=== PATIENT | male | born 1950 | race Caucasian/White ===

== ENCOUNTER 2016-03-09 14:30 | Inpatient (IN) | payer MEDICARE, OTHER ==
[~2016-03-09] VITALS: Ht 177.8 cm; Wt 154.7 kg
[~2016-03-09 14:30] MED LIST: AMIT50TA3 PO; ARIP10TA14 PO; DIVA500T35 PO; DONE10TA43 PO; MEMA10TA11 PO; OLAN5TAB2 PO; ROSU10 PO; VALS80TA2 PO
[2016-03-09] MEDS ORDERED: LOSA50TA37 PO (14:45)
[2016-03-09] MEDS ORDERED: BISA5TAB12 PO (14:45)
[2016-03-09] MEDS ORDERED: VITAD1000 PO (14:45)
[2016-03-09] MEDS ORDERED: METO25 PO (14:45)
[2016-03-09] MEDS ORDERED: FAMO20 PO (14:45)
[2016-03-09] MEDS ORDERED: ASPI-556 PO (14:45)
[2016-03-09] MEDS ORDERED: ONDA4 PO (14:45)
[2016-03-09] MEDS ORDERED: DOCU250C91 PO (14:45)
[2016-03-09] MEDS ORDERED: HYDR25TA PO (14:45)
[2016-03-09] MEDS ORDERED: RIVA1PAT TD (14:45)
[2016-03-09] MEDS ORDERED: [UNRECOGNIZED DRUG - CODE] ID (14:45)
[2016-03-09] MEDS ORDERED: CLOZ100 PO (14:45)
[2016-03-09] MEDS ORDERED: IPRA3AMP4 NEB (14:45)
[2016-03-09] MEDS ORDERED: SIMV-259 PO (14:45)
[2016-03-09] MEDS ORDERED: ADV250 IH (14:45)
[2016-03-09] MEDS ORDERED: BISA10S PR (14:45)
[2016-03-09] MEDS ORDERED: ACET-2247 PO (14:45)
[2016-03-09 15:35] LABS: BASOPHILS # (AUTO) 0.03 K/uL (0.00-0.20); BASOPHILS % (AUTO) 0.3 % (0.0-2.0); EOSINOPHILS % (AUTO) 0.01 % (1.0-6.0); HEMATOCRIT 43.2 % (41-53); HEMOGLOBIN 13.9 g/dL (13.5-17.5); LYMPHOCYTES % (AUTO) 18.4 % (22.0-44.0); MEAN CORPUSCULAR HEMOGLOBIN 30.4 pg (26.0-34.0); MEAN CORPUSCULAR HGB CONC 32.3 G/dL (31.0-37.0); MEAN CORPUSCULAR VOLUME 94 fL (80-100); MONOCYTES # (AUTO) 1.2 K/uL (0.1-1.0); MONOCYTES % (AUTO) 11.5 % (2.0-9.0); NEUTROPHILS # (AUTO) 7.5 K/uL (1.8-7.7); NEUTROPHILS % (AUTO) 69.8 % (40.0-70.0); PLATELET COUNT (AUTO) 297 K/uL (150-450); RED BLOOD CELL COUNT(AUTO) 4.58 MIL/uL (4.50-5.90); RED CELL DISTRIBUTION WIDTH 15.5 % (11.5-14.5); WHITE BLOOD COUNT (AUTO) 10.7 K/uL (4.5-11.0)
[2016-03-09 15:38] LABS: APPEARANCE,URINE CLEAR (CLEAR); GLUCOSE, URINE (UA) NEGATIVE (NEGATIVE); KETONES,URINE 15 mg/dL (NEGATIVE); LEUKOCYTE ESTERASE ,URINE NEGATIVE (NEGATIVE); OCCULT BLOOD,URINE NEGATIVE (NEGATIVE); PH,URINE 5.5 (5.0-8.0); PROTEIN,URINE POS 1+ (NEGATIVE)
[2016-03-09 15:42] LABS: ADD UA MICROSCOPIC NO
[2016-03-09 15:44] LABS: ANION GAP 16 mmol/L (8-16); CALCIUM, TOTAL 10.3 mg/dL (8.8-10.5); CARBON DIOXIDE 25 mmol/L (22-29); CHLORIDE 110 mmol/L (98-107); CREATININE 1.29 mg/dL (0.60-1.30); GLOMERULAR FILTR. RATE CALC 56 mL/min (>60); POTASSIUM 4.1 mmol/L (3.5-5.1); SODIUM SERUM 151 mmol/L (136-145); UREA NITROGEN, BLOOD 40 mg/dL (7-18)
[2016-03-09 15:45] LABS: INR 1.1 (0.9-1.1)
[2016-03-09] MEDS ORDERED: ACETAMINOPHEN 1000 MG/ISO-OSM 100 ML IV ONE (15:45)
[2016-03-09 15:51] LABS: AMMONIA 14 umol/L (11-32)
[2016-03-09 15:52] LABS: TROPONIN I < 0.02 ng/mL (0.00-0.05)
[2016-03-09 16:00] LABS: B-TYPE NATRIURETIC PEPTIDE 29 pg/mL (0-100)
[2016-03-09] MEDS ORDERED: SODIUM CHLORIDE 0.9% 1,000 ML IV ONE (16:00)
[2016-03-09 16:11] LABS: LACTIC ACID 2.6 mmol/L (0.4-2.0)
[2016-03-09 16:13] LABS: ALANINE AMINOTRANSFERASE 42 U/L (12-78); ALBUMIN 4.3 g/dL (3.4-5.0); ASPARTATE AMINOTRANSFERASE 44 U/L (15-37); BILIRUBIN,TOTAL 0.5 mg/dL (0.1-1.0); CREATINE KINASE MB 3.3 ng/mL (0-5); TOTAL PROTEIN, SERUM 8.2 g/dL (6.4-8.2)
[2016-03-09 16:14] LABS: CREATINE KINASE, TOTAL 1300 U/L (39-308)
[2016-03-09] MEDS ORDERED: IOVERSOL 350 MG/ML 100 ML VIAL ONE (16:22)
[2016-03-09] MEDS ORDERED: SODIUM CHLORIDE 0.9% 100 ML ONE (16:22)
[2016-03-09 17:22] LABS: REFLEX LACTIC ACID? YES YES
[2016-03-09 17:27] LABS: INFLUENZA TYPE B NEGATIVE FOR TYPE B (NEGATIVE)
[2016-03-09 17:40] LABS: PROCALCITONIN (PCT) < 0.05 ng/mL (<0.50)
[2016-03-09] MEDS ORDERED: AZITHROMYCIN 500 MG/NS 250 ML IV ONE (17:45)
[2016-03-09] MEDS ORDERED: CefTRIAXone 1 GM/DEXTROSE 50 ML IV ONE (17:45)
[2016-03-09] MEDS ORDERED: IBUPROFEN 100 MG/5 ML SUSPENSION UDCUP PO ONE (19:00)
[2016-03-09] MEDS ORDERED: LORazepam 2 MG/ML VIAL IVP ONE (20:15)
[2016-03-09 23:03] VITALS: BP 130/73
[2016-03-10] MEDS ORDERED: INFLUENZA VIRUS VACCINE QVS 2016-17 (3YR+)/PF 60 MCG/0.5 ML SYRINGE IM ONE (00:15)
[2016-03-10 04:14] VITALS: BP 121/71
[2016-03-10 08:17] VITALS: BP 139/100
[2016-03-10 11:07] VITALS: BP 127/67
[2016-03-10 11:51] LABS: CALCIUM, TOTAL 9.6 mg/dL (8.8-10.5); CREATININE 1.37 mg/dL (0.60-1.30); POTASSIUM 3.9 mmol/L (3.5-5.1)
[2016-03-10 11:59] LABS: ALBUMIN 3.9 g/dL (3.4-5.0); BILIRUBIN,TOTAL 0.6 mg/dL (0.1-1.0); TOTAL PROTEIN, SERUM 7.6 g/dL (6.4-8.2)
[2016-03-10] MEDS ORDERED: IPRATROPIUM BROMIDE 0.5 MG/2.5 ML NEB SOLUTION NEB PRN (14:45)
[2016-03-10] MEDS: IPRATROPIUM BROMIDE 0.5 MG/2.5 ML NEB SOLUTION NEB SCH ×2 (16:11→20:12)
[2016-03-10] MEDS: ALBUTEROL SULFATE 2.5 MG/0.5 ML NEB SOLUTION NEB SCH ×2 (16:11→20:12)
[2016-03-10] MEDS: HEPARIN SODIUM,PORCINE 5,000 UNITS/ML VIAL SQ SCH ×2 (16:15→23:22)
[2016-03-10] MEDS: DEXTROSE 5%-WATER 1,000 ML IV SCH (16:18)
[2016-03-10 16:55] VITALS: BP 153/69
[2016-03-10 17:20] LABS: ANION GAP 13 mmol/L (8-16); CALCIUM, TOTAL 9.6 mg/dL (8.8-10.5); CARBON DIOXIDE 27 mmol/L (22-29); CHLORIDE 114 mmol/L (98-107); CREATININE 1.47 mg/dL (0.60-1.30); GLOMERULAR FILTR. RATE CALC 48 mL/min (>60); PHOSPHORUS 2.7 mg/dL (2.5-4.9); POTASSIUM 4.1 mmol/L (3.5-5.1); SODIUM SERUM 154 mmol/L (136-145); UREA NITROGEN, BLOOD 44 mg/dL (7-18)
[2016-03-10 17:26] LABS: PROCALCITONIN (PCT) < 0.05 ng/mL (<0.50)
[2016-03-10 19:29] VITALS: BP 144/88
[2016-03-10] MEDS ORDERED: BENZTROPINE MESYLATE 1 MG TABLET PO ONE (20:45)
[2016-03-10] MEDS: METOPROLOL TARTRATE 25 MG TABLET PO SCH (21:04)
[2016-03-10] MEDS: ACETAMINOPHEN 325 MG TABLET PO PRN (21:04)
[2016-03-10] MEDS: SIMVASTATIN 10 MG TABLET PO SCH (21:04)
[2016-03-10] MEDS: DOCUSATE SODIUM 250 MG CAPSULE PO SCH (21:04)
[2016-03-10] MEDS: CHOLECALCIFEROL (VIT D3) 1,000 UNITS TABLET PO SCH (21:04)
[2016-03-10] MEDS: NYSTATIN 15 GM POWDER BOTTLE TP SCH (21:23)
[2016-03-10 23:03] VITALS: BP 147/89
[2016-03-11] MEDS: ACETAMINOPHEN 325 MG TABLET PO PRN (01:23)
[2016-03-11] MEDS: HYDROCODONE/ACETAMINOPHEN 5-325 MG TABLET PO PRN (01:23)
[2016-03-11 01:38] VITALS: BP 145/75
[2016-03-11] MEDS ORDERED: LORazepam 2 MG/ML VIAL IVP ONE (02:00)
[2016-03-11] MEDS: DEXTROSE 5%-WATER 1,000 ML IV SCH ×2 (03:30→17:14)
[2016-03-11 05:39] VITALS: BP 129/83
[2016-03-11 07:12] LABS: BASOPHILS % (AUTO) 0.4 % (0.0-2.0); EOSINOPHILS % (AUTO) 0 % (1.0-6.0); HEMATOCRIT 39.8 % (41-53); HEMOGLOBIN 12.8 g/dL (13.5-17.5); LYMPHOCYTES # (AUTO) 2.1 K/uL (1.0-4.8); LYMPHOCYTES % (AUTO) 21.9 % (22.0-44.0); MEAN CORPUSCULAR HEMOGLOBIN 30.4 pg (26.0-34.0); MEAN CORPUSCULAR VOLUME 95 fL (80-100); MONOCYTES # (AUTO) 1.4 K/uL (0.1-1.0); MONOCYTES % (AUTO) 14.3 % (2.0-9.0); NEUTROPHILS # (AUTO) 6.1 K/uL (1.8-7.7); NEUTROPHILS % (AUTO) 63.4 % (40.0-70.0); PLATELET COUNT (AUTO) 249 K/uL (150-450); RED CELL DISTRIBUTION WIDTH 15.1 % (11.5-14.5); WHITE BLOOD COUNT (AUTO) 9.7 K/uL (4.5-11.0)
[2016-03-11 07:15] LABS: ALANINE AMINOTRANSFERASE 43 U/L (12-78); ALBUMIN 3.3 g/dL (3.4-5.0); ANION GAP 10 mmol/L (8-16); ASPARTATE AMINOTRANSFERASE 81 U/L (15-37); BILIRUBIN,TOTAL 0.6 mg/dL (0.1-1.0); CALCIUM, TOTAL 8.8 mg/dL (8.8-10.5); CARBON DIOXIDE 29 mmol/L (22-29); CHLORIDE 116 mmol/L (98-107); GLOMERULAR FILTR. RATE CALC > 60 mL/min (>60); PHOSPHORUS 3.5 mg/dL (2.5-4.9); POTASSIUM 3.4 mmol/L (3.5-5.1); SODIUM SERUM 155 mmol/L (136-145); TOTAL PROTEIN, SERUM 6.7 g/dL (6.4-8.2); UREA NITROGEN, BLOOD 40 mg/dL (7-18)
[2016-03-11] MEDS ORDERED: POTASSIUM CHLORIDE 20 MEQ ER TABLET PO ONE (08:00)
[2016-03-11] MEDS: METOPROLOL TARTRATE 25 MG TABLET PO SCH ×2 (08:15→21:00)
[2016-03-11] MEDS: ASPIRIN 81 MG EC TABLET PO SCH (08:15)
[2016-03-11] MEDS: CHOLECALCIFEROL (VIT D3) 1,000 UNITS TABLET PO SCH ×2 (08:15→21:00)
[2016-03-11] MEDS: FAMOTIDINE 20 MG TABLET PO SCH (08:15)
[2016-03-11] MEDS: HEPARIN SODIUM,PORCINE 5,000 UNITS/ML VIAL SQ SCH ×3 (08:16→23:18)
[2016-03-11] MEDS: FLUTICASONE/VILANTEROL 200-25 MCG/INH INHALER [14] IH SCH (08:16)
[2016-03-11] MEDS: NYSTATIN 15 GM POWDER BOTTLE TP SCH ×2 (08:16→20:39)
[2016-03-11] MEDS ORDERED: RIVASTIGMINE 4.6 MG/24 HOUR PATCH TD SCH (09:00)
[2016-03-11] MEDS ORDERED: LOSARTAN POTASSIUM 50 MG TABLET PO SCH (09:00)
[2016-03-11] MEDS ORDERED: HYDROCHLOROTHIAZIDE 25 MG TABLET PO SCH (09:00)
[2016-03-11 09:08] VITALS: BP 127/69
[2016-03-11] MEDS: IPRATROPIUM BROMIDE 0.5 MG/2.5 ML NEB SOLUTION NEB SCH ×4 (09:25→20:14)
[2016-03-11] MEDS: ALBUTEROL SULFATE 2.5 MG/0.5 ML NEB SOLUTION NEB SCH ×4 (09:25→20:14)
[2016-03-11] MEDS: AmLODIPine BESYLATE 5 MG TABLET PO SCH (11:21)
[2016-03-11 11:24] VITALS: BP 147/63
[2016-03-11] MEDS: POTASSIUM CHL 10 MEQ/WATER 50 ML IV SCH ×2 (11:41→12:52)
[2016-03-11 15:27] LABS: CALCIUM, TOTAL 9.2 mg/dL (8.8-10.5); CREATININE 1.48 mg/dL (0.60-1.30); POTASSIUM 4.4 mmol/L (3.5-5.1)
[2016-03-11 15:50] VITALS: BP 136/68
[2016-03-11] MEDS ORDERED: LORazepam 2 MG/ML VIAL IVP SCH (17:00)
[2016-03-11 19:30] VITALS: BP 131/64
[2016-03-11] MEDS: ACETAMINOPHEN 650 MG RECTAL SUPPOSITORY PR PRN (20:38)
[2016-03-11] MEDS: SIMVASTATIN 10 MG TABLET PO SCH (21:00)
[2016-03-11] MEDS: DOCUSATE SODIUM 250 MG CAPSULE PO SCH (21:00)
[2016-03-11] MEDS ORDERED: CloZAPine 25 MG TABLET PO SCH (21:00)
[2016-03-11] MEDS ORDERED: CloZAPine 100 MG TABLET PO SCH (21:00)
[2016-03-11] MEDS ORDERED: CloZAPine 100 MG TABLET PO ONE (21:30)
[2016-03-11] MEDS: LORazepam 2 MG/ML VIAL IVP PRN (21:49)
[2016-03-11 22:50] LABS: APPEARANCE,URINE CLOUDY (CLEAR); GLUCOSE, URINE (UA) NEGATIVE (NEGATIVE); KETONES,URINE 40 mg/dL (NEGATIVE); LEUKOCYTE ESTERASE ,URINE SMALL (NEGATIVE); OCCULT BLOOD,URINE MODERATE (NEGATIVE); PH,URINE 5.5 (5.0-8.0); PROTEIN,URINE POS 1+ (NEGATIVE)
[2016-03-11 22:55] LABS: ADD UA MICROSCOPIC YES
[2016-03-11 23:02] LABS: SQUAMOUS EPITHELIAL CELL,UR Few /LPF (None Seen)
[2016-03-12] VITALS (7 sets, daily range): BP systolic 135–189; BP diastolic 63–107
[2016-03-12] MEDS ORDERED: 0.9% SODIUM CHLORIDE 10 ML SYRINGE IVP PRN (03:15)
[2016-03-12] MEDS: DEXTROSE 5%-WATER 1,000 ML IV SCH ×2 (03:41→13:16)
[2016-03-12] MEDS: LORazepam 2 MG/ML VIAL IVP PRN ×3 (04:36→14:58)
[2016-03-12] MEDS: ACETAMINOPHEN 650 MG RECTAL SUPPOSITORY PR PRN (05:05)
[2016-03-12 06:49] LABS: BASOPHILS % (AUTO) 0.6 % (0.0-2.0); EOSINOPHILS % (AUTO) 0.2 % (1.0-6.0); HEMATOCRIT 42.5 % (41-53); HEMOGLOBIN 13.8 g/dL (13.5-17.5); LYMPHOCYTES # (AUTO) 3.1 K/uL (1.0-4.8); LYMPHOCYTES % (AUTO) 24.8 % (22.0-44.0); MEAN CORPUSCULAR HEMOGLOBIN 30.9 pg (26.0-34.0); MEAN CORPUSCULAR HGB CONC 32.5 G/dL (31.0-37.0); MEAN CORPUSCULAR VOLUME 95 fL (80-100); MONOCYTES # (AUTO) 1.7 K/uL (0.1-1.0); MONOCYTES % (AUTO) 13.5 % (2.0-9.0); NEUTROPHILS # (AUTO) 7.7 K/uL (1.8-7.7); NEUTROPHILS % (AUTO) 60.9 % (40.0-70.0); PLATELET COUNT (AUTO) 261 K/uL (150-450); RED BLOOD CELL COUNT(AUTO) 4.48 MIL/uL (4.50-5.90); RED CELL DISTRIBUTION WIDTH 15.2 % (11.5-14.5); WHITE BLOOD COUNT (AUTO) 12.6 K/uL (4.5-11.0)
[2016-03-12 07:31] LABS: ALANINE AMINOTRANSFERASE 56 U/L (12-78); ALBUMIN 3.6 g/dL (3.4-5.0); ANION GAP 7 mmol/L (8-16); ASPARTATE AMINOTRANSFERASE 105 U/L (15-37); BILIRUBIN,TOTAL 0.8 mg/dL (0.1-1.0); CARBON DIOXIDE 30 mmol/L (22-29); CHLORIDE 112 mmol/L (98-107); CREATINE KINASE MB 7.9 ng/mL (0-5); CREATININE 1.21 mg/dL (0.60-1.30); GLOMERULAR FILTR. RATE CALC 60 mL/min (>60); PHOSPHORUS 3.3 mg/dL (2.5-4.9); POTASSIUM 3.7 mmol/L (3.5-5.1); SODIUM SERUM 149 mmol/L (136-145); TOTAL PROTEIN, SERUM 7.1 g/dL (6.4-8.2); UREA NITROGEN, BLOOD 32 mg/dL (7-18)
[2016-03-12 07:33] LABS: CREATINE KINASE, TOTAL 2550 U/L (39-308)
[2016-03-12 07:38] LABS: LACTIC ACID 2.3 mmol/L (0.4-2.0)
[2016-03-12 08:28] LABS: REFLEX LACTIC ACID? YES YES
[2016-03-12] MEDS: HEPARIN SODIUM,PORCINE 5,000 UNITS/ML VIAL SQ SCH ×3 (08:59→23:58)
[2016-03-12] MEDS: FLUTICASONE/VILANTEROL 200-25 MCG/INH INHALER [14] IH SCH (09:00)
[2016-03-12] MEDS: METOPROLOL TARTRATE 25 MG TABLET PO SCH ×2 (09:00→21:20)
[2016-03-12] MEDS: ASPIRIN 81 MG EC TABLET PO SCH (09:00)
[2016-03-12] MEDS ORDERED: CloZAPine 25 MG TABLET PO SCH ×2 (09:00→21:00)
[2016-03-12] MEDS: CHOLECALCIFEROL (VIT D3) 1,000 UNITS TABLET PO SCH ×2 (09:01→21:20)
[2016-03-12] MEDS: FAMOTIDINE 20 MG TABLET PO SCH (09:01)
[2016-03-12] MEDS: NYSTATIN 15 GM POWDER BOTTLE TP SCH ×2 (09:01→21:21)
[2016-03-12] MEDS: AmLODIPine BESYLATE 5 MG TABLET PO SCH (09:01)
[2016-03-12] MEDS: IPRATROPIUM BROMIDE 0.5 MG/2.5 ML NEB SOLUTION NEB SCH ×4 (09:41→20:03)
[2016-03-12] MEDS: ALBUTEROL SULFATE 2.5 MG/0.5 ML NEB SOLUTION NEB SCH ×4 (09:41→20:03)
[2016-03-12 15:18] LABS: ABG A-A DIFF O2 77.3 mmHg (10-20.0); ABG BASE EXCESS -0.4 mmol/L (-2.0-3.0); ABG HCO3 24.6 mmol/L (22.0-26.0); ABG OXYHEMOGLOBIN 95.5 % (94.0-100.0); ABG PCO2 36 mmHg (35-45); ABG PH 7.443 (7.35-7.450); ALLEN TEST, BLOOD GAS Positive; TEMPERATURE, FAHRENHEIT, BG 99.2 FAHREN (96.0-98.6)
[2016-03-12] MEDS: BROMOCRIPTINE MESYLATE 2.5 MG TABLET PO SCH ×2 (16:01→21:22)
[2016-03-12] MEDS: DANTROLENE SODIUM IV SCH (16:02)
[2016-03-12] MEDS: CONTAINER EMPTY IV SCH (16:02)
[2016-03-12] MEDS ORDERED: MEMANTINE HCL 10 MG TABLET PO SCH (21:00)
[2016-03-12] MEDS ORDERED: CloZAPine 100 MG TABLET PO SCH ×2 (21:00)
[2016-03-12] MEDS: DOCUSATE SODIUM 250 MG CAPSULE PO SCH (21:20)
[2016-03-12] MEDS: SIMVASTATIN 10 MG TABLET PO SCH (21:20)
[2016-03-13] VITALS: BP 134/79
[2016-03-13] MEDS: DEXTROSE 5%-WATER 1,000 ML IV SCH ×2 (00:08→08:32)
[2016-03-13] MEDS: CONTAINER EMPTY IV SCH ×3 (00:09→16:18)
[2016-03-13] MEDS: DANTROLENE SODIUM IV SCH ×3 (00:09→16:18)
[2016-03-13 04:00] VITALS: BP 146/99
[2016-03-13 05:20] LABS: ANION GAP 7 mmol/L (8-16); CALCIUM, TOTAL 8.8 mg/dL (8.8-10.5); CARBON DIOXIDE 27 mmol/L (22-29); CHLORIDE 108 mmol/L (98-107); CREATININE 0.96 mg/dL (0.60-1.30); GLOMERULAR FILTR. RATE CALC > 60 mL/min (>60); PHOSPHORUS 3.3 mg/dL (2.5-4.9); POTASSIUM 3.9 mmol/L (3.5-5.1); SODIUM SERUM 142 mmol/L (136-145); UREA NITROGEN, BLOOD 27 mg/dL (7-18)
[2016-03-13] MEDS: ALBUTEROL SULFATE 2.5 MG/0.5 ML NEB SOLUTION NEB SCH ×4 (07:29→21:00)
[2016-03-13] MEDS: IPRATROPIUM BROMIDE 0.5 MG/2.5 ML NEB SOLUTION NEB SCH ×4 (07:29→21:00)
[2016-03-13 08:00] VITALS: BP 140/74
[2016-03-13] MEDS: BROMOCRIPTINE MESYLATE 2.5 MG TABLET PO SCH ×3 (08:28→21:02)
[2016-03-13] MEDS: METOPROLOL TARTRATE 25 MG TABLET PO SCH ×2 (08:28→21:03)
[2016-03-13] MEDS: AmLODIPine BESYLATE 5 MG TABLET PO SCH (08:29)
[2016-03-13] MEDS: FAMOTIDINE 20 MG TABLET PO SCH (08:29)
[2016-03-13] MEDS: CHOLECALCIFEROL (VIT D3) 1,000 UNITS TABLET PO SCH ×2 (08:29→21:03)
[2016-03-13] MEDS: ASPIRIN 81 MG EC TABLET PO SCH (08:29)
[2016-03-13] MEDS: HEPARIN SODIUM,PORCINE 5,000 UNITS/ML VIAL SQ SCH ×2 (08:30→16:27)
[2016-03-13] MEDS: NYSTATIN 15 GM POWDER BOTTLE TP SCH ×2 (08:30→21:03)
[2016-03-13] MEDS: FLUTICASONE/VILANTEROL 200-25 MCG/INH INHALER [14] IH SCH (08:31)
[2016-03-13] MEDS: LORazepam 2 MG/ML VIAL IVP PRN ×4 (08:31→21:02)
[2016-03-13 12:00] VITALS: BP 126/78
[2016-03-13] MEDS: DEXTROSE 5%-0.45% SODIUM CHL 1,000 ML IV SCH (12:36)
[2016-03-13 16:00] VITALS: BP 116/68
[2016-03-13 20:00] VITALS: BP 126/64
[2016-03-13] MEDS: SIMVASTATIN 10 MG TABLET PO SCH (21:03)
[2016-03-13] MEDS: DOCUSATE SODIUM 250 MG CAPSULE PO SCH (21:03)
[2016-03-14] VITALS (8 sets, daily range): BP systolic 99–147; BP diastolic 55–79
[2016-03-14] MEDS: CONTAINER EMPTY IV SCH ×3 (00:30→16:10)
[2016-03-14] MEDS: DANTROLENE SODIUM IV SCH ×3 (00:30→16:10)
[2016-03-14] MEDS: HEPARIN SODIUM,PORCINE 5,000 UNITS/ML VIAL SQ SCH ×3 (00:30→15:04)
[2016-03-14] MEDS: DEXTROSE 5%-0.45% SODIUM CHL 1,000 ML IV SCH (04:19)
[2016-03-14] MEDS: LORazepam 2 MG/ML VIAL IVP PRN ×3 (04:19→20:48)
[2016-03-14 05:05] LABS: ANION GAP 5 mmol/L (8-16); CALCIUM, TOTAL 8.4 mg/dL (8.8-10.5); CARBON DIOXIDE 29 mmol/L (22-29); CHLORIDE 105 mmol/L (98-107); CREATININE 0.92 mg/dL (0.60-1.30); GLOMERULAR FILTR. RATE CALC > 60 mL/min (>60); PHOSPHORUS 3.5 mg/dL (2.5-4.9); SODIUM SERUM 139 mmol/L (136-145); UREA NITROGEN, BLOOD 26 mg/dL (7-18)
[2016-03-14] MEDS: IPRATROPIUM BROMIDE 0.5 MG/2.5 ML NEB SOLUTION NEB SCH ×4 (07:51→20:24)
[2016-03-14] MEDS: ALBUTEROL SULFATE 2.5 MG/0.5 ML NEB SOLUTION NEB SCH ×4 (07:51→20:24)
[2016-03-14] MEDS: FLUTICASONE/VILANTEROL 200-25 MCG/INH INHALER [14] IH SCH (09:00)
[2016-03-14] MEDS: AmLODIPine BESYLATE 5 MG TABLET PO SCH (09:01)
[2016-03-14] MEDS: ASPIRIN 81 MG EC TABLET PO SCH (09:01)
[2016-03-14] MEDS: NYSTATIN 15 GM POWDER BOTTLE TP SCH ×2 (09:02→20:48)
[2016-03-14] MEDS: FAMOTIDINE 20 MG TABLET PO SCH (09:02)
[2016-03-14] MEDS: CHOLECALCIFEROL (VIT D3) 1,000 UNITS TABLET PO SCH ×2 (09:02→20:47)
[2016-03-14] MEDS: BROMOCRIPTINE MESYLATE 2.5 MG TABLET PO SCH ×3 (09:02→20:47)
[2016-03-14] MEDS: METOPROLOL TARTRATE 25 MG TABLET PO SCH ×2 (09:02→20:47)
[2016-03-14] MEDS: ACETAMINOPHEN 325 MG TABLET NG PRN (09:02)
[2016-03-14] MEDS: BISACODYL 10 MG RECTAL RECTAL SUPPOSITORY PR PRN (09:02)
[2016-03-14 09:20] LABS: BASOPHILS % (AUTO) 0.5 % (0.0-2.0); EOSINOPHILS % (AUTO) 4.2 % (1.0-6.0); HEMATOCRIT 39.1 % (41-53); HEMOGLOBIN 12.8 g/dL (13.5-17.5); LYMPHOCYTES % (AUTO) 30.7 % (22.0-44.0); MEAN CORPUSCULAR HEMOGLOBIN 31.4 pg (26.0-34.0); MEAN CORPUSCULAR HGB CONC 32.7 G/dL (31.0-37.0); MEAN CORPUSCULAR VOLUME 96 fL (80-100); MONOCYTES # (AUTO) 0.7 K/uL (0.1-1.0); MONOCYTES % (AUTO) 7.2 % (2.0-9.0); NEUTROPHILS # (AUTO) 5.6 K/uL (1.8-7.7); NEUTROPHILS % (AUTO) 57.4 % (40.0-70.0); PLATELET COUNT (AUTO) 193 K/uL (150-450); RED BLOOD CELL COUNT(AUTO) 4.08 MIL/uL (4.50-5.90); RED CELL DISTRIBUTION WIDTH 15.1 % (11.5-14.5); WHITE BLOOD COUNT (AUTO) 9.7 K/uL (4.5-11.0)
[2016-03-14] MEDS: SIMVASTATIN 10 MG TABLET PO SCH (20:47)
[2016-03-14] MEDS: DOCUSATE SODIUM 250 MG CAPSULE PO SCH (20:47)
[2016-03-15] VITALS: BP 135/58
[2016-03-15] MEDS: CONTAINER EMPTY IV SCH ×3 (01:09→15:46)
[2016-03-15] MEDS: HEPARIN SODIUM,PORCINE 5,000 UNITS/ML VIAL SQ SCH ×3 (01:09→15:46)
[2016-03-15] MEDS: DANTROLENE SODIUM IV SCH ×3 (01:09→15:46)
[2016-03-15 04:00] VITALS: BP 145/85
[2016-03-15 05:04] LABS: BASOPHILS % (AUTO) 0.2 % (0.0-2.0); EOSINOPHILS % (AUTO) 0.6 % (1.0-6.0); HEMATOCRIT 40.1 % (41-53); HEMOGLOBIN 12.9 g/dL (13.5-17.5); LYMPHOCYTES # (AUTO) 2.3 K/uL (1.0-4.8); LYMPHOCYTES % (AUTO) 20.4 % (22.0-44.0); MEAN CORPUSCULAR HEMOGLOBIN 30.8 pg (26.0-34.0); MEAN CORPUSCULAR HGB CONC 32.3 G/dL (31.0-37.0); MEAN CORPUSCULAR VOLUME 95 fL (80-100); MONOCYTES # (AUTO) 0.9 K/uL (0.1-1.0); MONOCYTES % (AUTO) 7.9 % (2.0-9.0); NEUTROPHILS # (AUTO) 7.9 K/uL (1.8-7.7); NEUTROPHILS % (AUTO) 70.9 % (40.0-70.0); PLATELET COUNT (AUTO) 205 K/uL (150-450); RED CELL DISTRIBUTION WIDTH 14.9 % (11.5-14.5); WHITE BLOOD COUNT (AUTO) 11.2 K/uL (4.5-11.0)
[2016-03-15 05:23] LABS: ANION GAP 6 mmol/L (8-16); CALCIUM, TOTAL 8.6 mg/dL (8.8-10.5); CARBON DIOXIDE 27 mmol/L (22-29); CHLORIDE 103 mmol/L (98-107); CREATININE 0.91 mg/dL (0.60-1.30); GLOMERULAR FILTR. RATE CALC > 60 mL/min (>60); SODIUM SERUM 136 mmol/L (136-145); UREA NITROGEN, BLOOD 27 mg/dL (7-18)
[2016-03-15 08:00] VITALS: BP 132/78
[2016-03-15] MEDS: IPRATROPIUM BROMIDE 0.5 MG/2.5 ML NEB SOLUTION NEB SCH ×4 (08:23→20:25)
[2016-03-15] MEDS: ALBUTEROL SULFATE 2.5 MG/0.5 ML NEB SOLUTION NEB SCH ×4 (08:23→20:24)
[2016-03-15] MEDS: BROMOCRIPTINE MESYLATE 2.5 MG TABLET PO SCH ×3 (08:28→21:07)
[2016-03-15] MEDS: CHOLECALCIFEROL (VIT D3) 1,000 UNITS TABLET PO SCH ×2 (08:29→21:07)
[2016-03-15] MEDS: FAMOTIDINE 20 MG TABLET PO SCH (08:29)
[2016-03-15] MEDS: AmLODIPine BESYLATE 5 MG TABLET PO SCH (08:29)
[2016-03-15] MEDS: METOPROLOL TARTRATE 25 MG TABLET PO SCH ×2 (08:29→21:08)
[2016-03-15] MEDS: ASPIRIN 81 MG EC TABLET PO SCH (08:29)
[2016-03-15] MEDS: NYSTATIN 15 GM POWDER BOTTLE TP SCH ×2 (08:30→21:07)
[2016-03-15] MEDS: LORazepam 2 MG/ML VIAL IVP PRN ×3 (08:30→16:52)
[2016-03-15] MEDS: FLUTICASONE/VILANTEROL 200-25 MCG/INH INHALER [14] IH SCH (08:31)
[2016-03-15 12:00] VITALS: BP 128/74
[2016-03-15] MEDS ORDERED: 0.9% SODIUM CHLORIDE 5 ML NEB SOLUTION NEB ONE (14:45)
[2016-03-15 16:00] VITALS: BP 136/74
[2016-03-15 17:27] LABS: GLUCOSE,POINT OF CARE 132 MG/DL (70-110)
[2016-03-15 20:00] VITALS: BP 137/74
[2016-03-15] MEDS: SIMVASTATIN 10 MG TABLET PO SCH (21:08)
[2016-03-15] MEDS: DOCUSATE SODIUM 250 MG CAPSULE PO SCH (21:14)
[2016-03-16] VITALS (7 sets, daily range): BP systolic 110–156; BP diastolic 60–83
[2016-03-16] MEDS: HEPARIN SODIUM,PORCINE 5,000 UNITS/ML VIAL SQ SCH ×4 (00:14→23:58)
[2016-03-16] MEDS: LORazepam 2 MG/ML VIAL IVP PRN ×2 (00:14→21:24)
[2016-03-16] MEDS: CONTAINER EMPTY IV SCH ×3 (00:43→16:34)
[2016-03-16] MEDS: DANTROLENE SODIUM IV SCH ×3 (00:43→16:34)
[2016-03-16] MEDS: ALBUTEROL SULFATE 2.5 MG/0.5 ML NEB SOLUTION NEB SCH ×4 (07:49→20:28)
[2016-03-16] MEDS: IPRATROPIUM BROMIDE 0.5 MG/2.5 ML NEB SOLUTION NEB SCH ×4 (07:49→20:28)
[2016-03-16] MEDS: ASPIRIN 81 MG EC TABLET PO SCH (08:40)
[2016-03-16] MEDS: METOPROLOL TARTRATE 25 MG TABLET PO SCH ×2 (08:40→21:22)
[2016-03-16] MEDS: FAMOTIDINE 20 MG TABLET PO SCH (08:40)
[2016-03-16] MEDS: AmLODIPine BESYLATE 5 MG TABLET PO SCH (08:41)
[2016-03-16] MEDS: CHOLECALCIFEROL (VIT D3) 1,000 UNITS TABLET PO SCH ×2 (08:41→21:23)
[2016-03-16] MEDS: BROMOCRIPTINE MESYLATE 2.5 MG TABLET PO SCH ×3 (08:42→21:23)
[2016-03-16] MEDS: NYSTATIN 15 GM POWDER BOTTLE TP SCH ×2 (08:44→21:23)
[2016-03-16] MEDS: FLUTICASONE/VILANTEROL 200-25 MCG/INH INHALER [14] IH SCH (09:00)
[2016-03-16] MEDS: DOCUSATE SODIUM 250 MG CAPSULE PO SCH (21:00)
[2016-03-16] MEDS: SIMVASTATIN 10 MG TABLET PO SCH (21:22)
[2016-03-16] MEDS: HYDROCODONE/ACETAMINOPHEN 5-325 MG TABLET PO PRN (21:23)
[2016-03-17] MEDS: DANTROLENE SODIUM IV SCH ×4 (00:15→23:49)
[2016-03-17] MEDS: CONTAINER EMPTY IV SCH ×4 (00:15→23:49)
[2016-03-17 04:52] VITALS: BP 120/66
[2016-03-17 07:51] VITALS: BP 147/79
[2016-03-17] MEDS: IPRATROPIUM BROMIDE 0.5 MG/2.5 ML NEB SOLUTION NEB SCH ×4 (08:18→23:25)
[2016-03-17] MEDS: ALBUTEROL SULFATE 2.5 MG/0.5 ML NEB SOLUTION NEB SCH ×4 (08:18→23:25)
[2016-03-17] MEDS: HEPARIN SODIUM,PORCINE 5,000 UNITS/ML VIAL SQ SCH ×3 (08:59→23:49)
[2016-03-17] MEDS: FLUTICASONE/VILANTEROL 200-25 MCG/INH INHALER [14] IH SCH (09:00)
[2016-03-17] MEDS: METOCLOPRAMIDE HCL 5 MG/ML 2 ML VIAL IVP SCH ×2 (09:01→20:47)
[2016-03-17] MEDS: METOPROLOL TARTRATE 25 MG TABLET PO SCH ×2 (09:05→20:47)
[2016-03-17] MEDS: AmLODIPine BESYLATE 5 MG TABLET PO SCH (09:05)
[2016-03-17] MEDS: ASPIRIN 81 MG EC TABLET PO SCH (09:05)
[2016-03-17] MEDS: BROMOCRIPTINE MESYLATE 2.5 MG TABLET PO SCH ×3 (09:05→20:47)
[2016-03-17] MEDS: FAMOTIDINE 20 MG TABLET PO SCH (09:06)
[2016-03-17] MEDS: CHOLECALCIFEROL (VIT D3) 1,000 UNITS TABLET PO SCH ×2 (09:06→20:47)
[2016-03-17] MEDS: NYSTATIN 15 GM POWDER BOTTLE TP SCH ×2 (09:06→20:50)
[2016-03-17 11:43] VITALS: BP 143/66
[2016-03-17 16:02] VITALS: BP 160/76
[2016-03-17 17:19] LABS: EOSINOPHILS % (AUTO) 0.3 % (1.0-6.0); HEMATOCRIT 41.1 % (41-53); HEMOGLOBIN 13.3 g/dL (13.5-17.5); LYMPHOCYTES # (AUTO) 1.6 K/uL (1.0-4.8); LYMPHOCYTES % (AUTO) 12.8 % (22.0-44.0); MEAN CORPUSCULAR HEMOGLOBIN 30.7 pg (26.0-34.0); MEAN CORPUSCULAR HGB CONC 32.5 G/dL (31.0-37.0); MEAN CORPUSCULAR VOLUME 95 fL (80-100); MONOCYTES # (AUTO) 1.2 K/uL (0.1-1.0); NEUTROPHILS % (AUTO) 77.9 % (40.0-70.0); PLATELET COUNT (AUTO) 241 K/uL (150-450); RED BLOOD CELL COUNT(AUTO) 4.34 MIL/uL (4.50-5.90); RED CELL DISTRIBUTION WIDTH 15.2 % (11.5-14.5); WHITE BLOOD COUNT (AUTO) 12.9 K/uL (4.5-11.0)
[2016-03-17 17:38] LABS: ANION GAP 9 mmol/L (8-16); CALCIUM, TOTAL 9.1 mg/dL (8.8-10.5); CARBON DIOXIDE 28 mmol/L (22-29); CHLORIDE 104 mmol/L (98-107); CREATININE 0.94 mg/dL (0.60-1.30); GLOMERULAR FILTR. RATE CALC > 60 mL/min (>60); SODIUM SERUM 141 mmol/L (136-145); UREA NITROGEN, BLOOD 26 mg/dL (7-18)
[2016-03-17] MEDS: ACETAMINOPHEN 325 MG TABLET NG PRN (18:40)
[2016-03-17 20:21] VITALS: BP 154/78
[2016-03-17] MEDS: LORazepam 2 MG/ML VIAL IVP PRN (20:47)
[2016-03-17] MEDS: SIMVASTATIN 10 MG TABLET PO SCH (20:47)
[2016-03-17] MEDS: DOCUSATE SODIUM 250 MG CAPSULE PO SCH (20:47)
[2016-03-18] VITALS (9 sets, daily range): BP systolic 127–165; BP diastolic 62–78
[2016-03-18] MEDS: LORazepam 2 MG/ML VIAL IVP PRN ×3 (01:04→20:09)
[2016-03-18] MEDS: HYDROCODONE/ACETAMINOPHEN 5-325 MG TABLET PO PRN (04:47)
[2016-03-18] MEDS: ACETAMINOPHEN 650 MG RECTAL SUPPOSITORY PR PRN ×2 (05:02→20:03)
[2016-03-18] MEDS: DANTROLENE SODIUM IV SCH (08:14)
[2016-03-18] MEDS: CONTAINER EMPTY IV SCH (08:14)
[2016-03-18] MEDS: IPRATROPIUM BROMIDE 0.5 MG/2.5 ML NEB SOLUTION NEB SCH ×4 (08:26→19:49)
[2016-03-18] MEDS: ALBUTEROL SULFATE 2.5 MG/0.5 ML NEB SOLUTION NEB SCH ×4 (08:26→19:49)
[2016-03-18] MEDS: HEPARIN SODIUM,PORCINE 5,000 UNITS/ML VIAL SQ SCH ×2 (08:55→17:09)
[2016-03-18] MEDS: ASPIRIN 81 MG EC TABLET PO SCH (08:56)
[2016-03-18] MEDS: METOCLOPRAMIDE HCL 5 MG/ML 2 ML VIAL IVP SCH ×2 (08:56→21:55)
[2016-03-18] MEDS: AmLODIPine BESYLATE 5 MG TABLET PO SCH (08:56)
[2016-03-18] MEDS: CHOLECALCIFEROL (VIT D3) 1,000 UNITS TABLET PO SCH ×2 (08:56→21:58)
[2016-03-18] MEDS: METOPROLOL TARTRATE 25 MG TABLET PO SCH ×2 (08:56→22:01)
[2016-03-18] MEDS: BROMOCRIPTINE MESYLATE 2.5 MG TABLET PO SCH ×3 (08:56→21:58)
[2016-03-18] MEDS: FAMOTIDINE 20 MG TABLET PO SCH (08:57)
[2016-03-18] MEDS: FLUTICASONE/VILANTEROL 200-25 MCG/INH INHALER [14] IH SCH (08:57)
[2016-03-18] MEDS: NYSTATIN 15 GM POWDER BOTTLE TP SCH ×2 (08:57→21:59)
[2016-03-18] MEDS ORDERED: MEMA28CA PO (12:35)
[2016-03-18] MEDS: SIMVASTATIN 10 MG TABLET PO SCH (21:58)
[2016-03-18] MEDS: DOCUSATE SODIUM 250 MG CAPSULE PO SCH (21:58)
[2016-03-19] MEDS: LORazepam 2 MG/ML VIAL IVP PRN ×2 (03:19→14:28)
[2016-03-19 04:46] VITALS: BP 140/70
[2016-03-19] MEDS: ACETAMINOPHEN 650 MG RECTAL SUPPOSITORY PR PRN ×3 (05:25→18:11)
[2016-03-19 07:28] VITALS: BP 100/65
[2016-03-19] MEDS: HEPARIN SODIUM,PORCINE 5,000 UNITS/ML VIAL SQ SCH ×4 (08:00→23:53)
[2016-03-19] MEDS: ALBUTEROL SULFATE 2.5 MG/0.5 ML NEB SOLUTION NEB SCH ×4 (08:11→19:31)
[2016-03-19] MEDS: IPRATROPIUM BROMIDE 0.5 MG/2.5 ML NEB SOLUTION NEB SCH ×4 (08:11→19:31)
[2016-03-19] MEDS: METOCLOPRAMIDE HCL 5 MG/ML 2 ML VIAL IVP SCH ×2 (08:35→20:41)
[2016-03-19] MEDS: CHOLECALCIFEROL (VIT D3) 1,000 UNITS TABLET PO SCH (08:35)
[2016-03-19] MEDS: BROMOCRIPTINE MESYLATE 2.5 MG TABLET PO SCH (08:36)
[2016-03-19] MEDS: FAMOTIDINE 20 MG TABLET PO SCH (08:36)
[2016-03-19] MEDS: NYSTATIN 15 GM POWDER BOTTLE TP SCH ×2 (08:36→20:41)
[2016-03-19] MEDS: FLUTICASONE/VILANTEROL 200-25 MCG/INH INHALER [14] IH SCH (08:46)
[2016-03-19] MEDS: ASPIRIN 81 MG EC TABLET PO SCH (08:47)
[2016-03-19] MEDS: AmLODIPine BESYLATE 5 MG TABLET PO SCH (08:47)
[2016-03-19] MEDS: METOPROLOL TARTRATE 25 MG TABLET PO SCH (08:47)
[2016-03-19 11:28] VITALS: BP 136/80
[2016-03-19] MEDS: BROMOCRIPTINE MESYLATE 2.5 MG TABLET NG SCH ×2 (15:30→20:41)
[2016-03-19 15:52] VITALS: BP 148/80
[2016-03-19 18:52] LABS: APPEARANCE,URINE CLOUDY (CLEAR); GLUCOSE, URINE (UA) NEGATIVE (NEGATIVE); KETONES,URINE NEGATIVE (NEGATIVE); LEUKOCYTE ESTERASE ,URINE SMALL (NEGATIVE); OCCULT BLOOD,URINE LARGE (NEGATIVE); PROTEIN,URINE SEE CONFIRM (NEGATIVE)
[2016-03-19 18:56] LABS: ADD UA MICROSCOPIC YES
[2016-03-19 18:58] LABS: SULFOSALICYLIC ACID,URINE 2+ (Negative)
[2016-03-19 18:59] LABS: RBC,URINE 51-100 /HPF (0-2)
[2016-03-19 19:00] LABS: SQUAMOUS EPITHELIAL CELL,UR Rare /LPF (None Seen)
[2016-03-19 19:17] VITALS: BP 160/71
[2016-03-19] MEDS: CHOLECALCIFEROL (VIT D3) 1,000 UNITS TABLET NG SCH (20:40)
[2016-03-19] MEDS: DOCUSATE SODIUM 250 MG CAPSULE NG SCH (20:41)
[2016-03-19] MEDS: METOPROLOL TARTRATE 25 MG TABLET NG SCH (20:41)
[2016-03-20] VITALS (7 sets, daily range): BP systolic 128–185; BP diastolic 53–80
[2016-03-20] MEDS: ACETAMINOPHEN 325 MG TABLET NG PRN ×3 (05:10→21:31)
[2016-03-20] MEDS: LORazepam 2 MG/ML VIAL IVP PRN ×3 (05:29→21:17)
[2016-03-20] MEDS: HEPARIN SODIUM,PORCINE 5,000 UNITS/ML VIAL SQ SCH ×2 (07:39→15:48)
[2016-03-20] MEDS: METOCLOPRAMIDE HCL 5 MG/ML 2 ML VIAL IVP SCH ×2 (08:26→21:00)
[2016-03-20] MEDS: ASPIRIN 81 MG CHEWABLE TABLET NG SCH (08:27)
[2016-03-20] MEDS: FAMOTIDINE 20 MG TABLET NG SCH (08:27)
[2016-03-20] MEDS: METOPROLOL TARTRATE 25 MG TABLET NG SCH ×2 (08:27→21:16)
[2016-03-20] MEDS: AmLODIPine BESYLATE 5 MG TABLET NG SCH (08:27)
[2016-03-20] MEDS: CHOLECALCIFEROL (VIT D3) 1,000 UNITS TABLET NG SCH ×2 (08:27→21:16)
[2016-03-20] MEDS: BROMOCRIPTINE MESYLATE 2.5 MG TABLET NG SCH ×3 (08:28→21:17)
[2016-03-20] MEDS: NYSTATIN 15 GM POWDER BOTTLE TP SCH ×2 (08:29→21:17)
[2016-03-20] MEDS: IPRATROPIUM BROMIDE 0.5 MG/2.5 ML NEB SOLUTION NEB SCH ×4 (08:48→20:49)
[2016-03-20] MEDS: ALBUTEROL SULFATE 2.5 MG/0.5 ML NEB SOLUTION NEB SCH ×4 (08:48→20:49)
[2016-03-20 12:45] LABS: APPEARANCE,URINE CLOUDY (CLEAR); GLUCOSE, URINE (UA) NEGATIVE (NEGATIVE); KETONES,URINE NEGATIVE (NEGATIVE); LEUKOCYTE ESTERASE ,URINE MODERATE (NEGATIVE); OCCULT BLOOD,URINE LARGE (NEGATIVE); PH,URINE 5.5 (5.0-8.0); PROTEIN,URINE SEE CONFIRM (NEGATIVE)
[2016-03-20 12:59] LABS: ADD UA MICROSCOPIC YES; RBC,URINE 51-100 /HPF (0-2)
[2016-03-20] MEDS: DOCUSATE SODIUM 250 MG CAPSULE NG SCH (21:16)
[2016-03-20] MEDS ORDERED: SODIUM CHLORIDE 0.9% 250 ML IV ONE (22:13)
[2016-03-20] MEDS: CefTRIAXone 1 GM/DEXTROSE 50 ML IV SCH (23:27)
[2016-03-21] MEDS: HEPARIN SODIUM,PORCINE 5,000 UNITS/ML VIAL SQ SCH ×4 (00:02→22:46)
[2016-03-21 04:45] VITALS: BP 150/70
[2016-03-21] MEDS: LORazepam 2 MG/ML VIAL IVP PRN ×2 (04:55→13:31)
[2016-03-21 06:06] LABS: LACTIC ACID 0.7 mmol/L (0.4-2.0)
[2016-03-21 06:40] LABS: BASOPHILS % (AUTO) 0.4 % (0.0-2.0); EOSINOPHILS % (AUTO) 0.9 % (1.0-6.0); HEMATOCRIT 38.1 % (41-53); HEMOGLOBIN 12.5 g/dL (13.5-17.5); LYMPHOCYTES # (AUTO) 2.2 K/uL (1.0-4.8); LYMPHOCYTES % (AUTO) 21.1 % (22.0-44.0); MEAN CORPUSCULAR HEMOGLOBIN 30.8 pg (26.0-34.0); MEAN CORPUSCULAR HGB CONC 32.8 G/dL (31.0-37.0); MEAN CORPUSCULAR VOLUME 94 fL (80-100); MONOCYTES # (AUTO) 1.2 K/uL (0.1-1.0); MONOCYTES % (AUTO) 11.7 % (2.0-9.0); NEUTROPHILS % (AUTO) 65.9 % (40.0-70.0); PLATELET COUNT (AUTO) 290 K/uL (150-450); RED BLOOD CELL COUNT(AUTO) 4.07 MIL/uL (4.50-5.90); RED CELL DISTRIBUTION WIDTH 15.8 % (11.5-14.5); WHITE BLOOD COUNT (AUTO) 10.6 K/uL (4.5-11.0)
[2016-03-21 06:41] LABS: ALANINE AMINOTRANSFERASE 108 U/L (12-78); ALBUMIN 2.6 g/dL (3.4-5.0); ANION GAP 9 mmol/L (8-16); ASPARTATE AMINOTRANSFERASE 75 U/L (15-37); BILIRUBIN,TOTAL 0.4 mg/dL (0.1-1.0); CALCIUM, TOTAL 8.9 mg/dL (8.8-10.5); CARBON DIOXIDE 26 mmol/L (22-29); CHLORIDE 114 mmol/L (98-107); CREATINE KINASE MB 2.2 ng/mL (0-5); CREATINE KINASE, TOTAL 402 U/L (39-308); CREATININE 0.91 mg/dL (0.60-1.30); GLOMERULAR FILTR. RATE CALC > 60 mL/min (>60); SODIUM SERUM 149 mmol/L (136-145); TOTAL PROTEIN, SERUM 6.8 g/dL (6.4-8.2); UREA NITROGEN, BLOOD 36 mg/dL (7-18)
[2016-03-21 06:55] LABS: LACTATE DEHYDROGENASE 307 U/L (85-227)
[2016-03-21 07:18] VITALS: BP 151/70
[2016-03-21] MEDS: ALBUTEROL SULFATE 2.5 MG/0.5 ML NEB SOLUTION NEB SCH ×4 (07:58→19:52)
[2016-03-21] MEDS: IPRATROPIUM BROMIDE 0.5 MG/2.5 ML NEB SOLUTION NEB SCH ×4 (07:58→19:52)
[2016-03-21] MEDS: METOPROLOL TARTRATE 25 MG TABLET NG SCH ×2 (09:01→20:33)
[2016-03-21] MEDS: METOCLOPRAMIDE HCL 5 MG/ML 2 ML VIAL IVP SCH (09:01)
[2016-03-21] MEDS: ASPIRIN 81 MG CHEWABLE TABLET NG SCH (09:01)
[2016-03-21] MEDS: AmLODIPine BESYLATE 5 MG TABLET NG SCH (09:02)
[2016-03-21] MEDS: CHOLECALCIFEROL (VIT D3) 1,000 UNITS TABLET NG SCH ×2 (09:02→20:33)
[2016-03-21] MEDS: NYSTATIN 15 GM POWDER BOTTLE TP SCH ×2 (09:02→20:33)
[2016-03-21] MEDS: BROMOCRIPTINE MESYLATE 2.5 MG TABLET NG SCH ×3 (09:02→20:33)
[2016-03-21] MEDS: FAMOTIDINE 20 MG TABLET NG SCH (09:02)
[2016-03-21 11:23] VITALS: BP 128/58
[2016-03-21 15:05] VITALS: BP 138/68
[2016-03-21 19:30] VITALS: BP 142/70
[2016-03-21] MEDS: DOCUSATE SODIUM 250 MG CAPSULE NG SCH (20:33)
[2016-03-21 21:58] LABS: PARTIAL THROMBOPLASTIN TIME < 20 SEC (25-35)
[2016-03-21] MEDS ORDERED: SODIUM CHLORIDE 0.9% 250 ML IV ONE (22:38)
[2016-03-21] MEDS: CefTRIAXone 1 GM/DEXTROSE 50 ML IV SCH (22:45)
[2016-03-22] MEDS ORDERED: CefTRIAXone 1 GM/DEXTROSE 50 ML IV ONE
[2016-03-22 00:47] VITALS: BP 143/88
[2016-03-22] MEDS: ACYCLOVIR IV SCH ×3 (01:14→17:08)
[2016-03-22] MEDS: WATER IV SCH ×3 (01:14→17:08)
[2016-03-22] MEDS: DEXTROSE 5% IV SCH ×3 (01:14→17:08)
[2016-03-22 05:17] VITALS: BP 141/71
[2016-03-22 07:20] VITALS: BP 163/86
[2016-03-22] MEDS: HEPARIN SODIUM,PORCINE 5,000 UNITS/ML VIAL SQ SCH ×2 (08:00→17:06)
[2016-03-22] MEDS: LORazepam 2 MG/ML VIAL IVP PRN ×2 (08:31→20:42)
[2016-03-22] MEDS ORDERED: GADOBUTROL 1 MMOL/ML 10 ML VIAL IVP ONE (08:58)
[2016-03-22] MEDS: BROMOCRIPTINE MESYLATE 2.5 MG TABLET NG SCH ×3 (09:00→20:41)
[2016-03-22] MEDS: ALBUTEROL SULFATE 2.5 MG/0.5 ML NEB SOLUTION NEB SCH ×4 (09:27→19:50)
[2016-03-22] MEDS: IPRATROPIUM BROMIDE 0.5 MG/2.5 ML NEB SOLUTION NEB SCH ×4 (09:27→19:50)
[2016-03-22] MEDS ORDERED: MEPERIDINE-PF 25 MG/ML SYRINGE IVP PRN (11:30)
[2016-03-22] MEDS ORDERED: FentaNYL CITRATE-PF 100 MCG/2 ML VIAL IVP PRN (11:30)
[2016-03-22] MEDS ORDERED: HYDROmorphone 2 MG/ML SYRINGE IVP PRN (11:30)
[2016-03-22] MEDS ORDERED: PROPOFOL 1% 20 ML VIAL IVP ONE (12:00)
[2016-03-22 12:01] LABS: ALANINE AMINOTRANSFERASE 132 U/L (12-78); ALBUMIN 2.8 g/dL (3.4-5.0); ANION GAP 12 mmol/L (8-16); ASPARTATE AMINOTRANSFERASE 87 U/L (15-37); BILIRUBIN,TOTAL 0.5 mg/dL (0.1-1.0); CARBON DIOXIDE 25 mmol/L (22-29); CHLORIDE 115 mmol/L (98-107); CREATININE 1.14 mg/dL (0.60-1.30); GLOMERULAR FILTR. RATE CALC > 60 mL/min (>60); POTASSIUM 4.4 mmol/L (3.5-5.1); SODIUM SERUM 152 mmol/L (136-145); TOTAL PROTEIN, SERUM 6.3 g/dL (6.4-8.2); UREA NITROGEN, BLOOD 42 mg/dL (7-18)
[2016-03-22] MEDS: CHOLECALCIFEROL (VIT D3) 1,000 UNITS TABLET NG SCH ×2 (14:45→20:41)
[2016-03-22] MEDS: METOPROLOL TARTRATE 25 MG TABLET NG SCH ×2 (14:45→20:42)
[2016-03-22] MEDS: AmLODIPine BESYLATE 5 MG TABLET NG SCH (14:46)
[2016-03-22] MEDS: ASPIRIN 81 MG CHEWABLE TABLET NG SCH (14:46)
[2016-03-22] MEDS: FAMOTIDINE 20 MG TABLET NG SCH (14:46)
[2016-03-22] MEDS: NYSTATIN 15 GM POWDER BOTTLE TP SCH ×2 (14:46→20:42)
[2016-03-22] MEDS: CefTRIAXone SODIUM 2 GM in DEXTROSE 5%-WATER 50 ML IV SCH ×2 (14:47→23:04)
[2016-03-22] MEDS ORDERED: SODIUM CHLORIDE 0.9% 250 ML IV ONE (14:51)
[2016-03-22 15:06] VITALS: BP 125/79
[2016-03-22 15:53] LABS: GLUCOSE, CSF 70 mg/dL (50-80); TOTAL PROTEIN, CSF 210 mg/dL (15-45)
[2016-03-22 19:40] VITALS: BP 144/75
[2016-03-22] MEDS: OXYGEN THERAPY IH SCH (20:41)
[2016-03-22] MEDS: DOCUSATE SODIUM 250 MG CAPSULE NG SCH (20:41)
[2016-03-22 21:10] LABS: APPEARANCE,CSF BLOODY (CLEAR)
[2016-03-22 21:11] LABS: COLOR,CSF PINK (COLORLESS)
[2016-03-22] MEDS: ACETAMINOPHEN 325 MG TABLET NG PRN (22:34)
[2016-03-22 23:39] VITALS: BP 129/55
[2016-03-23] MEDS: HEPARIN SODIUM,PORCINE 5,000 UNITS/ML VIAL SQ SCH ×4 (00:07→23:44)
[2016-03-23] MEDS: WATER IV SCH ×4 (00:08→23:42)
[2016-03-23] MEDS: DEXTROSE 5% IV SCH ×4 (00:08→23:42)
[2016-03-23] MEDS: ACYCLOVIR IV SCH ×4 (00:08→23:42)
[2016-03-23] MEDS: LORazepam 2 MG/ML VIAL IVP PRN ×5 (02:16→20:54)
[2016-03-23 04:25] VITALS: BP 122/64
[2016-03-23 07:06] LABS: ALANINE AMINOTRANSFERASE 162 U/L (12-78); ALBUMIN 2.6 g/dL (3.4-5.0); ANION GAP 9 mmol/L (8-16); ASPARTATE AMINOTRANSFERASE 131 U/L (15-37); BILIRUBIN,TOTAL 0.5 mg/dL (0.1-1.0); CALCIUM, TOTAL 9.1 mg/dL (8.8-10.5); CARBON DIOXIDE 27 mmol/L (22-29); CHLORIDE 117 mmol/L (98-107); GLOMERULAR FILTR. RATE CALC > 60 mL/min (>60); POTASSIUM 4.3 mmol/L (3.5-5.1); SODIUM SERUM 153 mmol/L (136-145); TOTAL PROTEIN, SERUM 6.8 g/dL (6.4-8.2); UREA NITROGEN, BLOOD 42 mg/dL (7-18)
[2016-03-23 07:35] VITALS: BP 142/64
[2016-03-23] MEDS: ASPIRIN 81 MG CHEWABLE TABLET NG SCH (09:01)
[2016-03-23] MEDS: BROMOCRIPTINE MESYLATE 2.5 MG TABLET NG SCH ×3 (09:01→20:54)
[2016-03-23] MEDS: METOPROLOL TARTRATE 25 MG TABLET NG SCH ×2 (09:01→20:54)
[2016-03-23] MEDS: CHOLECALCIFEROL (VIT D3) 1,000 UNITS TABLET NG SCH ×2 (09:01→20:54)
[2016-03-23] MEDS: OXYGEN THERAPY IH SCH ×2 (09:01→20:54)
[2016-03-23] MEDS: FAMOTIDINE 20 MG TABLET NG SCH (09:01)
[2016-03-23] MEDS: AmLODIPine BESYLATE 5 MG TABLET NG SCH (09:01)
[2016-03-23] MEDS: NYSTATIN 15 GM POWDER BOTTLE TP SCH ×2 (09:08→21:08)
[2016-03-23] MEDS: ALBUTEROL SULFATE 2.5 MG/0.5 ML NEB SOLUTION NEB SCH ×4 (09:35→19:56)
[2016-03-23] MEDS: IPRATROPIUM BROMIDE 0.5 MG/2.5 ML NEB SOLUTION NEB SCH ×4 (09:35→19:56)
[2016-03-23] MEDS: CefTRIAXone SODIUM 2 GM in DEXTROSE 5%-WATER 50 ML IV SCH (11:03)
[2016-03-23] MEDS: ACETAMINOPHEN 325 MG TABLET NG PRN (11:03)
[2016-03-23 11:23] VITALS: BP 118/68
[2016-03-23] MEDS: AMPICILLIN SODIUM 1 GM/NS 50 ML IV SCH ×2 (13:27→18:19)
[2016-03-23] MEDS ORDERED: SODIUM CHLORIDE 0.9% 250 ML IV PRN (13:45)
[2016-03-23 15:50] VITALS: BP 116/74
[2016-03-23] MEDS: SODIUM CHLORIDE 0.9% 250 ML IV SCH ×2 (16:36→23:43)
[2016-03-23 19:47] VITALS: BP 140/80
[2016-03-23] MEDS: DOCUSATE SODIUM 250 MG CAPSULE NG SCH (20:54)
[2016-03-23 23:38] VITALS: BP 148/77
[2016-03-24] MEDS: AMPICILLIN SODIUM 1 GM/NS 50 ML IV SCH ×4 (01:13→18:34)
[2016-03-24 03:29] VITALS: BP 139/95
[2016-03-24] MEDS: LORazepam 2 MG/ML VIAL IVP PRN ×3 (06:20→20:39)
[2016-03-24 06:39] LABS: BASOPHILS % (AUTO) 0.5 % (0.0-2.0); EOSINOPHILS % (AUTO) 1.6 % (1.0-6.0); HEMATOCRIT 37.9 % (41-53); LYMPHOCYTES # (AUTO) 3.3 K/uL (1.0-4.8); LYMPHOCYTES % (AUTO) 24.7 % (22.0-44.0); MEAN CORPUSCULAR HEMOGLOBIN 30.2 pg (26.0-34.0); MEAN CORPUSCULAR HGB CONC 31.7 G/dL (31.0-37.0); MEAN CORPUSCULAR VOLUME 95 fL (80-100); MONOCYTES # (AUTO) 0.9 K/uL (0.1-1.0); NEUTROPHILS # (AUTO) 8.8 K/uL (1.8-7.7); NEUTROPHILS % (AUTO) 66.2 % (40.0-70.0); PLATELET COUNT (AUTO) 304 K/uL (150-450); RED BLOOD CELL COUNT(AUTO) 3.97 MIL/uL (4.50-5.90); WHITE BLOOD COUNT (AUTO) 13.3 K/uL (4.5-11.0)
[2016-03-24 07:21] LABS: ALANINE AMINOTRANSFERASE 149 U/L (12-78); ALBUMIN 2.7 g/dL (3.4-5.0); ANION GAP 9 mmol/L (8-16); ASPARTATE AMINOTRANSFERASE 112 U/L (15-37); BILIRUBIN,TOTAL 0.4 mg/dL (0.1-1.0); CARBON DIOXIDE 25 mmol/L (22-29); CHLORIDE 115 mmol/L (98-107); CREATININE 0.81 mg/dL (0.60-1.30); GLOMERULAR FILTR. RATE CALC > 60 mL/min (>60); POTASSIUM 4.2 mmol/L (3.5-5.1); SODIUM SERUM 149 mmol/L (136-145); TOTAL PROTEIN, SERUM 6.6 g/dL (6.4-8.2); UREA NITROGEN, BLOOD 36 mg/dL (7-18)
[2016-03-24] MEDS: IPRATROPIUM BROMIDE 0.5 MG/2.5 ML NEB SOLUTION NEB SCH ×4 (07:40→19:45)
[2016-03-24] MEDS: ALBUTEROL SULFATE 2.5 MG/0.5 ML NEB SOLUTION NEB SCH ×4 (07:41→19:45)
[2016-03-24 07:49] VITALS: BP 135/82
[2016-03-24] MEDS: HEPARIN SODIUM,PORCINE 5,000 UNITS/ML VIAL SQ SCH ×2 (08:11→15:32)
[2016-03-24] MEDS: NYSTATIN 15 GM POWDER BOTTLE TP SCH ×2 (08:13→20:39)
[2016-03-24] MEDS: SODIUM CHLORIDE 0.9% 250 ML IV SCH ×2 (08:23→14:15)
[2016-03-24] MEDS: ACYCLOVIR IV SCH ×2 (08:25→17:17)
[2016-03-24] MEDS: WATER IV SCH ×2 (08:25→17:17)
[2016-03-24] MEDS: DEXTROSE 5% IV SCH ×2 (08:25→17:17)
[2016-03-24] MEDS: OXYGEN THERAPY IH SCH ×2 (08:27→19:45)
[2016-03-24] MEDS: ACETAMINOPHEN 650 MG RECTAL SUPPOSITORY PR PRN (11:00)
[2016-03-24] MEDS: ASPIRIN 81 MG CHEWABLE TABLET NG SCH (11:01)
[2016-03-24] MEDS: AmLODIPine BESYLATE 5 MG TABLET NG SCH (11:01)
[2016-03-24] MEDS: FAMOTIDINE 20 MG TABLET NG SCH (11:02)
[2016-03-24] MEDS: BROMOCRIPTINE MESYLATE 2.5 MG TABLET NG SCH ×3 (11:02→20:39)
[2016-03-24] MEDS: METOPROLOL TARTRATE 25 MG TABLET NG SCH ×2 (11:02→20:39)
[2016-03-24] MEDS: CHOLECALCIFEROL (VIT D3) 1,000 UNITS TABLET NG SCH ×2 (11:02→20:39)
[2016-03-24 11:39] VITALS: BP 152/84
[2016-03-24] MEDS ORDERED: SODIUM CHLORIDE 0.9% 100 ML ONE ×2 (12:09→18:34)
[2016-03-24 15:49] VITALS: BP 142/98
[2016-03-24 19:47] VITALS: BP 120/75
[2016-03-24] MEDS: DOCUSATE SODIUM 250 MG CAPSULE NG SCH (20:39)
[2016-03-24 21:06] LABS: ENTEROVIRUS QUAL. RT-PCR Negative (Negative)
[2016-03-24 22:05] LABS: HERPES SIMPLEX VIRUS-1 BY PCR Negative (Negative); HERPES SIMPLEX VIRUS-2 BY PCR Negative (Negative)
[2016-03-24 23:46] VITALS: BP 131/98
[2016-03-25] MEDS: HEPARIN SODIUM,PORCINE 5,000 UNITS/ML VIAL SQ SCH ×4 (00:16→23:02)
[2016-03-25] MEDS: WATER IV SCH ×4 (00:17→23:03)
[2016-03-25] MEDS: DEXTROSE 5% IV SCH ×4 (00:17→23:03)
[2016-03-25] MEDS: ACYCLOVIR IV SCH ×4 (00:17→23:03)
[2016-03-25] MEDS: SODIUM CHLORIDE 0.9% 250 ML IV SCH ×2 (00:18→09:03)
[2016-03-25] MEDS: AMPICILLIN SODIUM 1 GM/NS 50 ML IV SCH ×4 (01:23→19:57)
[2016-03-25 04:11] VITALS: BP 119/78
[2016-03-25 06:18] LABS: ALANINE AMINOTRANSFERASE 132 U/L (12-78); ALBUMIN 2.5 g/dL (3.4-5.0); ANION GAP 7 mmol/L (8-16); ASPARTATE AMINOTRANSFERASE 98 U/L (15-37); BILIRUBIN,TOTAL 0.4 mg/dL (0.1-1.0); CALCIUM, TOTAL 8.8 mg/dL (8.8-10.5); CARBON DIOXIDE 26 mmol/L (22-29); CHLORIDE 115 mmol/L (98-107); GLOMERULAR FILTR. RATE CALC > 60 mL/min (>60); SODIUM SERUM 148 mmol/L (136-145); TOTAL PROTEIN, SERUM 6.1 g/dL (6.4-8.2); UREA NITROGEN, BLOOD 30 mg/dL (7-18)
[2016-03-25] MEDS: LORazepam 2 MG/ML VIAL IVP PRN ×2 (06:50→16:14)
[2016-03-25 07:31] VITALS: BP 120/66
[2016-03-25] MEDS: BROMOCRIPTINE MESYLATE 2.5 MG TABLET NG SCH ×3 (08:58→19:58)
[2016-03-25] MEDS: FAMOTIDINE 20 MG TABLET NG SCH (08:58)
[2016-03-25] MEDS: CHOLECALCIFEROL (VIT D3) 1,000 UNITS TABLET NG SCH ×2 (08:59→19:58)
[2016-03-25] MEDS: ASPIRIN 81 MG CHEWABLE TABLET NG SCH (08:59)
[2016-03-25] MEDS: AmLODIPine BESYLATE 5 MG TABLET NG SCH (08:59)
[2016-03-25] MEDS: METOPROLOL TARTRATE 25 MG TABLET NG SCH ×2 (08:59→19:58)
[2016-03-25] MEDS: OXYGEN THERAPY IH SCH ×2 (09:03→19:58)
[2016-03-25] MEDS: NYSTATIN 15 GM POWDER BOTTLE TP SCH ×2 (09:03→19:58)
[2016-03-25] MEDS: ACETAMINOPHEN 325 MG TABLET NG PRN ×2 (09:06→23:02)
[2016-03-25] MEDS: IPRATROPIUM BROMIDE 0.5 MG/2.5 ML NEB SOLUTION NEB SCH ×4 (09:09→19:42)
[2016-03-25] MEDS: ALBUTEROL SULFATE 2.5 MG/0.5 ML NEB SOLUTION NEB SCH ×4 (09:09→19:42)
[2016-03-25 10:47] LABS: WEST NILE VIRUS IGG Negative (Negative)
[2016-03-25 11:26] VITALS: BP 123/51
[2016-03-25 12:07] LABS: WEST NILE VIRUS IGM CSF Negative (Negative)
[2016-03-25 12:07] LABS: WEST NILE VIRUS IGM Negative (Negative)
[2016-03-25 14:21] LABS: AFB SPECIMEN PROCESSING Concentration
[2016-03-25 15:47] VITALS: BP 128/81
[2016-03-25] MEDS: SODIUM CHLORIDE 0.45% 1,000 ML IV SCH (16:20)
[2016-03-25] MEDS: DOCUSATE SODIUM 250 MG CAPSULE NG SCH (19:58)
[2016-03-25 20:01] VITALS: BP 106/63
[2016-03-26 00:35] VITALS: BP 135/75
[2016-03-26] MEDS: AMPICILLIN SODIUM 1 GM/NS 50 ML IV SCH ×4 (01:19→18:41)
[2016-03-26] MEDS: SODIUM CHLORIDE 0.45% 1,000 ML IV SCH ×3 (01:19→22:13)
[2016-03-26 04:15] VITALS: BP 143/68
[2016-03-26] MEDS: ACETAMINOPHEN 325 MG TABLET NG PRN ×2 (04:44→18:12)
[2016-03-26] MEDS: LORazepam 2 MG/ML VIAL IVP PRN ×2 (04:44→12:33)
[2016-03-26 07:46] VITALS: BP 123/49
[2016-03-26] MEDS: FAMOTIDINE 20 MG TABLET NG SCH (08:57)
[2016-03-26] MEDS: METOPROLOL TARTRATE 25 MG TABLET NG SCH ×2 (08:57→20:11)
[2016-03-26] MEDS: CHOLECALCIFEROL (VIT D3) 1,000 UNITS TABLET NG SCH ×2 (08:57→20:11)
[2016-03-26] MEDS: AmLODIPine BESYLATE 5 MG TABLET NG SCH (08:57)
[2016-03-26] MEDS: HEPARIN SODIUM,PORCINE 5,000 UNITS/ML VIAL SQ SCH ×3 (08:57→23:43)
[2016-03-26] MEDS: ASPIRIN 81 MG CHEWABLE TABLET NG SCH (08:57)
[2016-03-26] MEDS: OXYGEN THERAPY IH SCH ×2 (08:57→20:11)
[2016-03-26] MEDS: BROMOCRIPTINE MESYLATE 2.5 MG TABLET NG SCH ×3 (08:57→20:11)
[2016-03-26] MEDS: NYSTATIN 15 GM POWDER BOTTLE TP SCH ×2 (08:58→20:12)
[2016-03-26] MEDS: ALBUTEROL SULFATE 2.5 MG/0.5 ML NEB SOLUTION NEB SCH ×4 (09:00→19:20)
[2016-03-26] MEDS: IPRATROPIUM BROMIDE 0.5 MG/2.5 ML NEB SOLUTION NEB SCH ×4 (09:00→19:20)
[2016-03-26 09:24] LABS: ANION GAP 8 mmol/L (8-16); CALCIUM, TOTAL 8.5 mg/dL (8.8-10.5); CARBON DIOXIDE 26 mmol/L (22-29); CHLORIDE 109 mmol/L (98-107); CREATININE 0.75 mg/dL (0.60-1.30); GLOMERULAR FILTR. RATE CALC > 60 mL/min (>60); PHOSPHORUS 3.6 mg/dL (2.5-4.9); POTASSIUM 4.2 mmol/L (3.5-5.1); SODIUM SERUM 143 mmol/L (136-145); UREA NITROGEN, BLOOD 24 mg/dL (7-18)
[2016-03-26] MEDS: ACYCLOVIR IV SCH ×3 (10:46→23:43)
[2016-03-26] MEDS: DEXTROSE 5% IV SCH ×3 (10:46→23:43)
[2016-03-26] MEDS: WATER IV SCH ×3 (10:46→23:43)
[2016-03-26 11:27] VITALS: BP 109/52
[2016-03-26 15:57] VITALS: BP 137/65
[2016-03-26 19:35] VITALS: BP 120/59
[2016-03-26] MEDS: DOCUSATE SODIUM 250 MG CAPSULE NG SCH (20:11)
[2016-03-26 20:31] LABS: BASOPHILS % (AUTO) 0.8 % (0.0-2.0); EOSINOPHILS % (AUTO) 1.3 % (1.0-6.0); HEMATOCRIT 39.1 % (41-53); HEMOGLOBIN 12.7 g/dL (13.5-17.5); LYMPHOCYTES # (AUTO) 2.9 K/uL (1.0-4.8); LYMPHOCYTES % (AUTO) 18.7 % (22.0-44.0); MEAN CORPUSCULAR HEMOGLOBIN 30.8 pg (26.0-34.0); MEAN CORPUSCULAR HGB CONC 32.6 G/dL (31.0-37.0); MEAN CORPUSCULAR VOLUME 95 fL (80-100); MONOCYTES # (AUTO) 0.8 K/uL (0.1-1.0); NEUTROPHILS # (AUTO) 11.4 K/uL (1.8-7.7); NEUTROPHILS % (AUTO) 74.2 % (40.0-70.0); PLATELET COUNT (AUTO) 321 K/uL (150-450); RED BLOOD CELL COUNT(AUTO) 4.13 MIL/uL (4.50-5.90); RED CELL DISTRIBUTION WIDTH 15.8 % (11.5-14.5); WHITE BLOOD COUNT (AUTO) 15.4 K/uL (4.5-11.0)
[2016-03-27 00:07] VITALS: BP 141/71
[2016-03-27] MEDS: AMPICILLIN SODIUM 1 GM/NS 50 ML IV SCH ×4 (01:13→19:16)
[2016-03-27 04:30] VITALS: BP 130/78
[2016-03-27 07:29] LABS: ANION GAP 9 mmol/L (8-16); CALCIUM, TOTAL 8.4 mg/dL (8.8-10.5); CARBON DIOXIDE 25 mmol/L (22-29); CHLORIDE 105 mmol/L (98-107); CREATININE 0.72 mg/dL (0.60-1.30); GLOMERULAR FILTR. RATE CALC > 60 mL/min (>60); PHOSPHORUS 3.1 mg/dL (2.5-4.9); POTASSIUM 3.9 mmol/L (3.5-5.1); SODIUM SERUM 139 mmol/L (136-145); UREA NITROGEN, BLOOD 19 mg/dL (7-18)
[2016-03-27 07:43] VITALS: BP 120/76
[2016-03-27] MEDS: ACETAMINOPHEN 325 MG TABLET NG PRN (07:54)
[2016-03-27] MEDS: AmLODIPine BESYLATE 5 MG TABLET NG SCH (07:54)
[2016-03-27] MEDS: METOPROLOL TARTRATE 25 MG TABLET NG SCH ×2 (07:54→21:16)
[2016-03-27] MEDS: CHOLECALCIFEROL (VIT D3) 1,000 UNITS TABLET NG SCH ×2 (07:54→21:16)
[2016-03-27] MEDS: FAMOTIDINE 20 MG TABLET NG SCH (07:54)
[2016-03-27] MEDS: ASPIRIN 81 MG CHEWABLE TABLET NG SCH (07:54)
[2016-03-27] MEDS: BROMOCRIPTINE MESYLATE 2.5 MG TABLET NG SCH ×3 (07:55→21:16)
[2016-03-27] MEDS: HEPARIN SODIUM,PORCINE 5,000 UNITS/ML VIAL SQ SCH ×3 (07:55→23:21)
[2016-03-27] MEDS: LORazepam 2 MG/ML VIAL IVP PRN ×2 (07:55→13:25)
[2016-03-27] MEDS: WATER IV SCH ×3 (07:56→23:22)
[2016-03-27] MEDS: ACYCLOVIR IV SCH ×3 (07:56→23:22)
[2016-03-27] MEDS: DEXTROSE 5% IV SCH ×3 (07:56→23:22)
[2016-03-27] MEDS: SODIUM CHLORIDE 0.45% 1,000 ML IV SCH ×2 (08:19→10:49)
[2016-03-27] MEDS: OXYGEN THERAPY IH SCH ×2 (08:19→21:17)
[2016-03-27] MEDS: IPRATROPIUM BROMIDE 0.5 MG/2.5 ML NEB SOLUTION NEB SCH ×4 (09:55→19:54)
[2016-03-27] MEDS: ALBUTEROL SULFATE 2.5 MG/0.5 ML NEB SOLUTION NEB SCH ×4 (09:55→19:54)
[2016-03-27] MEDS: NYSTATIN 15 GM POWDER BOTTLE TP SCH ×2 (10:49→21:19)
[2016-03-27 11:04] VITALS: BP 147/55
[2016-03-27 16:15] VITALS: BP 114/60
[2016-03-27 19:28] VITALS: BP 128/76
[2016-03-27] MEDS: DOCUSATE SODIUM 250 MG CAPSULE NG SCH (21:16)
[2016-03-28] VITALS (7 sets, daily range): BP systolic 98–137; BP diastolic 58–74
[2016-03-28] MEDS: AMPICILLIN SODIUM 1 GM/NS 50 ML IV SCH ×4 (01:19→17:47)
[2016-03-28] MEDS: SODIUM CHLORIDE 0.45% 1,000 ML IV SCH (05:05)
[2016-03-28] MEDS: IPRATROPIUM BROMIDE 0.5 MG/2.5 ML NEB SOLUTION NEB SCH ×4 (08:00→20:41)
[2016-03-28] MEDS: ALBUTEROL SULFATE 2.5 MG/0.5 ML NEB SOLUTION NEB SCH ×4 (08:00→20:41)
[2016-03-28] MEDS: HEPARIN SODIUM,PORCINE 5,000 UNITS/ML VIAL SQ SCH ×3 (08:41→23:47)
[2016-03-28] MEDS: DEXTROSE 5% IV SCH ×3 (08:41→23:46)
[2016-03-28] MEDS: WATER IV SCH ×3 (08:41→23:46)
[2016-03-28] MEDS: ACYCLOVIR IV SCH ×3 (08:41→23:46)
[2016-03-28] MEDS: AmLODIPine BESYLATE 5 MG TABLET NG SCH (08:48)
[2016-03-28] MEDS: ASPIRIN 81 MG CHEWABLE TABLET NG SCH (08:48)
[2016-03-28] MEDS: METOPROLOL TARTRATE 25 MG TABLET NG SCH ×2 (08:48→21:20)
[2016-03-28] MEDS: FAMOTIDINE 20 MG TABLET NG SCH (08:48)
[2016-03-28] MEDS: CHOLECALCIFEROL (VIT D3) 1,000 UNITS TABLET NG SCH ×2 (08:48→21:20)
[2016-03-28] MEDS: BROMOCRIPTINE MESYLATE 2.5 MG TABLET NG SCH ×3 (08:48→21:20)
[2016-03-28] MEDS: NYSTATIN 15 GM POWDER BOTTLE TP SCH ×2 (08:52→21:21)
[2016-03-28] MEDS: ACETAMINOPHEN 325 MG TABLET NG PRN ×2 (08:52→16:22)
[2016-03-28] MEDS: OXYGEN THERAPY IH SCH ×2 (08:53→20:41)
[2016-03-28] MEDS: DOCUSATE SODIUM 250 MG CAPSULE NG SCH (21:20)
[2016-03-29] MEDS: AMPICILLIN SODIUM 1 GM/NS 50 ML IV SCH ×4 (01:38→20:15)
[2016-03-29] MEDS: SODIUM CHLORIDE 0.45% 1,000 ML IV SCH ×2 (05:01→20:48)
[2016-03-29 05:20] VITALS: BP 135/80
[2016-03-29 06:43] LABS: BASOPHILS % (AUTO) 0.4 % (0.0-2.0); EOSINOPHILS % (AUTO) 2.1 % (1.0-6.0); HEMATOCRIT 36.8 % (41-53); HEMOGLOBIN 11.9 g/dL (13.5-17.5); LYMPHOCYTES # (AUTO) 2.3 K/uL (1.0-4.8); LYMPHOCYTES % (AUTO) 22.2 % (22.0-44.0); MEAN CORPUSCULAR HEMOGLOBIN 30.8 pg (26.0-34.0); MEAN CORPUSCULAR HGB CONC 32.4 G/dL (31.0-37.0); MEAN CORPUSCULAR VOLUME 95 fL (80-100); MONOCYTES # (AUTO) 0.8 K/uL (0.1-1.0); MONOCYTES % (AUTO) 7.5 % (2.0-9.0); NEUTROPHILS # (AUTO) 7.2 K/uL (1.8-7.7); NEUTROPHILS % (AUTO) 67.8 % (40.0-70.0); PLATELET COUNT (AUTO) 303 K/uL (150-450); RED BLOOD CELL COUNT(AUTO) 3.87 MIL/uL (4.50-5.90); RED CELL DISTRIBUTION WIDTH 15.7 % (11.5-14.5)
[2016-03-29 07:13] LABS: ALANINE AMINOTRANSFERASE 124 U/L (12-78); ALBUMIN 2.5 g/dL (3.4-5.0); ANION GAP 7 mmol/L (8-16); ASPARTATE AMINOTRANSFERASE 127 U/L (15-37); BILIRUBIN,TOTAL 0.4 mg/dL (0.1-1.0); CALCIUM, TOTAL 9.3 mg/dL (8.8-10.5); CARBON DIOXIDE 27 mmol/L (22-29); CHLORIDE 105 mmol/L (98-107); POTASSIUM 4.5 mmol/L (3.5-5.1); SODIUM SERUM 139 mmol/L (136-145); TOTAL PROTEIN, SERUM 6.8 g/dL (6.4-8.2); UREA NITROGEN, BLOOD 15 mg/dL (7-18)
[2016-03-29 07:25] LABS: CREATININE 0.64 mg/dL (0.60-1.30); GLOMERULAR FILTR. RATE CALC > 60 mL/min (>60)
[2016-03-29 07:27] LABS: WHITE BLOOD COUNT (AUTO) 12.9 K/uL (4.5-11.0)
[2016-03-29 07:31] VITALS: BP 127/74
[2016-03-29] MEDS: OXYGEN THERAPY IH SCH ×2 (07:31→20:15)
[2016-03-29] MEDS: HEPARIN SODIUM,PORCINE 5,000 UNITS/ML VIAL SQ SCH ×2 (08:00→16:10)
[2016-03-29] MEDS: ASPIRIN 81 MG CHEWABLE TABLET NG SCH (08:01)
[2016-03-29] MEDS: FAMOTIDINE 20 MG TABLET NG SCH (08:01)
[2016-03-29] MEDS: METOPROLOL TARTRATE 25 MG TABLET NG SCH ×2 (08:01→20:15)
[2016-03-29] MEDS: BROMOCRIPTINE MESYLATE 2.5 MG TABLET NG SCH ×3 (08:01→20:16)
[2016-03-29] MEDS: AmLODIPine BESYLATE 5 MG TABLET NG SCH (08:01)
[2016-03-29] MEDS: CHOLECALCIFEROL (VIT D3) 1,000 UNITS TABLET NG SCH ×2 (08:01→20:16)
[2016-03-29] MEDS: NYSTATIN 15 GM POWDER BOTTLE TP SCH ×2 (08:02→20:16)
[2016-03-29] MEDS: WATER IV SCH ×2 (08:17→16:10)
[2016-03-29] MEDS: DEXTROSE 5% IV SCH ×2 (08:17→16:10)
[2016-03-29] MEDS: ACYCLOVIR IV SCH ×2 (08:17→16:10)
[2016-03-29] MEDS: ALBUTEROL SULFATE 2.5 MG/0.5 ML NEB SOLUTION NEB SCH ×4 (09:44→21:19)
[2016-03-29] MEDS: IPRATROPIUM BROMIDE 0.5 MG/2.5 ML NEB SOLUTION NEB SCH ×4 (09:45→21:19)
[2016-03-29 11:16] VITALS: BP 121/71
[2016-03-29 15:32] VITALS: BP 121/60
[2016-03-29 19:44] VITALS: BP 126/68
[2016-03-29] MEDS: DOCUSATE SODIUM 250 MG CAPSULE NG SCH (20:15)
[2016-03-29 23:31] VITALS: BP 148/77
[2016-03-30] MEDS: HEPARIN SODIUM,PORCINE 5,000 UNITS/ML VIAL SQ SCH ×3 (00:01→15:59)
[2016-03-30] MEDS: DEXTROSE 5% IV SCH ×3 (00:01→15:59)
[2016-03-30] MEDS: WATER IV SCH ×3 (00:01→15:59)
[2016-03-30] MEDS: ACYCLOVIR IV SCH ×3 (00:01→15:59)
[2016-03-30] MEDS: AMPICILLIN SODIUM 1 GM/NS 50 ML IV SCH ×4 (00:02→20:14)
[2016-03-30 04:14] VITALS: BP 120/61
[2016-03-30] MEDS: OXYGEN THERAPY IH SCH ×2 (07:33→20:14)
[2016-03-30 08:30] VITALS: BP 135/58
[2016-03-30] MEDS: IPRATROPIUM BROMIDE 0.5 MG/2.5 ML NEB SOLUTION NEB SCH ×4 (08:33→19:57)
[2016-03-30] MEDS: ALBUTEROL SULFATE 2.5 MG/0.5 ML NEB SOLUTION NEB SCH ×4 (08:33→19:57)
[2016-03-30] MEDS: ASPIRIN 81 MG CHEWABLE TABLET NG SCH (08:45)
[2016-03-30] MEDS: AmLODIPine BESYLATE 5 MG TABLET NG SCH (08:50)
[2016-03-30] MEDS: NYSTATIN 15 GM POWDER BOTTLE TP SCH ×2 (08:50→20:15)
[2016-03-30] MEDS: CHOLECALCIFEROL (VIT D3) 1,000 UNITS TABLET NG SCH ×2 (08:50→20:14)
[2016-03-30] MEDS: METOPROLOL TARTRATE 25 MG TABLET NG SCH ×2 (08:50→20:14)
[2016-03-30] MEDS: FAMOTIDINE 20 MG TABLET NG SCH (08:50)
[2016-03-30] MEDS: BROMOCRIPTINE MESYLATE 2.5 MG TABLET NG SCH ×3 (08:50→20:14)
[2016-03-30 11:39] VITALS: BP 127/59
[2016-03-30 15:23] VITALS: BP 152/67
[2016-03-30] MEDS: SODIUM CHLORIDE 0.45% 1,000 ML IV SCH (17:38)
[2016-03-30 20:06] VITALS: BP 142/66
[2016-03-30] MEDS: DOCUSATE SODIUM 250 MG CAPSULE NG SCH (20:14)
[2016-03-30 23:10] VITALS: BP 132/91
[2016-03-31] MEDS: WATER IV SCH ×3 (00:04→16:34)
[2016-03-31] MEDS: HEPARIN SODIUM,PORCINE 5,000 UNITS/ML VIAL SQ SCH ×3 (00:04→16:40)
[2016-03-31] MEDS: DEXTROSE 5% IV SCH ×3 (00:04→16:34)
[2016-03-31] MEDS: ACYCLOVIR IV SCH ×3 (00:04→16:34)
[2016-03-31] MEDS: AMPICILLIN SODIUM 1 GM/NS 50 ML IV SCH ×4 (01:00→20:48)
[2016-03-31 04:20] VITALS: BP 154/78
[2016-03-31 08:14] VITALS: BP 172/73
[2016-03-31] MEDS: BROMOCRIPTINE MESYLATE 2.5 MG TABLET NG SCH ×3 (08:14→22:28)
[2016-03-31] MEDS: FAMOTIDINE 20 MG TABLET NG SCH (08:14)
[2016-03-31] MEDS: CHOLECALCIFEROL (VIT D3) 1,000 UNITS TABLET NG SCH ×2 (08:15→22:03)
[2016-03-31] MEDS: AmLODIPine BESYLATE 5 MG TABLET NG SCH (08:15)
[2016-03-31] MEDS: METOPROLOL TARTRATE 25 MG TABLET NG SCH ×2 (08:15→22:03)
[2016-03-31] MEDS: ASPIRIN 81 MG CHEWABLE TABLET NG SCH (08:15)
[2016-03-31] MEDS: OXYGEN THERAPY IH SCH ×2 (08:16→20:49)
[2016-03-31] MEDS: ALBUTEROL SULFATE 2.5 MG/0.5 ML NEB SOLUTION NEB SCH ×4 (08:26→20:02)
[2016-03-31] MEDS: IPRATROPIUM BROMIDE 0.5 MG/2.5 ML NEB SOLUTION NEB SCH ×4 (08:26→20:02)
[2016-03-31 12:11] VITALS: BP 115/62
[2016-03-31 16:09] VITALS: BP 156/70
[2016-03-31] MEDS: NYSTATIN 15 GM POWDER BOTTLE TP SCH ×2 (16:33→22:04)
[2016-03-31] MEDS: SODIUM CHLORIDE 0.45% 1,000 ML IV SCH (16:45)
[2016-03-31 19:29] VITALS: BP 132/58
[2016-03-31] MEDS: DOCUSATE SODIUM 250 MG CAPSULE NG SCH (22:03)
[2016-04-01] VITALS (7 sets, daily range): BP systolic 123–143; BP diastolic 52–81
[2016-04-01] MEDS: ACYCLOVIR IV SCH ×3 (00:20→16:30)
[2016-04-01] MEDS: DEXTROSE 5% IV SCH ×3 (00:20→16:30)
[2016-04-01] MEDS: HEPARIN SODIUM,PORCINE 5,000 UNITS/ML VIAL SQ SCH ×3 (00:20→16:32)
[2016-04-01] MEDS: WATER IV SCH ×3 (00:20→16:30)
[2016-04-01 07:28] LABS: BASOPHILS # (AUTO) 0.03 K/uL (0.00-0.20); BASOPHILS % (AUTO) 0.4 % (0.0-2.0); EOSINOPHILS # (AUTO) 0.23 K/uL (0.00-0.70); HEMATOCRIT 37.6 % (41-53); HEMOGLOBIN 12.2 g/dL (13.5-17.5); LYMPHOCYTES # (AUTO) 1.8 K/uL (1.0-4.8); LYMPHOCYTES % (AUTO) 23.3 % (22.0-44.0); MEAN CORPUSCULAR HEMOGLOBIN 30.7 pg (26.0-34.0); MEAN CORPUSCULAR HGB CONC 32.4 G/dL (31.0-37.0); MEAN CORPUSCULAR VOLUME 95 fL (80-100); MONOCYTES # (AUTO) 0.6 K/uL (0.1-1.0); MONOCYTES % (AUTO) 7.1 % (2.0-9.0); NEUTROPHILS # (AUTO) 5.1 K/uL (1.8-7.7); NEUTROPHILS % (AUTO) 66.2 % (40.0-70.0); PLATELET COUNT (AUTO) 326 K/uL (150-450); RED BLOOD CELL COUNT(AUTO) 3.97 MIL/uL (4.50-5.90); RED CELL DISTRIBUTION WIDTH 17.3 % (11.5-14.5); WHITE BLOOD COUNT (AUTO) 7.7 K/uL (4.5-11.0)
[2016-04-01 07:41] LABS: ALANINE AMINOTRANSFERASE 142 U/L (12-78); ALBUMIN 2.5 g/dL (3.4-5.0); ANION GAP 9 mmol/L (8-16); ASPARTATE AMINOTRANSFERASE 119 U/L (15-37); BILIRUBIN,TOTAL 0.4 mg/dL (0.1-1.0); CALCIUM, TOTAL 8.9 mg/dL (8.8-10.5); CARBON DIOXIDE 27 mmol/L (22-29); CHLORIDE 103 mmol/L (98-107); CREATININE 0.77 mg/dL (0.60-1.30); GLOMERULAR FILTR. RATE CALC > 60 mL/min (>60); POTASSIUM 3.7 mmol/L (3.5-5.1); SODIUM SERUM 139 mmol/L (136-145); TOTAL PROTEIN, SERUM 6.4 g/dL (6.4-8.2); UREA NITROGEN, BLOOD 13 mg/dL (7-18)
[2016-04-01] MEDS: OXYGEN THERAPY IH SCH ×2 (07:43→20:00)
[2016-04-01] MEDS: IPRATROPIUM BROMIDE 0.5 MG/2.5 ML NEB SOLUTION NEB SCH ×4 (08:01→20:28)
[2016-04-01] MEDS: ALBUTEROL SULFATE 2.5 MG/0.5 ML NEB SOLUTION NEB SCH ×4 (08:01→20:29)
[2016-04-01] MEDS: FAMOTIDINE 20 MG TABLET NG SCH (08:27)
[2016-04-01] MEDS: CHOLECALCIFEROL (VIT D3) 1,000 UNITS TABLET NG SCH ×2 (08:27→21:07)
[2016-04-01] MEDS: METOPROLOL TARTRATE 25 MG TABLET NG SCH ×2 (08:27→21:07)
[2016-04-01] MEDS: ASPIRIN 81 MG CHEWABLE TABLET NG SCH (08:27)
[2016-04-01] MEDS: AmLODIPine BESYLATE 5 MG TABLET NG SCH (08:27)
[2016-04-01] MEDS: BROMOCRIPTINE MESYLATE 2.5 MG TABLET NG SCH ×3 (08:28→21:07)
[2016-04-01] MEDS: NYSTATIN 15 GM POWDER BOTTLE TP SCH ×2 (08:29→21:08)
[2016-04-01 12:39] LABS: RBC MORPHOLOGY COMMENT ABNORMAL RBC MORPH
[2016-04-01] MEDS: SODIUM CHLORIDE 0.45% 1,000 ML IV SCH (16:30)
[2016-04-01] MEDS: DOCUSATE SODIUM 250 MG CAPSULE NG SCH (21:07)
[2016-04-02] MEDS: WATER IV SCH ×4 (00:52→23:34)
[2016-04-02] MEDS: HEPARIN SODIUM,PORCINE 5,000 UNITS/ML VIAL SQ SCH ×4 (00:52→23:34)
[2016-04-02] MEDS: ACYCLOVIR IV SCH ×4 (00:52→23:34)
[2016-04-02] MEDS: DEXTROSE 5% IV SCH ×4 (00:52→23:34)
[2016-04-02 04:42] VITALS: BP 138/85
[2016-04-02] MEDS: SODIUM CHLORIDE 0.45% 1,000 ML IV SCH ×2 (05:53→23:34)
[2016-04-02 07:55] VITALS: BP 133/86
[2016-04-02] MEDS: AmLODIPine BESYLATE 5 MG TABLET NG SCH (08:04)
[2016-04-02] MEDS: FAMOTIDINE 20 MG TABLET NG SCH (08:04)
[2016-04-02] MEDS: ASPIRIN 81 MG CHEWABLE TABLET NG SCH (08:04)
[2016-04-02] MEDS: METOPROLOL TARTRATE 25 MG TABLET NG SCH ×2 (08:04→20:00)
[2016-04-02] MEDS: CHOLECALCIFEROL (VIT D3) 1,000 UNITS TABLET NG SCH ×2 (08:04→20:00)
[2016-04-02] MEDS: NYSTATIN 15 GM POWDER BOTTLE TP SCH ×2 (08:05→20:01)
[2016-04-02] MEDS: BROMOCRIPTINE MESYLATE 2.5 MG TABLET NG SCH ×3 (08:05→20:00)
[2016-04-02] MEDS: ALBUTEROL SULFATE 2.5 MG/0.5 ML NEB SOLUTION NEB SCH ×4 (08:41→20:27)
[2016-04-02] MEDS: IPRATROPIUM BROMIDE 0.5 MG/2.5 ML NEB SOLUTION NEB SCH ×4 (08:41→20:27)
[2016-04-02 11:45] VITALS: BP 103/58
[2016-04-02 15:57] VITALS: BP 134/74
[2016-04-02] MEDS: DOCUSATE SODIUM 250 MG CAPSULE NG SCH (20:00)
[2016-04-02 20:10] VITALS: BP 119/65
[2016-04-03] VITALS (7 sets, daily range): BP systolic 119–151; BP diastolic 55–83
[2016-04-03] MEDS: IPRATROPIUM BROMIDE 0.5 MG/2.5 ML NEB SOLUTION NEB SCH ×4 (07:43→20:26)
[2016-04-03] MEDS: ALBUTEROL SULFATE 2.5 MG/0.5 ML NEB SOLUTION NEB SCH ×4 (07:43→20:26)
[2016-04-03] MEDS: HEPARIN SODIUM,PORCINE 5,000 UNITS/ML VIAL SQ SCH ×2 (07:50→16:58)
[2016-04-03] MEDS: DEXTROSE 5% IV SCH ×2 (07:50→16:58)
[2016-04-03] MEDS: WATER IV SCH ×2 (07:50→16:58)
[2016-04-03] MEDS: ACYCLOVIR IV SCH ×2 (07:50→16:58)
[2016-04-03] MEDS: CHOLECALCIFEROL (VIT D3) 1,000 UNITS TABLET NG SCH ×2 (08:04→20:27)
[2016-04-03] MEDS: FAMOTIDINE 20 MG TABLET NG SCH (08:04)
[2016-04-03] MEDS: AmLODIPine BESYLATE 5 MG TABLET NG SCH (08:04)
[2016-04-03] MEDS: METOPROLOL TARTRATE 25 MG TABLET NG SCH ×2 (08:04→20:27)
[2016-04-03] MEDS: ASPIRIN 81 MG CHEWABLE TABLET NG SCH (08:05)
[2016-04-03] MEDS: BROMOCRIPTINE MESYLATE 2.5 MG TABLET NG SCH (08:05)
[2016-04-03] MEDS: NYSTATIN 15 GM POWDER BOTTLE TP SCH (09:06)
[2016-04-03] MEDS: DOCUSATE SODIUM 250 MG CAPSULE NG SCH (20:27)
[2016-04-03] MEDS: SODIUM CHLORIDE 0.45% 1,000 ML IV SCH (22:44)
[2016-04-04] MEDS: ACYCLOVIR IV SCH ×4 (00:34→23:46)
[2016-04-04] MEDS: WATER IV SCH ×4 (00:34→23:46)
[2016-04-04] MEDS: DEXTROSE 5% IV SCH ×4 (00:34→23:46)
[2016-04-04] MEDS: NYSTATIN 15 GM POWDER BOTTLE TP SCH ×3 (00:35→21:05)
[2016-04-04] MEDS: HEPARIN SODIUM,PORCINE 5,000 UNITS/ML VIAL SQ SCH ×4 (02:04→23:46)
[2016-04-04 04:11] VITALS: BP 167/81
[2016-04-04 06:40] LABS: BASOPHILS % (AUTO) 0.4 % (0.0-2.0); EOSINOPHILS % (AUTO) 2.3 % (1.0-6.0); HEMATOCRIT 41.4 % (41-53); HEMOGLOBIN 13.1 g/dL (13.5-17.5); LYMPHOCYTES # (AUTO) 2.9 K/uL (1.0-4.8); LYMPHOCYTES % (AUTO) 31.6 % (22.0-44.0); MEAN CORPUSCULAR HEMOGLOBIN 30.5 pg (26.0-34.0); MEAN CORPUSCULAR HGB CONC 31.8 G/dL (31.0-37.0); MEAN CORPUSCULAR VOLUME 96 fL (80-100); MONOCYTES # (AUTO) 0.8 K/uL (0.1-1.0); NEUTROPHILS # (AUTO) 5.2 K/uL (1.8-7.7); NEUTROPHILS % (AUTO) 56.7 % (40.0-70.0); PLATELET COUNT (AUTO) 382 K/uL (150-450); RED BLOOD CELL COUNT(AUTO) 4.32 MIL/uL (4.50-5.90); RED CELL DISTRIBUTION WIDTH 17.3 % (11.5-14.5); WHITE BLOOD COUNT (AUTO) 9.2 K/uL (4.5-11.0)
[2016-04-04] MEDS: ALBUTEROL SULFATE 2.5 MG/0.5 ML NEB SOLUTION NEB SCH ×4 (07:25→19:59)
[2016-04-04] MEDS: IPRATROPIUM BROMIDE 0.5 MG/2.5 ML NEB SOLUTION NEB SCH ×4 (07:25→19:59)
[2016-04-04 07:51] VITALS: BP 138/76
[2016-04-04 08:39] LABS: ALANINE AMINOTRANSFERASE 163 U/L (12-78); ALBUMIN 2.9 g/dL (3.4-5.0); ANION GAP 12 mmol/L (8-16); ASPARTATE AMINOTRANSFERASE 144 U/L (15-37); BILIRUBIN,TOTAL 0.6 mg/dL (0.1-1.0); CALCIUM, TOTAL 9.5 mg/dL (8.8-10.5); CARBON DIOXIDE 25 mmol/L (22-29); CHLORIDE 100 mmol/L (98-107); CREATININE 0.77 mg/dL (0.60-1.30); GLOMERULAR FILTR. RATE CALC > 60 mL/min (>60); SODIUM SERUM 137 mmol/L (136-145); TOTAL PROTEIN, SERUM 7.2 g/dL (6.4-8.2); UREA NITROGEN, BLOOD 14 mg/dL (7-18)
[2016-04-04 09:40] LABS: RBC MORPHOLOGY COMMENT ABNORMAL RBC MORPH
[2016-04-04] MEDS: METOPROLOL TARTRATE 25 MG TABLET PO SCH ×2 (09:59→20:54)
[2016-04-04] MEDS: AmLODIPine BESYLATE 5 MG TABLET PO SCH (09:59)
[2016-04-04] MEDS: ASPIRIN 81 MG CHEWABLE TABLET PO SCH (09:59)
[2016-04-04] MEDS: CHOLECALCIFEROL (VIT D3) 1,000 UNITS TABLET NG SCH ×2 (10:00→20:54)
[2016-04-04] MEDS: FAMOTIDINE 20 MG TABLET PO SCH (10:00)
[2016-04-04 11:11] VITALS: BP 134/77
[2016-04-04 16:18] VITALS: BP 141/77
[2016-04-04] MEDS: SODIUM CHLORIDE 0.45% 1,000 ML IV SCH (18:01)
[2016-04-04 20:08] VITALS: BP 150/65
[2016-04-04] MEDS: DOCUSATE SODIUM 250 MG CAPSULE PO SCH (20:54)
[2016-04-04 23:41] VITALS: BP 143/72
[2016-04-05 04:40] VITALS: BP 142/70
[2016-04-05 08:04] VITALS: BP 127/70
[2016-04-05] MEDS: ALBUTEROL SULFATE 2.5 MG/0.5 ML NEB SOLUTION NEB SCH ×4 (08:39→19:59)
[2016-04-05] MEDS: IPRATROPIUM BROMIDE 0.5 MG/2.5 ML NEB SOLUTION NEB SCH ×4 (08:39→19:59)
[2016-04-05] MEDS: WATER IV SCH ×2 (08:40→17:24)
[2016-04-05] MEDS: ACYCLOVIR IV SCH ×2 (08:40→17:24)
[2016-04-05] MEDS: DEXTROSE 5% IV SCH ×2 (08:40→17:24)
[2016-04-05] MEDS: HEPARIN SODIUM,PORCINE 5,000 UNITS/ML VIAL SQ SCH (08:43)
[2016-04-05] MEDS: AmLODIPine BESYLATE 5 MG TABLET PO SCH (10:07)
[2016-04-05] MEDS: CHOLECALCIFEROL (VIT D3) 1,000 UNITS TABLET NG SCH ×2 (10:07→20:34)
[2016-04-05] MEDS: FAMOTIDINE 20 MG TABLET PO SCH (10:07)
[2016-04-05] MEDS: METOPROLOL TARTRATE 25 MG TABLET PO SCH ×2 (10:07→20:34)
[2016-04-05] MEDS: ASPIRIN 81 MG CHEWABLE TABLET PO SCH (10:07)
[2016-04-05] MEDS: NYSTATIN 15 GM POWDER BOTTLE TP SCH ×2 (10:08→20:33)
[2016-04-05 11:05] VITALS: BP 132/79
[2016-04-05 11:37] LABS: INR 1.1 (0.9-1.1); PROTHROMBIN TIME 11.3 SEC (9.4-11.6)
[2016-04-05] MEDS ORDERED: PROPOFOL 1% 20 ML VIAL IVP ONE (12:00)
[2016-04-05] MEDS: SODIUM CHLORIDE 0.45% 1,000 ML IV SCH (12:02)
[2016-04-05 15:12] VITALS: BP 135/72
[2016-04-05 20:03] VITALS: BP 139/96
[2016-04-05] MEDS: DOCUSATE SODIUM 250 MG CAPSULE PO SCH (20:34)
[2016-04-05 23:22] VITALS: BP 154/89
[2016-04-06] MEDS: HEPARIN SODIUM,PORCINE 5,000 UNITS/ML VIAL SQ SCH ×4 (00:15→23:55)
[2016-04-06] MEDS: ACYCLOVIR IV SCH ×4 (00:17→23:50)
[2016-04-06] MEDS: WATER IV SCH ×4 (00:17→23:50)
[2016-04-06] MEDS: DEXTROSE 5% IV SCH ×4 (00:17→23:50)
[2016-04-06 04:04] VITALS: BP 147/66
[2016-04-06 07:01] LABS: ALANINE AMINOTRANSFERASE 213 U/L (12-78); ALBUMIN 3.1 g/dL (3.4-5.0); ANION GAP 11 mmol/L (8-16); ASPARTATE AMINOTRANSFERASE 190 U/L (15-37); BILIRUBIN,TOTAL 0.9 mg/dL (0.1-1.0); CALCIUM, TOTAL 9.7 mg/dL (8.8-10.5); CARBON DIOXIDE 26 mmol/L (22-29); CHLORIDE 102 mmol/L (98-107); CREATININE 0.84 mg/dL (0.60-1.30); GLOMERULAR FILTR. RATE CALC > 60 mL/min (>60); POTASSIUM 4.1 mmol/L (3.5-5.1); SODIUM SERUM 139 mmol/L (136-145); TOTAL PROTEIN, SERUM 7.5 g/dL (6.4-8.2); UREA NITROGEN, BLOOD 16 mg/dL (7-18)
[2016-04-06 07:15] VITALS: BP 139/73
[2016-04-06] MEDS: ALBUTEROL SULFATE 2.5 MG/0.5 ML NEB SOLUTION NEB SCH ×4 (09:12→20:40)
[2016-04-06] MEDS: IPRATROPIUM BROMIDE 0.5 MG/2.5 ML NEB SOLUTION NEB SCH ×4 (09:12→20:40)
[2016-04-06 12:13] VITALS: BP 160/76
[2016-04-06] MEDS ORDERED: SODIUM CHLORIDE 0.9% 1,000 ML IV ONE (12:14)
[2016-04-06] MEDS: SODIUM CHLORIDE 0.45% 1,000 ML IV SCH (12:24)
[2016-04-06] MEDS: CHOLECALCIFEROL (VIT D3) 1,000 UNITS TABLET NG SCH ×2 (12:24→21:50)
[2016-04-06] MEDS: NYSTATIN 15 GM POWDER BOTTLE TP SCH ×2 (12:25→21:51)
[2016-04-06] MEDS: FAMOTIDINE 20 MG TABLET PO SCH (12:25)
[2016-04-06] MEDS: AmLODIPine BESYLATE 5 MG TABLET PO SCH (12:25)
[2016-04-06] MEDS: METOPROLOL TARTRATE 25 MG TABLET PO SCH ×2 (12:25→21:52)
[2016-04-06 15:19] VITALS: BP 164/93
[2016-04-06 19:59] VITALS: BP 159/88
[2016-04-06] MEDS: DOCUSATE SODIUM 250 MG CAPSULE PO SCH (21:50)
[2016-04-06 23:36] VITALS: BP 158/90
[2016-04-07] MEDS: SODIUM CHLORIDE 0.45% 1,000 ML IV SCH (04:54)
[2016-04-07 05:19] VITALS: BP 162/74
[2016-04-07 07:27] VITALS: BP 145/79
[2016-04-07] MEDS: IPRATROPIUM BROMIDE 0.5 MG/2.5 ML NEB SOLUTION NEB SCH ×4 (08:09→19:54)
[2016-04-07] MEDS: ALBUTEROL SULFATE 2.5 MG/0.5 ML NEB SOLUTION NEB SCH ×4 (08:09→19:54)
[2016-04-07] MEDS: DEXTROSE 5% IV SCH ×3 (09:50→23:31)
[2016-04-07] MEDS: WATER IV SCH ×3 (09:50→23:31)
[2016-04-07] MEDS: ACYCLOVIR IV SCH ×3 (09:50→23:31)
[2016-04-07] MEDS: AmLODIPine BESYLATE 5 MG TABLET PO SCH (09:53)
[2016-04-07] MEDS: HEPARIN SODIUM,PORCINE 5,000 UNITS/ML VIAL SQ SCH ×3 (09:53→23:32)
[2016-04-07] MEDS: METOPROLOL TARTRATE 25 MG TABLET PO SCH ×2 (09:53→20:19)
[2016-04-07] MEDS: CHOLECALCIFEROL (VIT D3) 1,000 UNITS TABLET NG SCH ×2 (09:53→20:19)
[2016-04-07] MEDS: FAMOTIDINE 20 MG TABLET PO SCH (09:53)
[2016-04-07] MEDS: NYSTATIN 15 GM POWDER BOTTLE TP SCH ×2 (09:55→20:19)
[2016-04-07] MEDS: BISACODYL 10 MG RECTAL RECTAL SUPPOSITORY PR PRN (09:58)
[2016-04-07 10:52] VITALS: BP 141/63
[2016-04-07 12:07] LABS: GLUCOSE,POINT OF CARE 121 MG/DL (70-110)
[2016-04-07 15:54] VITALS: BP 164/84
[2016-04-07 19:31] VITALS: BP 157/87
[2016-04-07] MEDS: DOCUSATE SODIUM 250 MG CAPSULE PO SCH (20:19)
[2016-04-08] VITALS (7 sets, daily range): BP systolic 126–159; BP diastolic 61–86
[2016-04-08] MEDS: SODIUM CHLORIDE 0.45% 1,000 ML IV SCH ×2 (01:15→20:04)
[2016-04-08] MEDS: ACETAMINOPHEN 325 MG TABLET PO PRN ×3 (02:59→23:23)
[2016-04-08 07:08] LABS: BASOPHILS # (AUTO) 0.04 K/uL (0.00-0.20); BASOPHILS % (AUTO) 0.4 % (0.0-2.0); EOSINOPHILS # (AUTO) 0.06 K/uL (0.00-0.70); EOSINOPHILS % (AUTO) 0.67 % (1.0-6.0); HEMOGLOBIN 13.7 g/dL (13.5-17.5); LYMPHOCYTES # (AUTO) 1.6 K/uL (1.0-4.8); LYMPHOCYTES % (AUTO) 18.5 % (22.0-44.0); MEAN CORPUSCULAR HEMOGLOBIN 30.9 pg (26.0-34.0); MEAN CORPUSCULAR HGB CONC 31.8 G/dL (31.0-37.0); MEAN CORPUSCULAR VOLUME 97 fL (80-100); MONOCYTES # (AUTO) 0.9 K/uL (0.1-1.0); MONOCYTES % (AUTO) 10.6 % (2.0-9.0); NEUTROPHILS # (AUTO) 5.8 K/uL (1.8-7.7); NEUTROPHILS % (AUTO) 69.7 % (40.0-70.0); PLATELET COUNT (AUTO) 369 K/uL (150-450); RED BLOOD CELL COUNT(AUTO) 4.43 MIL/uL (4.50-5.90); RED CELL DISTRIBUTION WIDTH 19.8 % (11.5-14.5); WHITE BLOOD COUNT (AUTO) 8.4 K/uL (4.5-11.0)
[2016-04-08 07:34] LABS: ALANINE AMINOTRANSFERASE 332 U/L (12-78); ALBUMIN 2.9 g/dL (3.4-5.0); ANION GAP 9 mmol/L (8-16); ASPARTATE AMINOTRANSFERASE 236 U/L (15-37); CALCIUM, TOTAL 9.7 mg/dL (8.8-10.5); CARBON DIOXIDE 29 mmol/L (22-29); CHLORIDE 105 mmol/L (98-107); CREATININE 0.88 mg/dL (0.60-1.30); GLOMERULAR FILTR. RATE CALC > 60 mL/min (>60); POTASSIUM 4.1 mmol/L (3.5-5.1); SODIUM SERUM 143 mmol/L (136-145); TOTAL PROTEIN, SERUM 7.2 g/dL (6.4-8.2); UREA NITROGEN, BLOOD 23 mg/dL (7-18)
[2016-04-08] MEDS: HEPARIN SODIUM,PORCINE 5,000 UNITS/ML VIAL SQ SCH ×3 (08:00→23:24)
[2016-04-08 08:45] LABS: RBC MORPHOLOGY COMMENT DIMORPHIC RBC
[2016-04-08] MEDS: ALBUTEROL SULFATE 2.5 MG/0.5 ML NEB SOLUTION NEB SCH ×4 (09:50→20:05)
[2016-04-08] MEDS: IPRATROPIUM BROMIDE 0.5 MG/2.5 ML NEB SOLUTION NEB SCH ×4 (09:50→20:05)
[2016-04-08] MEDS: ACYCLOVIR IV SCH ×3 (10:11→23:22)
[2016-04-08] MEDS: WATER IV SCH ×3 (10:11→23:22)
[2016-04-08] MEDS: DEXTROSE 5% IV SCH ×3 (10:11→23:22)
[2016-04-08] MEDS: METOPROLOL TARTRATE 25 MG TABLET PO SCH ×2 (12:48→20:04)
[2016-04-08] MEDS: AmLODIPine BESYLATE 5 MG TABLET PO SCH (12:48)
[2016-04-08] MEDS: FAMOTIDINE 20 MG TABLET PO SCH (12:48)
[2016-04-08] MEDS: NYSTATIN 15 GM POWDER BOTTLE TP SCH ×2 (12:48→20:04)
[2016-04-08] MEDS: CHOLECALCIFEROL (VIT D3) 1,000 UNITS TABLET NG SCH ×2 (12:48→20:15)
[2016-04-08] MEDS: DOCUSATE SODIUM 250 MG CAPSULE PO SCH (20:04)
[2016-04-09 03:22] LABS: HEPATITIS Bs ANTIGEN SCREEN P Negative (Negative); HEPATITIS C AB SCREEN <0.1 s/co ratio (0.0-0.9)
[2016-04-09 04:25] VITALS: BP 141/71
[2016-04-09 06:50] LABS: INR 1.1 (0.9-1.1); PROTHROMBIN TIME 11.3 SEC (9.4-11.6)
[2016-04-09 07:26] VITALS: BP 164/84
[2016-04-09] MEDS: HEPARIN SODIUM,PORCINE 5,000 UNITS/ML VIAL SQ SCH ×3 (08:20→23:45)
[2016-04-09] MEDS: FAMOTIDINE 20 MG TABLET PO SCH (08:20)
[2016-04-09] MEDS: AmLODIPine BESYLATE 5 MG TABLET PO SCH (08:20)
[2016-04-09] MEDS: METOPROLOL TARTRATE 25 MG TABLET PO SCH ×2 (08:20→19:56)
[2016-04-09] MEDS: CHOLECALCIFEROL (VIT D3) 1,000 UNITS TABLET NG SCH ×2 (08:20→19:56)
[2016-04-09] MEDS: DEXTROSE 5% IV SCH ×3 (08:21→23:44)
[2016-04-09] MEDS: ACYCLOVIR IV SCH ×3 (08:21→23:44)
[2016-04-09] MEDS: WATER IV SCH ×3 (08:21→23:44)
[2016-04-09] MEDS: NYSTATIN 15 GM POWDER BOTTLE TP SCH ×2 (08:21→19:57)
[2016-04-09] MEDS: IPRATROPIUM BROMIDE 0.5 MG/2.5 ML NEB SOLUTION NEB SCH ×4 (09:45→20:41)
[2016-04-09] MEDS: ALBUTEROL SULFATE 2.5 MG/0.5 ML NEB SOLUTION NEB SCH ×4 (09:45→20:41)
[2016-04-09 11:39] VITALS: BP 153/86
[2016-04-09 15:35] VITALS: BP 157/90
[2016-04-09] MEDS: SODIUM CHLORIDE 0.45% 1,000 ML IV SCH (17:02)
[2016-04-09 19:52] VITALS: BP 153/83
[2016-04-09] MEDS: OXYGEN THERAPY IH SCH (19:57)
[2016-04-09] MEDS: ACETAMINOPHEN 325 MG TABLET PO PRN (19:57)
[2016-04-09] MEDS: DOCUSATE SODIUM 250 MG CAPSULE PO SCH (19:57)
[2016-04-10] VITALS (7 sets, daily range): BP systolic 152–168; BP diastolic 71–95
[2016-04-10 06:31] LABS: BASOPHILS % (AUTO) 0.6 % (0.0-2.0); EOSINOPHILS % (AUTO) 0.3 % (1.0-6.0); HEMATOCRIT 40.2 % (41-53); HEMOGLOBIN 12.8 g/dL (13.5-17.5); LYMPHOCYTES # (AUTO) 1.9 K/uL (1.0-4.8); LYMPHOCYTES % (AUTO) 21.9 % (22.0-44.0); MEAN CORPUSCULAR HGB CONC 31.9 G/dL (31.0-37.0); MEAN CORPUSCULAR VOLUME 97 fL (80-100); MONOCYTES # (AUTO) 1.1 K/uL (0.1-1.0); MONOCYTES % (AUTO) 12.2 % (2.0-9.0); NEUTROPHILS # (AUTO) 5.8 K/uL (1.8-7.7); PLATELET COUNT (AUTO) 315 K/uL (150-450); RED BLOOD CELL COUNT(AUTO) 4.14 MIL/uL (4.50-5.90); RED CELL DISTRIBUTION WIDTH 19.9 % (11.5-14.5); WHITE BLOOD COUNT (AUTO) 8.9 K/uL (4.5-11.0)
[2016-04-10 06:53] LABS: ALANINE AMINOTRANSFERASE 351 U/L (12-78); ALBUMIN 2.8 g/dL (3.4-5.0); ANION GAP 8 mmol/L (8-16); ASPARTATE AMINOTRANSFERASE 189 U/L (15-37); BILIRUBIN,TOTAL 0.6 mg/dL (0.1-1.0); CALCIUM, TOTAL 9.4 mg/dL (8.8-10.5); CARBON DIOXIDE 30 mmol/L (22-29); CHLORIDE 107 mmol/L (98-107); CREATININE 0.81 mg/dL (0.60-1.30); GLOMERULAR FILTR. RATE CALC > 60 mL/min (>60); POTASSIUM 3.8 mmol/L (3.5-5.1); SODIUM SERUM 145 mmol/L (136-145); TOTAL PROTEIN, SERUM 6.7 g/dL (6.4-8.2); UREA NITROGEN, BLOOD 27 mg/dL (7-18)
[2016-04-10 07:51] LABS: APPEARANCE,URINE CLEAR (CLEAR); GLUCOSE, URINE (UA) NEGATIVE (NEGATIVE); KETONES,URINE NEGATIVE (NEGATIVE); LEUKOCYTE ESTERASE ,URINE NEGATIVE (NEGATIVE); OCCULT BLOOD,URINE LARGE (NEGATIVE); PROTEIN,URINE POS 1+ (NEGATIVE)
[2016-04-10 07:54] LABS: SQUAMOUS EPITHELIAL CELL,UR Few /LPF (None Seen); WBC,URINE 0-2 /HPF (0-5)
[2016-04-10] MEDS: DEXTROSE 5% IV SCH (08:00)
[2016-04-10] MEDS: WATER IV SCH (08:00)
[2016-04-10] MEDS: ACYCLOVIR IV SCH (08:00)
[2016-04-10] MEDS: HEPARIN SODIUM,PORCINE 5,000 UNITS/ML VIAL SQ SCH ×2 (08:01→16:46)
[2016-04-10] MEDS: OXYGEN THERAPY IH SCH ×2 (08:01→21:20)
[2016-04-10] MEDS: IPRATROPIUM BROMIDE 0.5 MG/2.5 ML NEB SOLUTION NEB SCH ×4 (08:27→19:29)
[2016-04-10] MEDS: ALBUTEROL SULFATE 2.5 MG/0.5 ML NEB SOLUTION NEB SCH ×4 (08:27→19:29)
[2016-04-10 09:52] LABS: RBC MORPHOLOGY COMMENT ABNORMAL RBC MORPH
[2016-04-10] MEDS: METOPROLOL TARTRATE 25 MG TABLET PO SCH ×2 (10:16→21:07)
[2016-04-10] MEDS: NYSTATIN 15 GM POWDER BOTTLE TP SCH ×2 (10:16→21:07)
[2016-04-10] MEDS: FAMOTIDINE 20 MG TABLET PO SCH (10:16)
[2016-04-10] MEDS: CHOLECALCIFEROL (VIT D3) 1,000 UNITS TABLET NG SCH ×2 (10:16→21:07)
[2016-04-10] MEDS: AmLODIPine BESYLATE 5 MG TABLET PO SCH (10:16)
[2016-04-10] MEDS: SODIUM CHLORIDE 0.45% 1,000 ML IV SCH (13:07)
[2016-04-10] MEDS: DOCUSATE SODIUM 250 MG CAPSULE PO SCH (21:07)
[2016-04-11] MEDS: HEPARIN SODIUM,PORCINE 5,000 UNITS/ML VIAL SQ SCH ×3 (01:15→15:47)
[2016-04-11 04:11] VITALS: BP 147/79
[2016-04-11] MEDS: IPRATROPIUM BROMIDE 0.5 MG/2.5 ML NEB SOLUTION NEB SCH ×4 (07:27→20:41)
[2016-04-11] MEDS: ALBUTEROL SULFATE 2.5 MG/0.5 ML NEB SOLUTION NEB SCH ×4 (07:27→20:41)
[2016-04-11] MEDS: OXYGEN THERAPY IH SCH ×2 (07:28→20:41)
[2016-04-11 07:48] VITALS: BP 148/100
[2016-04-11] MEDS: METOPROLOL TARTRATE 25 MG TABLET PO SCH ×2 (08:36→20:52)
[2016-04-11] MEDS: FAMOTIDINE 20 MG TABLET PO SCH (08:36)
[2016-04-11] MEDS: AmLODIPine BESYLATE 5 MG TABLET PO SCH (08:36)
[2016-04-11] MEDS: NYSTATIN 15 GM POWDER BOTTLE TP SCH ×2 (08:36→20:53)
[2016-04-11] MEDS: CHOLECALCIFEROL (VIT D3) 1,000 UNITS TABLET NG SCH ×2 (08:36→20:52)
[2016-04-11] MEDS: SODIUM CHLORIDE 0.45% 1,000 ML IV SCH (08:36)
[2016-04-11] MEDS: BISACODYL 10 MG RECTAL RECTAL SUPPOSITORY PR PRN (08:55)
[2016-04-11 11:41] VITALS: BP 143/84
[2016-04-11 15:18] VITALS: BP 165/92
[2016-04-11 19:31] VITALS: BP 178/84
[2016-04-11] MEDS: DOCUSATE SODIUM 250 MG CAPSULE PO SCH (20:52)
[2016-04-11 23:17] VITALS: BP 158/88
[2016-04-12] MEDS: HEPARIN SODIUM,PORCINE 5,000 UNITS/ML VIAL SQ SCH ×3 (00:07→16:31)
[2016-04-12 04:21] VITALS: BP 163/84
[2016-04-12] MEDS: SODIUM CHLORIDE 0.45% 1,000 ML IV SCH (04:52)
[2016-04-12 07:26] VITALS: BP 140/79
[2016-04-12] MEDS: OXYGEN THERAPY IH SCH ×2 (07:56→20:54)
[2016-04-12] MEDS: CHOLECALCIFEROL (VIT D3) 1,000 UNITS TABLET NG SCH ×2 (07:56→20:54)
[2016-04-12] MEDS: AmLODIPine BESYLATE 5 MG TABLET PO SCH (07:56)
[2016-04-12] MEDS: METOPROLOL TARTRATE 25 MG TABLET PO SCH (07:56)
[2016-04-12] MEDS: FAMOTIDINE 20 MG TABLET PO SCH (07:56)
[2016-04-12] MEDS: NYSTATIN 15 GM POWDER BOTTLE TP SCH ×2 (07:57→20:54)
[2016-04-12] MEDS: ALBUTEROL SULFATE 2.5 MG/0.5 ML NEB SOLUTION NEB SCH ×4 (09:46→21:59)
[2016-04-12] MEDS: IPRATROPIUM BROMIDE 0.5 MG/2.5 ML NEB SOLUTION NEB SCH ×4 (09:46→21:59)
[2016-04-12 11:57] VITALS: BP 139/80
[2016-04-12 16:27] VITALS: BP 179/92
[2016-04-12] MEDS: ACETAMINOPHEN 325 MG TABLET GT PRN (16:37)
[2016-04-12 19:47] VITALS: BP 158/88
[2016-04-12] MEDS: METOPROLOL TARTRATE 25 MG TABLET NG SCH (20:54)
[2016-04-12] MEDS: DOCUSATE SODIUM 250 MG CAPSULE NG SCH (20:54)
[2016-04-13 00:04] VITALS: BP 158/95
[2016-04-13] MEDS: HEPARIN SODIUM,PORCINE 5,000 UNITS/ML VIAL SQ SCH ×3 (00:21→15:44)
[2016-04-13] MEDS: ACETAMINOPHEN 325 MG TABLET GT PRN ×3 (00:22→20:21)
[2016-04-13] MEDS: SODIUM CHLORIDE 0.45% 1,000 ML IV SCH ×2 (00:54→20:22)
[2016-04-13 05:05] VITALS: BP 151/88
[2016-04-13 07:57] VITALS: BP 158/101
[2016-04-13] MEDS: IPRATROPIUM BROMIDE 0.5 MG/2.5 ML NEB SOLUTION NEB SCH ×4 (08:16→19:52)
[2016-04-13] MEDS: ALBUTEROL SULFATE 2.5 MG/0.5 ML NEB SOLUTION NEB SCH ×4 (08:16→19:52)
[2016-04-13] MEDS: ACETAMINOPHEN 650 MG RECTAL SUPPOSITORY PR PRN (09:06)
[2016-04-13] MEDS: BISACODYL 10 MG RECTAL RECTAL SUPPOSITORY PR PRN (09:06)
[2016-04-13] MEDS: CHOLECALCIFEROL (VIT D3) 1,000 UNITS TABLET NG SCH ×2 (09:07→20:21)
[2016-04-13] MEDS: METOPROLOL TARTRATE 25 MG TABLET NG SCH ×2 (09:07→20:21)
[2016-04-13] MEDS: FAMOTIDINE 20 MG TABLET NG SCH (09:07)
[2016-04-13] MEDS: AmLODIPine BESYLATE 5 MG TABLET NG SCH (09:07)
[2016-04-13] MEDS: OXYGEN THERAPY IH SCH ×2 (09:08→20:20)
[2016-04-13] MEDS: NYSTATIN 15 GM POWDER BOTTLE TP SCH ×2 (09:08→20:22)
[2016-04-13 11:16] VITALS: BP 150/80
[2016-04-13 15:17] VITALS: BP 136/84
[2016-04-13] MEDS: DOCUSATE SODIUM 250 MG CAPSULE NG SCH (20:21)
[2016-04-14 00:22] VITALS: BP 133/95
[2016-04-14] MEDS: ACETAMINOPHEN 325 MG TABLET GT PRN ×3 (00:32→14:29)
[2016-04-14] MEDS: HEPARIN SODIUM,PORCINE 5,000 UNITS/ML VIAL SQ SCH ×3 (00:33→16:50)
[2016-04-14 05:43] VITALS: BP 153/90
[2016-04-14 07:19] VITALS: BP 166/98
[2016-04-14] MEDS: ALBUTEROL SULFATE 2.5 MG/0.5 ML NEB SOLUTION NEB SCH ×4 (08:05→20:13)
[2016-04-14] MEDS: IPRATROPIUM BROMIDE 0.5 MG/2.5 ML NEB SOLUTION NEB SCH ×4 (08:05→20:13)
[2016-04-14] MEDS: AmLODIPine BESYLATE 5 MG TABLET NG SCH (08:42)
[2016-04-14] MEDS: NYSTATIN 15 GM POWDER BOTTLE TP SCH ×2 (08:43→21:06)
[2016-04-14] MEDS: FAMOTIDINE 20 MG TABLET NG SCH (08:43)
[2016-04-14] MEDS: OXYGEN THERAPY IH SCH ×2 (08:43→21:06)
[2016-04-14] MEDS: CHOLECALCIFEROL (VIT D3) 1,000 UNITS TABLET NG SCH ×2 (08:43→21:06)
[2016-04-14] MEDS: METOPROLOL TARTRATE 25 MG TABLET NG SCH ×2 (08:43→21:06)
[2016-04-14 11:12] VITALS: BP 143/92
[2016-04-14 15:15] VITALS: BP 154/85
[2016-04-14] MEDS: SODIUM CHLORIDE 0.45% 1,000 ML IV SCH (16:50)
[2016-04-14 20:27] VITALS: BP 165/79
[2016-04-14] MEDS: DOCUSATE SODIUM 250 MG CAPSULE NG SCH (21:06)
[2016-04-15] MEDS: HEPARIN SODIUM,PORCINE 5,000 UNITS/ML VIAL SQ SCH ×4 (00:07→23:23)
[2016-04-15 04:10] VITALS: BP 132/78
[2016-04-15 07:17] LABS: ALANINE AMINOTRANSFERASE 394 U/L (12-78); ALBUMIN 2.6 g/dL (3.4-5.0); ANION GAP 8 mmol/L (8-16); ASPARTATE AMINOTRANSFERASE 138 U/L (15-37); BILIRUBIN,TOTAL 0.6 mg/dL (0.1-1.0); CARBON DIOXIDE 28 mmol/L (22-29); CHLORIDE 108 mmol/L (98-107); CREATININE 0.64 mg/dL (0.60-1.30); GLOMERULAR FILTR. RATE CALC > 60 mL/min (>60); POTASSIUM 3.8 mmol/L (3.5-5.1); SODIUM SERUM 144 mmol/L (136-145); TOTAL PROTEIN, SERUM 6.2 g/dL (6.4-8.2); UREA NITROGEN, BLOOD 23 mg/dL (7-18)
[2016-04-15 07:44] VITALS: BP 156/75
[2016-04-15] MEDS: IPRATROPIUM BROMIDE 0.5 MG/2.5 ML NEB SOLUTION NEB SCH ×4 (08:56→20:19)
[2016-04-15] MEDS: ALBUTEROL SULFATE 2.5 MG/0.5 ML NEB SOLUTION NEB SCH ×4 (08:56→20:19)
[2016-04-15] MEDS: METOPROLOL TARTRATE 25 MG TABLET NG SCH ×2 (09:55→20:27)
[2016-04-15] MEDS: OXYGEN THERAPY IH SCH ×2 (09:55→20:27)
[2016-04-15] MEDS: FAMOTIDINE 20 MG TABLET NG SCH (09:55)
[2016-04-15] MEDS: NYSTATIN 15 GM POWDER BOTTLE TP SCH ×2 (09:56→20:28)
[2016-04-15] MEDS: AmLODIPine BESYLATE 5 MG TABLET NG SCH (09:56)
[2016-04-15] MEDS: CHOLECALCIFEROL (VIT D3) 1,000 UNITS TABLET NG SCH ×2 (09:56→20:27)
[2016-04-15 11:31] VITALS: BP 147/72
[2016-04-15] MEDS: SODIUM CHLORIDE 0.45% 1,000 ML IV SCH (12:31)
[2016-04-15 15:29] VITALS: BP 154/81
[2016-04-15 19:36] VITALS: BP 159/86
[2016-04-15] MEDS: DOCUSATE SODIUM 250 MG CAPSULE NG SCH (20:27)
[2016-04-16 00:08] VITALS: BP 149/84
[2016-04-16 04:18] VITALS: BP 147/75
[2016-04-16] MEDS: SODIUM CHLORIDE 0.45% 1,000 ML IV SCH ×2 (06:40→23:35)
[2016-04-16 07:54] VITALS: BP 150/68
[2016-04-16] MEDS: OXYGEN THERAPY IH SCH ×2 (08:53→20:00)
[2016-04-16] MEDS: HEPARIN SODIUM,PORCINE 5,000 UNITS/ML VIAL SQ SCH ×3 (08:53→23:35)
[2016-04-16] MEDS: AmLODIPine BESYLATE 5 MG TABLET NG SCH (08:54)
[2016-04-16] MEDS: NYSTATIN 15 GM POWDER BOTTLE TP SCH ×2 (08:54→20:53)
[2016-04-16] MEDS: FAMOTIDINE 20 MG TABLET NG SCH (08:54)
[2016-04-16] MEDS: METOPROLOL TARTRATE 25 MG TABLET NG SCH ×2 (08:54→20:53)
[2016-04-16] MEDS: CHOLECALCIFEROL (VIT D3) 1,000 UNITS TABLET NG SCH ×2 (08:54→20:53)
[2016-04-16] MEDS: IPRATROPIUM BROMIDE 0.5 MG/2.5 ML NEB SOLUTION NEB SCH ×4 (09:22→20:48)
[2016-04-16] MEDS: ALBUTEROL SULFATE 2.5 MG/0.5 ML NEB SOLUTION NEB SCH ×4 (09:22→20:48)
[2016-04-16 11:22] VITALS: BP 136/100
[2016-04-16 15:48] VITALS: BP 149/84
[2016-04-16 19:46] VITALS: BP 155/77
[2016-04-16] MEDS: DOCUSATE SODIUM 250 MG CAPSULE NG SCH (20:53)
[2016-04-17 00:17] VITALS: BP 141/82
[2016-04-17 07:45] VITALS: BP 156/93
[2016-04-17] MEDS: ALBUTEROL SULFATE 2.5 MG/0.5 ML NEB SOLUTION NEB SCH ×4 (07:57→20:37)
[2016-04-17] MEDS: IPRATROPIUM BROMIDE 0.5 MG/2.5 ML NEB SOLUTION NEB SCH ×4 (07:57→20:37)
[2016-04-17] MEDS: FAMOTIDINE 20 MG TABLET NG SCH (09:40)
[2016-04-17] MEDS: CHOLECALCIFEROL (VIT D3) 1,000 UNITS TABLET NG SCH ×2 (09:40→20:21)
[2016-04-17] MEDS: NYSTATIN 15 GM POWDER BOTTLE TP SCH (09:40)
[2016-04-17] MEDS: METOPROLOL TARTRATE 25 MG TABLET NG SCH ×2 (09:40→20:19)
[2016-04-17] MEDS: AmLODIPine BESYLATE 5 MG TABLET NG SCH (09:40)
[2016-04-17] MEDS: OXYGEN THERAPY IH SCH ×2 (09:40→20:37)
[2016-04-17] MEDS: HEPARIN SODIUM,PORCINE 5,000 UNITS/ML VIAL SQ SCH ×2 (09:48→18:40)
[2016-04-17 11:42] VITALS: BP 153/79
[2016-04-17 15:30] VITALS: BP 158/79
[2016-04-17 19:39] VITALS: BP 161/89
[2016-04-17] MEDS: DOCUSATE SODIUM 250 MG CAPSULE NG SCH (20:19)
[2016-04-18] VITALS (7 sets, daily range): BP systolic 150–157; BP diastolic 74–92
[2016-04-18] MEDS: SODIUM CHLORIDE 0.45% 1,000 ML IV SCH ×2 (00:28→17:40)
[2016-04-18] MEDS: NYSTATIN 15 GM POWDER BOTTLE TP SCH ×3 (00:28→20:19)
[2016-04-18] MEDS: HEPARIN SODIUM,PORCINE 5,000 UNITS/ML VIAL SQ SCH ×3 (00:31→17:06)
[2016-04-18] MEDS: ALBUTEROL SULFATE 2.5 MG/0.5 ML NEB SOLUTION NEB SCH ×4 (07:54→20:57)
[2016-04-18] MEDS: IPRATROPIUM BROMIDE 0.5 MG/2.5 ML NEB SOLUTION NEB SCH ×4 (07:54→20:57)
[2016-04-18] MEDS: ACETAMINOPHEN 325 MG TABLET GT PRN (10:32)
[2016-04-18] MEDS: FAMOTIDINE 20 MG TABLET NG SCH (10:32)
[2016-04-18] MEDS: METOPROLOL TARTRATE 25 MG TABLET NG SCH ×2 (10:34→20:18)
[2016-04-18] MEDS: CHOLECALCIFEROL (VIT D3) 1,000 UNITS TABLET NG SCH ×2 (10:37→20:18)
[2016-04-18] MEDS: OXYGEN THERAPY IH SCH ×2 (10:38→20:18)
[2016-04-18] MEDS: AmLODIPine BESYLATE 5 MG TABLET NG SCH (10:38)
[2016-04-18 12:17] LABS: GLUCOSE,POINT OF CARE 141 MG/DL (70-110)
[2016-04-18] MEDS: DOCUSATE SODIUM 250 MG CAPSULE NG SCH (20:18)
[2016-04-19] MEDS: HEPARIN SODIUM,PORCINE 5,000 UNITS/ML VIAL SQ SCH ×3 (00:33→17:08)
[2016-04-19 04:45] VITALS: BP 139/94
[2016-04-19 07:12] VITALS: BP 165/95
[2016-04-19] MEDS: ALBUTEROL SULFATE 2.5 MG/0.5 ML NEB SOLUTION NEB SCH ×4 (07:20→20:52)
[2016-04-19] MEDS: IPRATROPIUM BROMIDE 0.5 MG/2.5 ML NEB SOLUTION NEB SCH ×4 (07:20→20:52)
[2016-04-19] MEDS: FAMOTIDINE 20 MG TABLET NG SCH (08:48)
[2016-04-19] MEDS: OXYGEN THERAPY IH SCH ×2 (08:48→20:36)
[2016-04-19] MEDS: CHOLECALCIFEROL (VIT D3) 1,000 UNITS TABLET NG SCH ×2 (08:49→20:35)
[2016-04-19] MEDS: AmLODIPine BESYLATE 5 MG TABLET NG SCH (08:49)
[2016-04-19] MEDS: METOPROLOL TARTRATE 25 MG TABLET NG SCH ×2 (08:50→20:35)
[2016-04-19] MEDS: NYSTATIN 15 GM POWDER BOTTLE TP SCH (08:50)
[2016-04-19 11:30] VITALS: BP 153/84
[2016-04-19] MEDS: SODIUM CHLORIDE 0.45% 1,000 ML IV SCH (12:24)
[2016-04-19 15:33] VITALS: BP 151/86
[2016-04-19 20:13] VITALS: BP 141/83
[2016-04-19] MEDS: DOCUSATE SODIUM 250 MG CAPSULE NG SCH (20:35)
[2016-04-19 23:18] VITALS: BP 147/89
[2016-04-20] MEDS: NYSTATIN 15 GM POWDER BOTTLE TP SCH ×3 (00:06→20:35)
[2016-04-20] MEDS: HEPARIN SODIUM,PORCINE 5,000 UNITS/ML VIAL SQ SCH ×3 (00:07→16:17)
[2016-04-20 05:00] VITALS: BP 158/91
[2016-04-20 06:41] LABS: HEMATOCRIT 41.5 % (41-53); HEMOGLOBIN 13.2 g/dL (13.5-17.5); MEAN CORPUSCULAR HEMOGLOBIN 31.4 pg (26.0-34.0); MEAN CORPUSCULAR HGB CONC 31.8 G/dL (31.0-37.0); MEAN CORPUSCULAR VOLUME 99 fL (80-100); PLATELET COUNT (AUTO) 281 K/uL (150-450); RED BLOOD CELL COUNT(AUTO) 4.21 MIL/uL (4.50-5.90); RED CELL DISTRIBUTION WIDTH 22.1 % (11.5-14.5); WHITE BLOOD COUNT (AUTO) 9.5 K/uL (4.5-11.0)
[2016-04-20 06:44] LABS: PROTHROMBIN TIME 10.7 SEC (9.4-11.6)
[2016-04-20 07:10] VITALS: BP 140/94
[2016-04-20] MEDS: IPRATROPIUM BROMIDE 0.5 MG/2.5 ML NEB SOLUTION NEB SCH ×4 (08:18→20:18)
[2016-04-20] MEDS: ALBUTEROL SULFATE 2.5 MG/0.5 ML NEB SOLUTION NEB SCH ×4 (08:18→20:18)
[2016-04-20] MEDS: AmLODIPine BESYLATE 5 MG TABLET NG SCH (08:49)
[2016-04-20] MEDS: METOPROLOL TARTRATE 25 MG TABLET NG SCH ×2 (08:49→20:35)
[2016-04-20] MEDS: CHOLECALCIFEROL (VIT D3) 1,000 UNITS TABLET NG SCH ×2 (08:49→20:34)
[2016-04-20] MEDS: FAMOTIDINE 20 MG TABLET NG SCH (08:50)
[2016-04-20 11:15] VITALS: BP 134/73
[2016-04-20 12:53] LABS: BAND NEUTROPHILS % (MANUAL) 3 % (1-5); EOSINOPHILS % (MANUAL) 3 % (1-6); LYMPHOCYTES % (MANUAL) 21 % (22-44); TOTAL CELLS COUNTED 100
[2016-04-20 15:00] VITALS: BP 155/92
[2016-04-20] MEDS: OXYGEN THERAPY IH SCH ×2 (16:00→20:18)
[2016-04-20] MEDS: SODIUM CHLORIDE 0.45% 1,000 ML IV SCH (16:21)
[2016-04-20 19:14] VITALS: BP 142/88
[2016-04-20] MEDS: DOCUSATE SODIUM 250 MG CAPSULE NG SCH (20:34)
[2016-04-20 23:54] VITALS: BP 155/86
[2016-04-21 05:08] VITALS: BP 146/77
[2016-04-21 07:02] VITALS: BP 157/94
[2016-04-21 08:08] LABS: ALANINE AMINOTRANSFERASE 211 U/L (12-78); ALBUMIN 2.7 g/dL (3.4-5.0); ASPARTATE AMINOTRANSFERASE 63 U/L (15-37); BILIRUBIN,TOTAL 0.6 mg/dL (0.1-1.0); CALCIUM, TOTAL 9.3 mg/dL (8.8-10.5); CARBON DIOXIDE 26 mmol/L (22-29); CREATININE 0.63 mg/dL (0.60-1.30); GLOMERULAR FILTR. RATE CALC > 60 mL/min (>60); SODIUM SERUM 135 mmol/L (136-145); TOTAL PROTEIN, SERUM 6.6 g/dL (6.4-8.2); UREA NITROGEN, BLOOD 15 mg/dL (7-18)
[2016-04-21] MEDS: METOPROLOL TARTRATE 25 MG TABLET NG SCH ×2 (08:10→20:02)
[2016-04-21] MEDS: ALBUTEROL SULFATE 2.5 MG/0.5 ML NEB SOLUTION NEB SCH ×4 (08:11→21:00)
[2016-04-21] MEDS: FAMOTIDINE 20 MG TABLET NG SCH ×2 (08:11→12:40)
[2016-04-21] MEDS: AmLODIPine BESYLATE 5 MG TABLET NG SCH ×2 (08:11→12:40)
[2016-04-21] MEDS: IPRATROPIUM BROMIDE 0.5 MG/2.5 ML NEB SOLUTION NEB SCH ×4 (08:11→21:00)
[2016-04-21] MEDS: CHOLECALCIFEROL (VIT D3) 1,000 UNITS TABLET NG SCH ×2 (08:11→12:40)
[2016-04-21] MEDS: HEPARIN SODIUM,PORCINE 5,000 UNITS/ML VIAL SQ SCH ×3 (08:13→15:44)
[2016-04-21] MEDS: NYSTATIN 15 GM POWDER BOTTLE TP SCH ×2 (08:14→20:03)
[2016-04-21 08:31] LABS: ANION GAP 9 mmol/L (8-16); CHLORIDE 100 mmol/L (98-107); POTASSIUM 4.2 mmol/L (3.5-5.1)
[2016-04-21] MEDS ORDERED: SODIUM CHLORIDE 0.9% 1,000 ML IV ONE (08:39)
[2016-04-21] MEDS ORDERED: MEPERIDINE-PF 25 MG/ML SYRINGE IVP PRN (09:30)
[2016-04-21] MEDS ORDERED: OXYGEN THERAPY IH SCH (09:30)
[2016-04-21] MEDS ORDERED: FentaNYL CITRATE-PF 100 MCG/2 ML VIAL IVP PRN (09:30)
[2016-04-21] MEDS ORDERED: HYDROmorphone 2 MG/ML SYRINGE IVP PRN (09:30)
[2016-04-21 10:58] VITALS: BP 144/97
[2016-04-21] MEDS ORDERED: PROPOFOL 1% 20 ML VIAL IVP ONE (12:00)
[2016-04-21] MEDS: SODIUM CHLORIDE 0.45% 1,000 ML IV SCH (12:40)
[2016-04-21 15:35] VITALS: BP 162/89
[2016-04-21 19:30] VITALS: BP 161/92
[2016-04-21] MEDS: DOCUSATE SODIUM 250 MG CAPSULE NG SCH (20:02)
[2016-04-21 23:55] VITALS: BP 157/72
[2016-04-22] MEDS: HEPARIN SODIUM,PORCINE 5,000 UNITS/ML VIAL SQ SCH ×2 (01:30→09:12)
[2016-04-22 04:26] VITALS: BP 159/87
[2016-04-22 07:51] VITALS: BP 169/93
[2016-04-22] MEDS: METOPROLOL TARTRATE 25 MG TABLET NG SCH (09:12)
[2016-04-22] MEDS: CHOLECALCIFEROL (VIT D3) 1,000 UNITS TABLET NG SCH (09:12)
[2016-04-22] MEDS: SODIUM CHLORIDE 0.45% 1,000 ML IV SCH (09:13)
[2016-04-22] MEDS: NYSTATIN 15 GM POWDER BOTTLE TP SCH (09:24)
[2016-04-22] MEDS: OXYGEN THERAPY IH SCH (09:26)
[2016-04-22] MEDS: ALBUTEROL SULFATE 2.5 MG/0.5 ML NEB SOLUTION NEB SCH ×2 (09:31→14:21)
[2016-04-22] MEDS: IPRATROPIUM BROMIDE 0.5 MG/2.5 ML NEB SOLUTION NEB SCH ×2 (09:31→14:21)
[2016-04-22 11:31] VITALS: BP 147/90
[2016-04-22] MEDS ORDERED: AMLO-511 PO (14:19)
[2016-04-22] MEDS ORDERED: HEPA500017 SQ (14:21)
== END 2016-04-22 15:35 | DRG 682 ==
LOC: EMS 14:33 → 5N 20:21 → ICU 03-12 13:51 → 5S 03-16 22:58 → 6N 04-17 11:24
PROVIDERS: ADMIT Internal Medicine; ATTEND Internal Medicine
PROC: 4A10X4Z Monitoring of Central Nervous Electrical Activity, External Approach (ICD-10-PCS; 2016-03-13)
PROC: 4A10X4Z Monitoring of Central Nervous Electrical Activity, External Approach (ICD-10-PCS; 2016-03-21)
PROC: 009U3ZX Drainage of Spinal Canal, Percutaneous Approach, Diagnostic (ICD-10-PCS; 2016-03-22)
PROC: 0DJ08ZZ Inspection of Upper Intestinal Tract, Via Natural or Artificial Opening Endoscopic (ICD-10-PCS; 2016-04-06)
PROC: 0DH63UZ Insertion of Feeding Device into Stomach, Percutaneous Approach (ICD-10-PCS; principal; 2016-04-21 09:00)
DX: N17.9 Acute kidney failure, unspecified (principal); G93.40 Encephalopathy, unspecified; N39.0 Urinary tract infection, site not specified; F20.0 Paranoid schizophrenia; C34.12 Malignant neoplasm of upper lobe, left bronchus or lung; F02.81 Dementia in other diseases classified elsewhere, unspecified severity, with behavioral disturbance; E87.0 Hyperosmolality and hypernatremia; Z68.42 Body mass index [BMI] 45.0-49.9, adult; R65.10 Systemic inflammatory response syndrome (SIRS) of non-infectious origin without acute organ dysfunction; E86.0 Dehydration; E66.3 Overweight; I12.9 Hypertensive chronic kidney disease with stage 1 through stage 4 chronic kidney disease, or unspecified chronic kidney disease; N18.9 Chronic kidney disease, unspecified; K21.9 Gastro-esophageal reflux disease without esophagitis; I70.0 Atherosclerosis of aorta; I25.10 Atherosclerotic heart disease of native coronary artery without angina pectoris; R91.8 Other nonspecific abnormal finding of lung field; B95.2 Enterococcus as the cause of diseases classified elsewhere; E11.22 Type 2 diabetes mellitus with diabetic chronic kidney disease; E78.2 Mixed hyperlipidemia; E87.6 Hypokalemia; I45.10 Unspecified right bundle-branch block; I48.91 Unspecified atrial fibrillation; R13.10 Dysphagia, unspecified; G20 Parkinson's disease; Z87.891 Personal history of nicotine dependence; Z85.820 Personal history of malignant melanoma of skin
CPT/HCPCS: 62270; 70553; 71260; 74150; 76700; 80074; 82805; 82945; 82962; 83605; 83615; 83735; 84100; 84145; 84157; 84295; 85007; 86403; 86480; 86592; 86788; 86789; 87040; 87070; 87081; 87086; 87205; 87498; 87529; 87804; 89051; 90471; 92610; 93005; 94640; 94799; 95816; 96361; 96365; 96366; 96367; 96368; 96375; 97163; 99285; A9585; J0131; J0133; J0290; J0456; J0696; J1644; J2060; J2704; J2765; J3480; J3490; J7030; J7050; J7060

== ENCOUNTER 2016-05-03 09:58 | Inpatient (IN) | payer MEDICARE, OTHER ==
[~2016-05-03] VITALS: Ht 188 cm; Wt 99.8 kg
[~2016-05-03 09:58] MED LIST changes: +ACET-2247 PO; +ADV250 IH; -AMIT50TA3 PO; +AMLO-511 PO; -ARIP10TA14 PO; +ASPI-556 PO; +BISA10S PR; +CLOZ100 PO; -DIVA500T35 PO; +DOCU250C91 PO; -DONE10TA43 PO; +FAMO20 PO; +HEPA500017 SQ; +HYDR25TA PO; +IPRA3AMP4 NEB; +LOSA50TA37 PO; -MEMA10TA11 PO; +MEMA28CA PO; +METO25 PO; -OLAN5TAB2 PO; +RIVA1PAT TD; -ROSU10 PO; -VALS80TA2 PO; +VITAD1000 PO
[2016-05-03] MEDS ORDERED: 0.9% SODIUM CHLORIDE 10 ML SYRINGE IVP PRN ×2 (11:30→14:15)
[2016-05-03] MEDS ORDERED: ACETAMINOPHEN 650 MG RECTAL SUPPOSITORY PR ONE (11:30)
[2016-05-03] MEDS ORDERED: SODIUM CHLORIDE 0.9% 1,000 ML IV ONE ×2 (11:30→14:15)
[2016-05-03 11:32] LABS: GLUCOSE COMMENT 1 Doctor Notified; GLUCOSE,POINT OF CARE 116 MG/DL (70-110)
[2016-05-03 12:09] LABS: BASOPHILS % (AUTO) 0.6 % (0.0-2.0); EOSINOPHILS % (AUTO) 0.3 % (1.0-6.0); HEMATOCRIT 45.2 % (41-53); HEMOGLOBIN 14.4 g/dL (13.5-17.5); LYMPHOCYTES # (AUTO) 2.1 K/uL (1.0-4.8); LYMPHOCYTES % (AUTO) 23.1 % (22.0-44.0); MEAN CORPUSCULAR HEMOGLOBIN 31.8 pg (26.0-34.0); MEAN CORPUSCULAR HGB CONC 31.9 G/dL (31.0-37.0); MEAN CORPUSCULAR VOLUME 100 fL (80-100); MONOCYTES # (AUTO) 0.9 K/uL (0.1-1.0); MONOCYTES % (AUTO) 9.5 % (2.0-9.0); NEUTROPHILS # (AUTO) 6.2 K/uL (1.8-7.7); NEUTROPHILS % (AUTO) 66.5 % (40.0-70.0); PLATELET COUNT (AUTO) 197 K/uL (150-450); RED BLOOD CELL COUNT(AUTO) 4.54 MIL/uL (4.50-5.90); RED CELL DISTRIBUTION WIDTH 22.7 % (11.5-14.5); WHITE BLOOD COUNT (AUTO) 9.3 K/uL (4.5-11.0)
[2016-05-03 12:18] LABS: ALANINE AMINOTRANSFERASE 222 U/L (12-78); ANION GAP 10 mmol/L (8-16); ASPARTATE AMINOTRANSFERASE 82 U/L (15-37); BILIRUBIN,TOTAL 0.5 mg/dL (0.1-1.0); CALCIUM, TOTAL 8.9 mg/dL (8.8-10.5); CARBON DIOXIDE 32 mmol/L (22-29); CHLORIDE 122 mmol/L (98-107); CREATININE 0.94 mg/dL (0.60-1.30); GLOMERULAR FILTR. RATE CALC > 60 mL/min (>60); POTASSIUM 4.3 mmol/L (3.5-5.1); TOTAL PROTEIN, SERUM 6.6 g/dL (6.4-8.2); UREA NITROGEN, BLOOD 42 mg/dL (7-18)
[2016-05-03 12:20] LABS: SODIUM SERUM 164 mmol/L (136-145)
[2016-05-03 12:30] LABS: APPEARANCE,URINE CLEAR (CLEAR); GLUCOSE, URINE (UA) NEGATIVE (NEGATIVE); KETONES,URINE NEGATIVE (NEGATIVE); LEUKOCYTE ESTERASE ,URINE NEGATIVE (NEGATIVE); OCCULT BLOOD,URINE NEGATIVE (NEGATIVE); PROTEIN,URINE TRACE (NEGATIVE)
[2016-05-03 12:31] LABS: RBC MORPHOLOGY COMMENT ABNORMAL RBC MORPH
[2016-05-03 12:31] LABS: ADD UA MICROSCOPIC NO
[2016-05-03] MEDS ORDERED: SODIUM CHLORIDE 0.9% 500 ML IV ONE (13:00)
[2016-05-03] MEDS ORDERED: PIPERACILLIN/TAZO 3.375 GM/D5W 50 ML IV ONE (13:00)
[2016-05-03] MEDS ORDERED: LEVOFLOXACIN 750 MG/D5% WATER 150 ML IV ONE (13:00)
[2016-05-03 13:01] LABS: INR 1.1 (0.9-1.1); PROTHROMBIN TIME 11.6 SEC (9.4-11.6)
[2016-05-03 13:14] LABS: INFLUENZA TYPE B NEGATIVE FOR TYPE B (NEGATIVE)
[2016-05-03 13:39] LABS: PROCALCITONIN (PCT) 0.26 ng/mL (<0.50)
[2016-05-03] MEDS ORDERED: ACETAMINOPHEN 325 MG TABLET PO PRN (14:15)
[2016-05-03] MEDS ORDERED: ONDANSETRON HCL 4 MG/2 ML VIAL IVP PRN (14:15)
[2016-05-03] MEDS: ALBUTEROL SULFATE 2.5 MG/0.5 ML NEB SOLUTION NEB SCH ×2 (15:00→18:58)
[2016-05-03] MEDS: IPRATROPIUM BROMIDE 0.5 MG/2.5 ML NEB SOLUTION NEB SCH ×2 (15:00→18:58)
[2016-05-03 15:36] VITALS: BP 104/65
[2016-05-03 19:36] VITALS: BP 99/69
[2016-05-03] MEDS ORDERED: *CLINICAL-RENAL DOSING MEDICATIONS CLINICAL ONE ×2 (19:45)
[2016-05-03] MEDS: DEXTROSE 5%-0.45% SODIUM CHL 1,000 ML IV SCH (23:00)
[2016-05-03] MEDS: PIPERACILLIN/TAZO 3.375 GM/D5W 50 ML IV SCH (23:39)
[2016-05-03 23:40] VITALS: BP 153/95
[2016-05-04 00:12] LABS: GLUCOSE,POINT OF CARE 110 MG/DL (70-110)
[2016-05-04] MEDS: ALBUTEROL SULFATE 2.5 MG/0.5 ML NEB SOLUTION NEB SCH (00:17)
[2016-05-04] MEDS: IPRATROPIUM BROMIDE 0.5 MG/2.5 ML NEB SOLUTION NEB SCH (00:18)
[2016-05-04] MEDS: PIPERACILLIN/TAZO 3.375 GM/D5W 50 ML IV SCH ×4 (02:46→20:00)
[2016-05-04 04:12] VITALS: BP 147/84
[2016-05-04] MEDS: LANSOPRAZOLE 15 MG CAPSULE PO SCH (05:35)
[2016-05-04] MEDS: ACETAMINOPHEN 325 MG TABLET PO PRN ×2 (05:54→20:05)
[2016-05-04] MEDS ORDERED: ACETAMINOPHEN 650 MG/20.3 ML SOLUTION UDCUP PO PRN (06:00)
[2016-05-04 06:06] LABS: BASOPHILS # (AUTO) 0.02 K/uL (0.00-0.20); BASOPHILS % (AUTO) 0.2 % (0.0-2.0); EOSINOPHILS # (AUTO) 0.04 K/uL (0.00-0.70); HEMATOCRIT 41.9 % (41-53); HEMOGLOBIN 13.3 g/dL (13.5-17.5); LYMPHOCYTES # (AUTO) 2.3 K/uL (1.0-4.8); LYMPHOCYTES % (AUTO) 26.3 % (22.0-44.0); MEAN CORPUSCULAR HEMOGLOBIN 31.9 pg (26.0-34.0); MEAN CORPUSCULAR HGB CONC 31.9 G/dL (31.0-37.0); MEAN CORPUSCULAR VOLUME 100 fL (80-100); MONOCYTES # (AUTO) 0.8 K/uL (0.1-1.0); MONOCYTES % (AUTO) 9.2 % (2.0-9.0); NEUTROPHILS # (AUTO) 5.6 K/uL (1.8-7.7); NEUTROPHILS % (AUTO) 63.8 % (40.0-70.0); PLATELET COUNT (AUTO) 169 K/uL (150-450); RED BLOOD CELL COUNT(AUTO) 4.18 MIL/uL (4.50-5.90); RED CELL DISTRIBUTION WIDTH 23.1 % (11.5-14.5); WHITE BLOOD COUNT (AUTO) 8.8 K/uL (4.5-11.0)
[2016-05-04 06:27] LABS: GLUCOSE,POINT OF CARE 146 MG/DL (70-110)
[2016-05-04 07:11] LABS: ALANINE AMINOTRANSFERASE 184 U/L (12-78); ALBUMIN 2.7 g/dL (3.4-5.0); ANION GAP 11 mmol/L (8-16); ASPARTATE AMINOTRANSFERASE 77 U/L (15-37); BILIRUBIN,TOTAL 0.9 mg/dL (0.1-1.0); CALCIUM, TOTAL 8.3 mg/dL (8.8-10.5); CARBON DIOXIDE 29 mmol/L (22-29); CHLORIDE 121 mmol/L (98-107); CREATININE 1.03 mg/dL (0.60-1.30); GLOMERULAR FILTR. RATE CALC > 60 mL/min (>60); PHOSPHORUS 4.1 mg/dL (2.5-4.9); POTASSIUM 3.9 mmol/L (3.5-5.1); UREA NITROGEN, BLOOD 36 mg/dL (7-18)
[2016-05-04 07:19] VITALS: BP 129/73
[2016-05-04 07:28] LABS: SODIUM SERUM 161 mmol/L (136-145)
[2016-05-04 11:52] VITALS: BP 134/80
[2016-05-04] MEDS: AmLODIPine BESYLATE 5 MG TABLET PO SCH (12:36)
[2016-05-04] MEDS: ASPIRIN 81 MG EC TABLET PO SCH (12:36)
[2016-05-04] MEDS: CHOLECALCIFEROL (VIT D3) 1,000 UNITS TABLET PO SCH ×2 (12:36→20:00)
[2016-05-04 13:06] LABS: GLUCOSE,POINT OF CARE 107 MG/DL (70-110)
[2016-05-04] MEDS: DEXTROSE 5%-0.45% SODIUM CHL 1,000 ML IV SCH (14:09)
[2016-05-04 15:24] VITALS: BP 145/77
[2016-05-04 18:12] LABS: GLUCOSE,POINT OF CARE 109 MG/DL (70-110)
[2016-05-04 19:57] VITALS: BP 147/81
[2016-05-04] MEDS: DOCUSATE SODIUM 250 MG CAPSULE PO SCH (20:00)
[2016-05-04] MEDS: METOPROLOL TARTRATE 25 MG TABLET PO SCH (20:00)
[2016-05-04] MEDS: HEPARIN SODIUM,PORCINE 5,000 UNITS/ML VIAL SQ SCH (20:01)
[2016-05-04 23:05] VITALS: BP 122/75
[2016-05-05] MEDS: ACETAMINOPHEN 325 MG TABLET PO PRN ×2 (01:56→20:24)
[2016-05-05] MEDS: PIPERACILLIN/TAZO 3.375 GM/D5W 50 ML IV SCH ×4 (01:56→20:23)
[2016-05-05] MEDS ORDERED: DEXTROSE 5%-WATER 1,000 ML IV SCH (02:00)
[2016-05-05] MEDS: DEXTROSE 5%-WATER 1,000 ML IV SCH ×2 (04:30→22:49)
[2016-05-05 04:37] VITALS: BP 143/84
[2016-05-05 05:46] LABS: GLUCOSE COMMENT 1 Received Meds; GLUCOSE,POINT OF CARE 104 MG/DL (70-110)
[2016-05-05] MEDS: LANSOPRAZOLE 15 MG CAPSULE PO SCH (06:04)
[2016-05-05 06:12] LABS: GLUCOSE,POINT OF CARE 137 MG/DL (70-110)
[2016-05-05 06:58] LABS: BASOPHILS % (AUTO) 0.4 % (0.0-2.0); EOSINOPHILS % (AUTO) 2.9 % (1.0-6.0); HEMATOCRIT 34.1 % (41-53); HEMOGLOBIN 10.5 g/dL (13.5-17.5); LYMPHOCYTES # (AUTO) 2.1 K/uL (1.0-4.8); LYMPHOCYTES % (AUTO) 28.4 % (22.0-44.0); MEAN CORPUSCULAR HEMOGLOBIN 31.9 pg (26.0-34.0); MEAN CORPUSCULAR HGB CONC 30.6 G/dL (31.0-37.0); MEAN CORPUSCULAR VOLUME 104 fL (80-100); MONOCYTES # (AUTO) 0.6 K/uL (0.1-1.0); MONOCYTES % (AUTO) 8.3 % (2.0-9.0); NEUTROPHILS # (AUTO) 4.4 K/uL (1.8-7.7); PLATELET COUNT (AUTO) 135 K/uL (150-450); RED BLOOD CELL COUNT(AUTO) 3.28 MIL/uL (4.50-5.90); RED CELL DISTRIBUTION WIDTH 23.3 % (11.5-14.5); WHITE BLOOD COUNT (AUTO) 7.3 K/uL (4.5-11.0)
[2016-05-05 07:19] LABS: ALANINE AMINOTRANSFERASE 151 U/L (12-78); ANION GAP 7 mmol/L (8-16); ASPARTATE AMINOTRANSFERASE 68 U/L (15-37); BILIRUBIN,TOTAL 0.6 mg/dL (0.1-1.0); CALCIUM, TOTAL 6.7 mg/dL (8.8-10.5); CARBON DIOXIDE 26 mmol/L (22-29); CHLORIDE 94 mmol/L (98-107); CREATININE 0.97 mg/dL (0.60-1.30); GLOMERULAR FILTR. RATE CALC > 60 mL/min (>60); PHOSPHORUS 3.1 mg/dL (2.5-4.9); SODIUM SERUM 127 mmol/L (136-145); THYROID STIMULATING HORMONE 1.22 uIU/mL (0.36-3.74); UREA NITROGEN, BLOOD 22 mg/dL (7-18)
[2016-05-05 07:35] LABS: RBC MORPHOLOGY COMMENT ABNORMAL RBC MORPH
[2016-05-05 08:05] VITALS: BP 100/69
[2016-05-05 08:32] LABS: GLUCOSE,POINT OF CARE 120 MG/DL (70-110)
[2016-05-05] MEDS: ASPIRIN 81 MG EC TABLET PO SCH (08:41)
[2016-05-05] MEDS: CHOLECALCIFEROL (VIT D3) 1,000 UNITS TABLET PO SCH ×2 (08:41→20:24)
[2016-05-05] MEDS: HEPARIN SODIUM,PORCINE 5,000 UNITS/ML VIAL SQ SCH ×2 (08:42→20:25)
[2016-05-05 10:03] LABS: ANION GAP 8 mmol/L (8-16); CALCIUM, TOTAL 8.5 mg/dL (8.8-10.5); CARBON DIOXIDE 28 mmol/L (22-29); CHLORIDE 120 mmol/L (98-107); CREATININE 0.71 mg/dL (0.60-1.30); GLOMERULAR FILTR. RATE CALC > 60 mL/min (>60); POTASSIUM 4.2 mmol/L (3.5-5.1); SODIUM SERUM 156 mmol/L (136-145); UREA NITROGEN, BLOOD 26 mg/dL (7-18)
[2016-05-05 10:06] LABS: PHOSPHORUS 3.6 mg/dL (2.5-4.9)
[2016-05-05 10:15] LABS: ABG OXYHEMOGLOBIN 92.1 % (94.0-100.0); TEMPERATURE, FAHRENHEIT, BG 98.5 FAHREN (96.0-98.6)
[2016-05-05 10:19] LABS: ABG BASE EXCESS 3.2 mmol/L (-2.0-3.0); ABG PCO2 41 mmHg (35-45); ABG PH 7.444 (7.35-7.450); ALLEN TEST, BLOOD GAS Positive
[2016-05-05 11:00] VITALS: BP 149/89
[2016-05-05] MEDS ORDERED: 0.9% SODIUM CHLORIDE 10 ML SYRINGE IVP PRN (11:00)
[2016-05-05] MEDS: METOPROLOL TARTRATE 25 MG TABLET PO SCH ×2 (11:19→20:24)
[2016-05-05] MEDS: AmLODIPine BESYLATE 5 MG TABLET PO SCH (11:19)
[2016-05-05 12:01] LABS: GLUCOSE,POINT OF CARE 124 MG/DL (70-110)
[2016-05-05 16:11] VITALS: BP 124/76
[2016-05-05 17:16] LABS: GLUCOSE,POINT OF CARE 116 MG/DL (70-110)
[2016-05-05] MEDS ORDERED: PNEUMOCOCCAL VACCINE POLYVALENT 0.5 ML VIAL [PPSV23] IM ONE (19:45)
[2016-05-05 19:59] VITALS: BP 145/86
[2016-05-05] MEDS: DOCUSATE SODIUM 250 MG CAPSULE PO SCH (20:24)
[2016-05-05 22:42] LABS: GLUCOSE,POINT OF CARE 115 MG/DL (70-110)
[2016-05-06] VITALS (7 sets, daily range): BP systolic 127–142; BP diastolic 67–83
[2016-05-06] MEDS: PIPERACILLIN/TAZO 3.375 GM/D5W 50 ML IV SCH ×4 (01:22→20:14)
[2016-05-06 01:27] LABS: GLUCOSE,POINT OF CARE 112 MG/DL (70-110)
[2016-05-06] MEDS: LANSOPRAZOLE 15 MG CAPSULE PO SCH (05:37)
[2016-05-06 07:16] LABS: ANION GAP 6 mmol/L (8-16); CALCIUM, TOTAL 8.4 mg/dL (8.8-10.5); CARBON DIOXIDE 31 mmol/L (22-29); CHLORIDE 118 mmol/L (98-107); CREATININE 0.76 mg/dL (0.60-1.30); GLOMERULAR FILTR. RATE CALC > 60 mL/min (>60); PHOSPHORUS 3.4 mg/dL (2.5-4.9); POTASSIUM 3.9 mmol/L (3.5-5.1); SODIUM SERUM 155 mmol/L (136-145); UREA NITROGEN, BLOOD 24 mg/dL (7-18)
[2016-05-06 08:01] LABS: GLUCOSE,POINT OF CARE 136 MG/DL (70-110)
[2016-05-06] MEDS: AmLODIPine BESYLATE 5 MG TABLET PO SCH (09:09)
[2016-05-06] MEDS: METOPROLOL TARTRATE 25 MG TABLET PO SCH ×2 (09:09→20:23)
[2016-05-06] MEDS: ASPIRIN 81 MG EC TABLET PO SCH (09:09)
[2016-05-06] MEDS: CHOLECALCIFEROL (VIT D3) 1,000 UNITS TABLET PO SCH ×2 (09:09→20:22)
[2016-05-06] MEDS: HEPARIN SODIUM,PORCINE 5,000 UNITS/ML VIAL SQ SCH ×2 (09:09→20:22)
[2016-05-06] MEDS: DEXTROSE 5%-WATER 1,000 ML IV SCH ×2 (09:10→19:31)
[2016-05-06 11:42] LABS: GLUCOSE,POINT OF CARE 112 MG/DL (70-110)
[2016-05-06] MEDS: DOCUSATE SODIUM 250 MG CAPSULE PO SCH (20:23)
[2016-05-06 23:31] LABS: GLUCOSE,POINT OF CARE 114 MG/DL (70-110)
[2016-05-06 23:31] LABS: GLUCOSE,POINT OF CARE 108 MG/DL (70-110)
[2016-05-07] MEDS: PIPERACILLIN/TAZO 3.375 GM/D5W 50 ML IV SCH ×4 (01:02→21:09)
[2016-05-07 04:44] VITALS: BP 138/87
[2016-05-07] MEDS: LANSOPRAZOLE 15 MG CAPSULE PO SCH (05:33)
[2016-05-07 06:27] LABS: GLUCOSE,POINT OF CARE 145 MG/DL (70-110)
[2016-05-07 06:27] LABS: GLUCOSE,POINT OF CARE 149 MG/DL (70-110)
[2016-05-07 07:07] VITALS: BP 141/67
[2016-05-07 07:27] LABS: ANION GAP 8 mmol/L (8-16); CALCIUM, TOTAL 8.5 mg/dL (8.8-10.5); CARBON DIOXIDE 28 mmol/L (22-29); CHLORIDE 112 mmol/L (98-107); CREATININE 0.67 mg/dL (0.60-1.30); GLOMERULAR FILTR. RATE CALC > 60 mL/min (>60); PHOSPHORUS 3.1 mg/dL (2.5-4.9); POTASSIUM 3.7 mmol/L (3.5-5.1); SODIUM SERUM 148 mmol/L (136-145); UREA NITROGEN, BLOOD 20 mg/dL (7-18)
[2016-05-07] MEDS: METOPROLOL TARTRATE 25 MG TABLET PO SCH ×2 (08:23→21:08)
[2016-05-07] MEDS: HEPARIN SODIUM,PORCINE 5,000 UNITS/ML VIAL SQ SCH ×2 (08:23→21:08)
[2016-05-07] MEDS: AmLODIPine BESYLATE 5 MG TABLET PO SCH (08:23)
[2016-05-07] MEDS: CHOLECALCIFEROL (VIT D3) 1,000 UNITS TABLET PO SCH ×2 (08:24→21:08)
[2016-05-07] MEDS: ASPIRIN 81 MG EC TABLET PO SCH (08:24)
[2016-05-07] MEDS: DEXTROSE 5%-WATER 1,000 ML IV SCH ×2 (08:24→21:08)
[2016-05-07] MEDS ORDERED: VANCOMYCIN HCL 1.5 GM in DEXTROSE 5%-WATER 250 ML IV ONE (11:00)
[2016-05-07 11:30] VITALS: BP 127/74
[2016-05-07 13:09] LABS: GLUCOSE,POINT OF CARE 125 MG/DL (70-110)
[2016-05-07 15:53] VITALS: BP 110/64
[2016-05-07] MEDS: VANCOMYCIN HCL 1.25 GM in DEXTROSE 5%-WATER 250 ML IV SCH (16:54)
[2016-05-07 18:42] LABS: GLUCOSE,POINT OF CARE 127 MG/DL (70-110)
[2016-05-07 19:34] VITALS: BP 115/72
[2016-05-07] MEDS: DOCUSATE SODIUM 250 MG CAPSULE PO SCH (21:08)
[2016-05-07 23:49] VITALS: BP 134/79
[2016-05-08] MEDS: VANCOMYCIN HCL 1.25 GM in DEXTROSE 5%-WATER 250 ML IV SCH ×3 (00:54→16:00)
[2016-05-08 02:42] LABS: GLUCOSE COMMENT 1 Received Meds; GLUCOSE,POINT OF CARE 112 MG/DL (70-110)
[2016-05-08] MEDS: PIPERACILLIN/TAZO 3.375 GM/D5W 50 ML IV SCH ×4 (03:24→15:21)
[2016-05-08 04:44] VITALS: BP 131/72
[2016-05-08 05:37] LABS: GLUCOSE COMMENT 1 Received Meds; GLUCOSE,POINT OF CARE 129 MG/DL (70-110)
[2016-05-08 06:33] LABS: ANION GAP 6 mmol/L (8-16); CALCIUM, TOTAL 8.4 mg/dL (8.8-10.5); CARBON DIOXIDE 30 mmol/L (22-29); CHLORIDE 109 mmol/L (98-107); CREATININE 0.78 mg/dL (0.60-1.30); GLOMERULAR FILTR. RATE CALC > 60 mL/min (>60); PHOSPHORUS 3.3 mg/dL (2.5-4.9); POTASSIUM 3.5 mmol/L (3.5-5.1); SODIUM SERUM 145 mmol/L (136-145); UREA NITROGEN, BLOOD 12 mg/dL (7-18)
[2016-05-08 07:33] VITALS: BP 125/83
[2016-05-08] MEDS: AmLODIPine BESYLATE 5 MG TABLET PO SCH (08:32)
[2016-05-08] MEDS: CHOLECALCIFEROL (VIT D3) 1,000 UNITS TABLET PO SCH ×2 (08:32→20:56)
[2016-05-08] MEDS: METOPROLOL TARTRATE 25 MG TABLET PO SCH ×2 (08:32→20:56)
[2016-05-08] MEDS: ASPIRIN 81 MG EC TABLET PO SCH (08:32)
[2016-05-08] MEDS: HEPARIN SODIUM,PORCINE 5,000 UNITS/ML VIAL SQ SCH ×2 (08:32→20:56)
[2016-05-08] MEDS: LANSOPRAZOLE 30 MG SOLUBLE TABLET GT SCH ×2 (09:26→15:22)
[2016-05-08 11:37] VITALS: BP 123/63
[2016-05-08] MEDS: DEXTROSE 5%-WATER 1,000 ML IV SCH ×2 (15:24→20:56)
[2016-05-08 15:44] VITALS: BP 133/68
[2016-05-08 17:06] LABS: GLUCOSE,POINT OF CARE 120 MG/DL (70-110)
[2016-05-08 17:47] LABS: GLUCOSE,POINT OF CARE 104 MG/DL (70-110)
[2016-05-08 20:00] VITALS: BP 136/86
[2016-05-08] MEDS: DOCUSATE SODIUM 250 MG CAPSULE PO SCH (20:56)
[2016-05-09] VITALS: BP 118/72
[2016-05-09] MEDS: VANCOMYCIN HCL 1.25 GM in DEXTROSE 5%-WATER 250 ML IV SCH ×3 (00:27→18:18)
[2016-05-09 02:02] LABS: GLUCOSE,POINT OF CARE 130 MG/DL (70-110)
[2016-05-09] MEDS: PIPERACILLIN/TAZO 3.375 GM/D5W 50 ML IV SCH ×4 (02:15→20:46)
[2016-05-09 06:56] VITALS: BP 125/70
[2016-05-09 07:14] VITALS: BP 153/89
[2016-05-09 07:42] LABS: GLUCOSE,POINT OF CARE 96 MG/DL (70-110)
[2016-05-09 08:08] LABS: ANION GAP 10 mmol/L (8-16); CALCIUM, TOTAL 8.9 mg/dL (8.8-10.5); CARBON DIOXIDE 29 mmol/L (22-29); CHLORIDE 108 mmol/L (98-107); CREATININE 0.72 mg/dL (0.60-1.30); GLOMERULAR FILTR. RATE CALC > 60 mL/min (>60); POTASSIUM 3.5 mmol/L (3.5-5.1); SODIUM SERUM 147 mmol/L (136-145); UREA NITROGEN, BLOOD 11 mg/dL (7-18)
[2016-05-09] MEDS: HEPARIN SODIUM,PORCINE 5,000 UNITS/ML VIAL SQ SCH ×2 (08:41→20:47)
[2016-05-09] MEDS: METOPROLOL TARTRATE 25 MG TABLET PO SCH ×2 (08:41→20:46)
[2016-05-09] MEDS: ASPIRIN 81 MG EC TABLET PO SCH (08:42)
[2016-05-09] MEDS: AmLODIPine BESYLATE 5 MG TABLET PO SCH (08:42)
[2016-05-09] MEDS: CHOLECALCIFEROL (VIT D3) 1,000 UNITS TABLET PO SCH ×2 (08:42→20:46)
[2016-05-09] MEDS: LANSOPRAZOLE 30 MG SOLUBLE TABLET GT SCH (08:43)
[2016-05-09] MEDS ORDERED: LORazepam 2 MG/ML VIAL IVP ONE (10:15)
[2016-05-09 11:32] LABS: GLUCOSE,POINT OF CARE 107 MG/DL (70-110)
[2016-05-09 11:34] VITALS: BP 123/86
[2016-05-09] MEDS ORDERED: IOVERSOL 350 MG/ML 100 ML VIAL ONE (14:58)
[2016-05-09] MEDS ORDERED: SODIUM CHLORIDE 0.9% 100 ML ONE (14:58)
[2016-05-09 16:00] VITALS: BP 134/77
[2016-05-09 17:56] LABS: GLUCOSE,POINT OF CARE 101 MG/DL (70-110)
[2016-05-09 20:00] VITALS: BP 128/71
[2016-05-09] MEDS: DOCUSATE SODIUM 250 MG CAPSULE PO SCH (20:46)
[2016-05-10] VITALS (7 sets, daily range): BP systolic 126–140; BP diastolic 60–91
[2016-05-10] MEDS: DEXTROSE 5%-WATER 1,000 ML IV SCH (00:17)
[2016-05-10] MEDS: VANCOMYCIN HCL 1.25 GM in DEXTROSE 5%-WATER 250 ML IV SCH ×4 (00:17→23:54)
[2016-05-10 00:32] LABS: GLUCOSE,POINT OF CARE 122 MG/DL (70-110)
[2016-05-10] MEDS: PIPERACILLIN/TAZO 3.375 GM/D5W 50 ML IV SCH ×4 (02:00→20:39)
[2016-05-10 06:27] LABS: ANION GAP 7 mmol/L (8-16); CALCIUM, TOTAL 8.3 mg/dL (8.8-10.5); CARBON DIOXIDE 30 mmol/L (22-29); CHLORIDE 105 mmol/L (98-107); CREATININE 0.84 mg/dL (0.60-1.30); GLOMERULAR FILTR. RATE CALC > 60 mL/min (>60); POTASSIUM 3.4 mmol/L (3.5-5.1); SODIUM SERUM 142 mmol/L (136-145)
[2016-05-10 07:12] LABS: UREA NITROGEN, BLOOD 11 mg/dL (7-18)
[2016-05-10] MEDS: CHOLECALCIFEROL (VIT D3) 1,000 UNITS TABLET PO SCH ×2 (08:40→20:39)
[2016-05-10] MEDS: ASPIRIN 81 MG EC TABLET PO SCH (08:40)
[2016-05-10] MEDS: LANSOPRAZOLE 30 MG SOLUBLE TABLET GT SCH (08:41)
[2016-05-10] MEDS: METOPROLOL TARTRATE 25 MG TABLET PO SCH ×2 (08:41→21:13)
[2016-05-10] MEDS: AmLODIPine BESYLATE 5 MG TABLET PO SCH (08:41)
[2016-05-10] MEDS: HEPARIN SODIUM,PORCINE 5,000 UNITS/ML VIAL SQ SCH ×2 (09:10→20:39)
[2016-05-10] MEDS ORDERED: POTASSIUM CHLORIDE 10% 40 MEQ/30 ML LIQUID UDCUP PEG ONE (10:30)
[2016-05-10 11:42] LABS: GLUCOSE COMMENT 1 Received Meds; GLUCOSE,POINT OF CARE 153 MG/DL (70-110)
[2016-05-10 12:17] LABS: GLUCOSE,POINT OF CARE 134 MG/DL (70-110)
[2016-05-10 18:07] LABS: GLUCOSE,POINT OF CARE 135 MG/DL (70-110)
[2016-05-10] MEDS: DOCUSATE SODIUM 250 MG CAPSULE PO SCH (20:38)
[2016-05-10 21:32] LABS: GLUCOSE,POINT OF CARE 117 MG/DL (70-110)
[2016-05-11] MEDS ORDERED: PIPERACILLIN SODIUM/TAZOBACTAM 2.25 GM in DEXTROSE 5%-WATER 50 ML IV ONE (02:00)
[2016-05-11 05:02] VITALS: BP 137/69
[2016-05-11 05:27] LABS: GLUCOSE,POINT OF CARE 137 MG/DL (70-110)
[2016-05-11 07:20] VITALS: BP 142/59
[2016-05-11 08:15] LABS: ANION GAP 4 mmol/L (8-16); CALCIUM, TOTAL 8.9 mg/dL (8.8-10.5); CARBON DIOXIDE 33 mmol/L (22-29); CHLORIDE 108 mmol/L (98-107); CREATININE 0.89 mg/dL (0.60-1.30); GLOMERULAR FILTR. RATE CALC > 60 mL/min (>60); POTASSIUM 3.8 mmol/L (3.5-5.1); SODIUM SERUM 145 mmol/L (136-145); UREA NITROGEN, BLOOD 9 mg/dL (7-18)
[2016-05-11] MEDS: VANCOMYCIN HCL 1.25 GM in DEXTROSE 5%-WATER 250 ML IV SCH (08:20)
[2016-05-11] MEDS: HEPARIN SODIUM,PORCINE 5,000 UNITS/ML VIAL SQ SCH ×2 (08:21→20:28)
[2016-05-11] MEDS: AMOX TR/POT CLAV 875 MG/125 MG TABLET GT SCH ×2 (09:07→20:28)
[2016-05-11] MEDS: LANSOPRAZOLE 30 MG SOLUBLE TABLET GT SCH (09:07)
[2016-05-11] MEDS: METOPROLOL TARTRATE 25 MG TABLET PO SCH ×2 (09:08→20:28)
[2016-05-11] MEDS: ASPIRIN 81 MG EC TABLET PO SCH (09:08)
[2016-05-11] MEDS: AmLODIPine BESYLATE 5 MG TABLET PO SCH (09:08)
[2016-05-11] MEDS: CHOLECALCIFEROL (VIT D3) 1,000 UNITS TABLET PO SCH ×2 (09:08→20:28)
[2016-05-11 11:20] VITALS: BP 131/75
[2016-05-11 12:52] LABS: GLUCOSE,POINT OF CARE 116 MG/DL (70-110)
[2016-05-11 16:36] VITALS: BP 109/57
[2016-05-11 19:55] VITALS: BP 120/63
[2016-05-11] MEDS: DOCUSATE SODIUM 250 MG CAPSULE PO SCH (20:28)
[2016-05-11 22:22] LABS: GLUCOSE,POINT OF CARE 115 MG/DL (70-110)
[2016-05-11 23:35] VITALS: BP 133/72
[2016-05-12 05:05] VITALS: BP 141/88
[2016-05-12 05:52] LABS: GLUCOSE,POINT OF CARE 130 MG/DL (70-110)
[2016-05-12 07:04] LABS: BASOPHILS # (AUTO) 0.03 K/uL (0.00-0.20); BASOPHILS % (AUTO) 0.4 % (0.0-2.0); EOSINOPHILS # (AUTO) 0.32 K/uL (0.00-0.70); EOSINOPHILS % (AUTO) 3.97 % (1.0-6.0); HEMATOCRIT 40.2 % (41-53); HEMOGLOBIN 13.2 g/dL (13.5-17.5); LYMPHOCYTES # (AUTO) 1.9 K/uL (1.0-4.8); LYMPHOCYTES % (AUTO) 23.8 % (22.0-44.0); MEAN CORPUSCULAR HEMOGLOBIN 32.3 pg (26.0-34.0); MEAN CORPUSCULAR HGB CONC 32.9 G/dL (31.0-37.0); MEAN CORPUSCULAR VOLUME 98 fL (80-100); MONOCYTES # (AUTO) 0.9 K/uL (0.1-1.0); MONOCYTES % (AUTO) 10.8 % (2.0-9.0); PLATELET COUNT (AUTO) 276 K/uL (150-450); RED BLOOD CELL COUNT(AUTO) 4.09 MIL/uL (4.50-5.90); RED CELL DISTRIBUTION WIDTH 21.5 % (11.5-14.5); WHITE BLOOD COUNT (AUTO) 8.1 K/uL (4.5-11.0)
[2016-05-12 07:20] VITALS: BP 142/73
[2016-05-12] MEDS: VANCOMYCIN HCL 1.25 GM in DEXTROSE 5%-WATER 250 ML IV SCH ×2 (07:29→20:36)
[2016-05-12 07:31] LABS: ANION GAP 8 mmol/L (8-16); CALCIUM, TOTAL 9.6 mg/dL (8.8-10.5); CARBON DIOXIDE 31 mmol/L (22-29); CHLORIDE 108 mmol/L (98-107); CREATININE 0.88 mg/dL (0.60-1.30); GLOMERULAR FILTR. RATE CALC > 60 mL/min (>60); PHOSPHORUS 4.1 mg/dL (2.5-4.9); SODIUM SERUM 147 mmol/L (136-145); UREA NITROGEN, BLOOD 11 mg/dL (7-18)
[2016-05-12] MEDS: CHOLECALCIFEROL (VIT D3) 1,000 UNITS TABLET PO SCH ×2 (08:56→20:36)
[2016-05-12] MEDS: AMOX TR/POT CLAV 875 MG/125 MG TABLET GT SCH ×2 (08:56→20:35)
[2016-05-12] MEDS: LANSOPRAZOLE 30 MG SOLUBLE TABLET GT SCH (08:56)
[2016-05-12] MEDS: AmLODIPine BESYLATE 5 MG TABLET PO SCH (08:56)
[2016-05-12] MEDS: ASPIRIN 81 MG EC TABLET PO SCH (08:56)
[2016-05-12] MEDS: HEPARIN SODIUM,PORCINE 5,000 UNITS/ML VIAL SQ SCH ×2 (08:56→20:36)
[2016-05-12] MEDS: METOPROLOL TARTRATE 25 MG TABLET PO SCH ×2 (08:56→20:35)
[2016-05-12 11:10] VITALS: BP 138/70
[2016-05-12 15:29] VITALS: BP 146/83
[2016-05-12 15:41] LABS: GLUCOSE,POINT OF CARE 102 MG/DL (70-110)
[2016-05-12 17:37] LABS: GLUCOSE,POINT OF CARE 107 MG/DL (70-110)
[2016-05-12 20:19] VITALS: BP 158/90
[2016-05-12] MEDS: DOCUSATE SODIUM 250 MG CAPSULE PO SCH (20:36)
[2016-05-12 23:27] VITALS: BP 127/70
[2016-05-12 23:51] LABS: GLUCOSE,POINT OF CARE 134 MG/DL (70-110)
[2016-05-13 04:42] VITALS: BP 150/77
[2016-05-13 05:47] LABS: GLUCOSE,POINT OF CARE 156 MG/DL (70-110)
[2016-05-13 06:01] LABS: BASOPHILS # (AUTO) 0.03 K/uL (0.00-0.20); BASOPHILS % (AUTO) 0.3 % (0.0-2.0); EOSINOPHILS # (AUTO) 0.22 K/uL (0.00-0.70); EOSINOPHILS % (AUTO) 2.18 % (1.0-6.0); HEMATOCRIT 42.6 % (41-53); LYMPHOCYTES # (AUTO) 2.1 K/uL (1.0-4.8); LYMPHOCYTES % (AUTO) 20.8 % (22.0-44.0); MEAN CORPUSCULAR HEMOGLOBIN 32.3 pg (26.0-34.0); MEAN CORPUSCULAR HGB CONC 32.8 G/dL (31.0-37.0); MEAN CORPUSCULAR VOLUME 98 fL (80-100); MONOCYTES # (AUTO) 0.8 K/uL (0.1-1.0); MONOCYTES % (AUTO) 7.8 % (2.0-9.0); NEUTROPHILS # (AUTO) 6.9 K/uL (1.8-7.7); NEUTROPHILS % (AUTO) 68.9 % (40.0-70.0); PLATELET COUNT (AUTO) 296 K/uL (150-450); RED BLOOD CELL COUNT(AUTO) 4.34 MIL/uL (4.50-5.90); RED CELL DISTRIBUTION WIDTH 21.5 % (11.5-14.5)
[2016-05-13 06:39] LABS: ANION GAP 8 mmol/L (8-16); CALCIUM, TOTAL 9.8 mg/dL (8.8-10.5); CARBON DIOXIDE 31 mmol/L (22-29); CHLORIDE 106 mmol/L (98-107); GLOMERULAR FILTR. RATE CALC > 60 mL/min (>60); PHOSPHORUS 3.9 mg/dL (2.5-4.9); POTASSIUM 4.1 mmol/L (3.5-5.1); SODIUM SERUM 145 mmol/L (136-145); UREA NITROGEN, BLOOD 15 mg/dL (7-18)
[2016-05-13 06:52] LABS: RBC MORPHOLOGY COMMENT ABNORMAL RBC MORPH
[2016-05-13 07:49] VITALS: BP 145/85
[2016-05-13] MEDS: METOPROLOL TARTRATE 25 MG TABLET PO SCH ×2 (08:13→20:31)
[2016-05-13] MEDS: VANCOMYCIN HCL 1.25 GM in DEXTROSE 5%-WATER 250 ML IV SCH (08:13)
[2016-05-13] MEDS: AMOX TR/POT CLAV 875 MG/125 MG TABLET GT SCH ×2 (08:13→20:31)
[2016-05-13] MEDS: AmLODIPine BESYLATE 5 MG TABLET PO SCH ×3 (08:13→20:55)
[2016-05-13] MEDS: LANSOPRAZOLE 30 MG SOLUBLE TABLET GT SCH (08:14)
[2016-05-13] MEDS: ASPIRIN 81 MG EC TABLET PO SCH (08:14)
[2016-05-13] MEDS: HEPARIN SODIUM,PORCINE 5,000 UNITS/ML VIAL SQ SCH ×2 (08:14→20:55)
[2016-05-13] MEDS: CHOLECALCIFEROL (VIT D3) 1,000 UNITS TABLET PO SCH ×2 (08:14→20:31)
[2016-05-13 11:52] VITALS: BP 138/73
[2016-05-13 11:52] LABS: GLUCOSE,POINT OF CARE 120 MG/DL (70-110)
[2016-05-13 15:35] VITALS: BP 140/75
[2016-05-13 17:28] LABS: GLUCOSE,POINT OF CARE 104 MG/DL (70-110)
[2016-05-13 19:28] VITALS: BP 138/81
[2016-05-13] MEDS: DOCUSATE SODIUM 250 MG CAPSULE PO SCH (20:31)
[2016-05-13] MEDS: VANCOMYCIN HCL 1 GM/D5% WATER 200 ML IV SCH (20:33)
[2016-05-13 23:53] VITALS: BP 137/87
[2016-05-14 00:12] LABS: GLUCOSE,POINT OF CARE 105 MG/DL (70-110)
[2016-05-14 05:08] VITALS: BP 124/88
[2016-05-14 07:02] LABS: ANION GAP 8 mmol/L (8-16); CALCIUM, TOTAL 9.8 mg/dL (8.8-10.5); CARBON DIOXIDE 31 mmol/L (22-29); CHLORIDE 107 mmol/L (98-107); CREATININE 0.99 mg/dL (0.60-1.30); GLOMERULAR FILTR. RATE CALC > 60 mL/min (>60); PHOSPHORUS 3.7 mg/dL (2.5-4.9); POTASSIUM 4.3 mmol/L (3.5-5.1); SODIUM SERUM 146 mmol/L (136-145); UREA NITROGEN, BLOOD 18 mg/dL (7-18)
[2016-05-14 07:23] VITALS: BP 136/74
[2016-05-14 07:32] LABS: GLUCOSE,POINT OF CARE 142 MG/DL (70-110)
[2016-05-14] MEDS: METOPROLOL TARTRATE 25 MG TABLET PO SCH (09:38)
[2016-05-14] MEDS: AMOX TR/POT CLAV 875 MG/125 MG TABLET GT SCH (09:39)
[2016-05-14] MEDS: VANCOMYCIN HCL 1 GM/D5% WATER 200 ML IV SCH (09:39)
[2016-05-14] MEDS: LANSOPRAZOLE 30 MG SOLUBLE TABLET GT SCH (09:39)
[2016-05-14] MEDS: CHOLECALCIFEROL (VIT D3) 1,000 UNITS TABLET PO SCH (09:40)
[2016-05-14] MEDS: HEPARIN SODIUM,PORCINE 5,000 UNITS/ML VIAL SQ SCH (09:40)
[2016-05-14] MEDS: ASPIRIN 81 MG EC TABLET PO SCH (09:40)
[2016-05-14] MEDS: AmLODIPine BESYLATE 5 MG TABLET PO SCH (09:40)
[2016-05-14 11:50] VITALS: BP 128/74
== END 2016-05-14 12:25 | DRG 871 ==
LOC: EMS 10:00 → 6N 13:36
PROVIDERS: ADMIT Internal Medicine; ATTEND Internal Medicine
PROC: 3E0234Z Introduction of Serum, Toxoid and Vaccine into Muscle, Percutaneous Approach (ICD-10-PCS; principal; 2016-05-05)
DX: A41.9 Sepsis, unspecified organism (principal); J18.9 Pneumonia, unspecified organism; G93.40 Encephalopathy, unspecified; E87.0 Hyperosmolality and hypernatremia; C34.90 Malignant neoplasm of unspecified part of unspecified bronchus or lung; E44.0 Moderate protein-calorie malnutrition; F20.0 Paranoid schizophrenia; J98.11 Atelectasis; E87.1 Hypo-osmolality and hyponatremia; R13.10 Dysphagia, unspecified; F03.90 Unspecified dementia, unspecified severity, without behavioral disturbance, psychotic disturbance, mood disturbance, and anxiety; K21.9 Gastro-esophageal reflux disease without esophagitis; J11.1 Influenza due to unidentified influenza virus with other respiratory manifestations; I51.7 Cardiomegaly; R09.02 Hypoxemia; E86.0 Dehydration; E78.5 Hyperlipidemia, unspecified; B96.89 Other specified bacterial agents as the cause of diseases classified elsewhere; E87.6 Hypokalemia; I10 Essential (primary) hypertension; R91.8 Other nonspecific abnormal finding of lung field; G20 Parkinson's disease; I48.91 Unspecified atrial fibrillation; E55.9 Vitamin D deficiency, unspecified; F17.210 Nicotine dependence, cigarettes, uncomplicated; Z87.440 Personal history of urinary (tract) infections; Z85.118 Personal history of other malignant neoplasm of bronchus and lung; Z85.89 Personal history of malignant neoplasm of other organs and systems; Z93.1 Gastrostomy status; Z85.820 Personal history of malignant melanoma of skin; Z68.28 Body mass index [BMI] 28.0-28.9, adult; Z86.718 Personal history of other venous thrombosis and embolism; Z23 Encounter for immunization
CPT/HCPCS: 51702; 71260; 82805; 82962; 83605; 83735; 84100; 84145; 84439; 84443; 87040; 87081; 87804; 92610; 93005; 94640; 96361; 96365; 96367; 97162; 99285; J1644; J1956; J2060; J2543; J3370; J7030; J7040; J7050; J7060

== ENCOUNTER 2016-05-19 14:29 | Inpatient (IN) | payer MEDICARE, OTHER ==
[~2016-05-19] VITALS: Ht 185.4 cm; Wt 100.0 kg
[~2016-05-19 14:29] MED LIST changes: -ACET-2247 PO; -ADV250 IH; -BISA10S PR; -CLOZ100 PO; -HYDR25TA PO; -LOSA50TA37 PO; -MEMA28CA PO; -RIVA1PAT TD
[2016-05-19 14:51] LABS: GLUCOSE,POINT OF CARE 115 MG/DL (70-110)
[2016-05-19] MEDS ORDERED: 0.9% SODIUM CHLORIDE 10 ML SYRINGE IVP PRN (15:00)
[2016-05-19] MEDS ORDERED: ACETAMINOPHEN 1000 MG/ISO-OSM 100 ML IV ONE (15:00)
[2016-05-19] MEDS ORDERED: SODIUM CHLORIDE 0.9% 1,000 ML IV ONE ×2 (15:00→16:30)
[2016-05-19 15:30] LABS: BASOPHILS % (AUTO) 1.1 % (0.0-2.0); EOSINOPHILS % (AUTO) 0.2 % (1.0-6.0); HEMATOCRIT 45.6 % (41-53); HEMOGLOBIN 14.6 g/dL (13.5-17.5); LYMPHOCYTES # (AUTO) 3.7 K/uL (1.0-4.8); LYMPHOCYTES % (AUTO) 20.9 % (22.0-44.0); MEAN CORPUSCULAR HEMOGLOBIN 31.7 pg (26.0-34.0); MEAN CORPUSCULAR HGB CONC 31.9 G/dL (31.0-37.0); MEAN CORPUSCULAR VOLUME 99 fL (80-100); MONOCYTES # (AUTO) 1.3 K/uL (0.1-1.0); NEUTROPHILS # (AUTO) 12.6 K/uL (1.8-7.7); NEUTROPHILS % (AUTO) 70.8 % (40.0-70.0); PLATELET COUNT (AUTO) 265 K/uL (150-450); RED CELL DISTRIBUTION WIDTH 21.5 % (11.5-14.5); WHITE BLOOD COUNT (AUTO) 17.8 K/uL (4.5-11.0)
[2016-05-19 15:39] LABS: ANION GAP 9 mmol/L (8-16); CALCIUM, TOTAL 9.5 mg/dL (8.8-10.5); CARBON DIOXIDE 31 mmol/L (22-29); CHLORIDE 118 mmol/L (98-107); CREATININE 1.19 mg/dL (0.60-1.30); GLOMERULAR FILTR. RATE CALC > 60 mL/min (>60); SODIUM SERUM 158 mmol/L (136-145); UREA NITROGEN, BLOOD 45 mg/dL (7-18)
[2016-05-19 15:40] LABS: INR 1.1 (0.9-1.1); PROTHROMBIN TIME 11.6 SEC (9.4-11.6)
[2016-05-19 15:42] LABS: APPEARANCE,URINE CLOUDY (CLEAR); GLUCOSE, URINE (UA) NEGATIVE (NEGATIVE); KETONES,URINE NEGATIVE (NEGATIVE); LEUKOCYTE ESTERASE ,URINE SMALL (NEGATIVE); OCCULT BLOOD,URINE NEGATIVE (NEGATIVE); PROTEIN,URINE POS 1+ (NEGATIVE)
[2016-05-19 15:43] LABS: ADD UA MICROSCOPIC YES
[2016-05-19 15:44] LABS: ALANINE AMINOTRANSFERASE 189 U/L (12-78); ALBUMIN 2.8 g/dL (3.4-5.0); ASPARTATE AMINOTRANSFERASE 86 U/L (15-37); BILIRUBIN,TOTAL 0.4 mg/dL (0.1-1.0); TOTAL PROTEIN, SERUM 7.6 g/dL (6.4-8.2)
[2016-05-19 15:46] LABS: LACTIC ACID 1.1 mmol/L (0.4-2.0)
[2016-05-19 15:50] LABS: RBC,URINE 0-2 /HPF (0-2); SQUAMOUS EPITHELIAL CELL,UR Rare /LPF (None Seen)
[2016-05-19 15:52] LABS: INFLUENZA TYPE B NEGATIVE FOR TYPE B (NEGATIVE)
[2016-05-19] MEDS ORDERED: CEFTAROLINE 600 MG/D5W 250 ML IV ONE (16:15)
[2016-05-19] MEDS ORDERED: WATER IV ONE (16:15)
[2016-05-19] MEDS ORDERED: DEXTROSE 5% IV ONE (16:15)
[2016-05-19] MEDS ORDERED: TOBRAMYCIN SULFATE IV ONE (16:15)
[2016-05-19] MEDS ORDERED: ONDANSETRON HCL 4 MG/2 ML VIAL IVP PRN (16:30)
[2016-05-19 16:44] LABS: RBC MORPHOLOGY COMMENT ABNORMAL RBC MORPH
[2016-05-19] MEDS ORDERED: DEXTROSE 5%-WATER 1,000 ML IV ONE (16:45)
[2016-05-19 16:58] LABS: PROCALCITONIN (PCT) < 0.05 ng/mL (<0.50)
[2016-05-19] MEDS ORDERED: ALBUTEROL SULFATE 2.5 MG/0.5 ML NEB SOLUTION NEB PRN (19:30)
[2016-05-19] MEDS ORDERED: *CLINICAL-LEVOFLOXACIN IVPB DOSING CLINICAL ONE ×2 (19:30)
[2016-05-19] MEDS: DOCUSATE SODIUM 250 MG CAPSULE PO SCH (21:00)
[2016-05-19 21:51] VITALS: BP 141/88
[2016-05-19] MEDS: HEPARIN SODIUM,PORCINE 5,000 UNITS/ML VIAL SQ SCH (22:28)
[2016-05-19] MEDS: METOPROLOL TARTRATE 25 MG TABLET PO SCH (22:28)
[2016-05-19] MEDS: CHOLECALCIFEROL (VIT D3) 1,000 UNITS TABLET PO SCH (22:28)
[2016-05-19 23:17] VITALS: BP 149/85
[2016-05-20 05:02] VITALS: BP 132/85
[2016-05-20] MEDS: DEXTROSE 5%-0.45% SODIUM CHL 1,000 ML IV SCH ×2 (05:24→19:18)
[2016-05-20 07:20] VITALS: BP 145/90
[2016-05-20 08:11] LABS: BASOPHILS % (AUTO) 0.3 % (0.0-2.0); EOSINOPHILS % (AUTO) 0.5 % (1.0-6.0); HEMATOCRIT 42.7 % (41-53); HEMOGLOBIN 13.5 g/dL (13.5-17.5); LYMPHOCYTES # (AUTO) 3.3 K/uL (1.0-4.8); LYMPHOCYTES % (AUTO) 20.2 % (22.0-44.0); MEAN CORPUSCULAR HEMOGLOBIN 31.5 pg (26.0-34.0); MEAN CORPUSCULAR HGB CONC 31.8 G/dL (31.0-37.0); MEAN CORPUSCULAR VOLUME 99 fL (80-100); MONOCYTES # (AUTO) 0.9 K/uL (0.1-1.0); MONOCYTES % (AUTO) 5.3 % (2.0-9.0); NEUTROPHILS # (AUTO) 11.9 K/uL (1.8-7.7); NEUTROPHILS % (AUTO) 73.7 % (40.0-70.0); PLATELET COUNT (AUTO) 225 K/uL (150-450); RED BLOOD CELL COUNT(AUTO) 4.29 MIL/uL (4.50-5.90); RED CELL DISTRIBUTION WIDTH 21.3 % (11.5-14.5); WHITE BLOOD COUNT (AUTO) 16.2 K/uL (4.5-11.0)
[2016-05-20 08:21] LABS: PHOSPHORUS 3.7 mg/dL (2.5-4.9)
[2016-05-20 09:13] LABS: RBC MORPHOLOGY COMMENT ABNORMAL RBC MORPH
[2016-05-20] MEDS: AmLODIPine BESYLATE 5 MG TABLET PO SCH (09:40)
[2016-05-20] MEDS: ASPIRIN 81 MG EC TABLET PO SCH (09:40)
[2016-05-20] MEDS: FAMOTIDINE 20 MG TABLET PO SCH (09:40)
[2016-05-20] MEDS: HEPARIN SODIUM,PORCINE 5,000 UNITS/ML VIAL SQ SCH ×2 (09:40→21:28)
[2016-05-20] MEDS: CHOLECALCIFEROL (VIT D3) 1,000 UNITS TABLET PO SCH ×2 (09:40→21:28)
[2016-05-20] MEDS: METOPROLOL TARTRATE 25 MG TABLET PO SCH ×2 (09:40→21:28)
[2016-05-20 10:06] LABS: ALANINE AMINOTRANSFERASE 139 U/L (12-78); ALBUMIN 2.5 g/dL (3.4-5.0); ANION GAP 11 mmol/L (8-16); ASPARTATE AMINOTRANSFERASE 56 U/L (15-37); BILIRUBIN,TOTAL 0.5 mg/dL (0.1-1.0); CALCIUM, TOTAL 9.3 mg/dL (8.8-10.5); CARBON DIOXIDE 29 mmol/L (22-29); CHLORIDE 118 mmol/L (98-107); CREATININE 1.01 mg/dL (0.60-1.30); GLOMERULAR FILTR. RATE CALC > 60 mL/min (>60); POTASSIUM 3.9 mmol/L (3.5-5.1); SODIUM SERUM 158 mmol/L (136-145); TOTAL PROTEIN, SERUM 6.9 g/dL (6.4-8.2); UREA NITROGEN, BLOOD 38 mg/dL (7-18)
[2016-05-20 11:17] VITALS: BP 133/72
[2016-05-20] MEDS: LEVOFLOXACIN 750 MG/D5% WATER 150 ML IV SCH (11:20)
[2016-05-20 15:25] VITALS: BP 147/89
[2016-05-20 21:03] VITALS: BP 141/67
[2016-05-20] MEDS: DOCUSATE SODIUM 250 MG CAPSULE PO SCH (21:28)
[2016-05-21] VITALS (7 sets, daily range): BP systolic 123–160; BP diastolic 60–92
[2016-05-21] MEDS ORDERED: 0.9% SODIUM CHLORIDE 10 ML SYRINGE IVP PRN (04:30)
[2016-05-21 07:10] LABS: ALANINE AMINOTRANSFERASE 118 U/L (12-78); ALBUMIN 2.3 g/dL (3.4-5.0); ANION GAP 9 mmol/L (8-16); ASPARTATE AMINOTRANSFERASE 50 U/L (15-37); BILIRUBIN,TOTAL 0.4 mg/dL (0.1-1.0); CALCIUM, TOTAL 9.2 mg/dL (8.8-10.5); CARBON DIOXIDE 29 mmol/L (22-29); CHLORIDE 117 mmol/L (98-107); GLOMERULAR FILTR. RATE CALC > 60 mL/min (>60); POTASSIUM 3.7 mmol/L (3.5-5.1); SODIUM SERUM 155 mmol/L (136-145); TOTAL PROTEIN, SERUM 6.6 g/dL (6.4-8.2); UREA NITROGEN, BLOOD 34 mg/dL (7-18)
[2016-05-21] MEDS: FAMOTIDINE 20 MG TABLET PO SCH (09:50)
[2016-05-21] MEDS: ASPIRIN 81 MG EC TABLET PO SCH (09:50)
[2016-05-21] MEDS: CHOLECALCIFEROL (VIT D3) 1,000 UNITS TABLET PO SCH ×2 (09:50→22:00)
[2016-05-21] MEDS: METOPROLOL TARTRATE 25 MG TABLET PO SCH ×2 (09:50→22:00)
[2016-05-21] MEDS: AmLODIPine BESYLATE 5 MG TABLET PO SCH (09:51)
[2016-05-21] MEDS: HEPARIN SODIUM,PORCINE 5,000 UNITS/ML VIAL SQ SCH ×2 (09:51→22:00)
[2016-05-21] MEDS: DEXTROSE 5%-0.45% SODIUM CHL 1,000 ML IV SCH (09:54)
[2016-05-21] MEDS: LEVOFLOXACIN 750 MG/D5% WATER 150 ML IV SCH (09:59)
[2016-05-21] MEDS ORDERED: SODIUM CHLORIDE 0.9% 250 ML IV ONE (10:41)
[2016-05-21] MEDS ORDERED: DEXTROSE 5%-WATER 1,000 ML IV SCH (18:30)
[2016-05-21] MEDS: DOCUSATE SODIUM 250 MG CAPSULE PO SCH (22:00)
[2016-05-22 04:07] VITALS: BP 136/75
[2016-05-22 07:10] VITALS: BP 127/61
[2016-05-22 07:16] LABS: ANION GAP 7 mmol/L (8-16); CALCIUM, TOTAL 8.8 mg/dL (8.8-10.5); CARBON DIOXIDE 28 mmol/L (22-29); CHLORIDE 108 mmol/L (98-107); CREATININE 0.85 mg/dL (0.60-1.30); GLOMERULAR FILTR. RATE CALC > 60 mL/min (>60); POTASSIUM 3.6 mmol/L (3.5-5.1); SODIUM SERUM 143 mmol/L (136-145); UREA NITROGEN, BLOOD 25 mg/dL (7-18)
[2016-05-22] MEDS: FAMOTIDINE 20 MG TABLET PO SCH (08:45)
[2016-05-22] MEDS: CHOLECALCIFEROL (VIT D3) 1,000 UNITS TABLET PO SCH ×2 (08:45→21:54)
[2016-05-22] MEDS: AmLODIPine BESYLATE 5 MG TABLET PO SCH (08:46)
[2016-05-22] MEDS: ASPIRIN 81 MG EC TABLET PO SCH (08:46)
[2016-05-22] MEDS: HEPARIN SODIUM,PORCINE 5,000 UNITS/ML VIAL SQ SCH ×2 (08:47→21:54)
[2016-05-22] MEDS: METOPROLOL TARTRATE 25 MG TABLET PO SCH ×2 (08:47→21:54)
[2016-05-22] MEDS: LEVOFLOXACIN 750 MG/D5% WATER 150 ML IV SCH (10:05)
[2016-05-22 11:36] VITALS: BP 114/85
[2016-05-22 15:12] VITALS: BP 139/95
[2016-05-22 19:31] VITALS: BP 134/99
[2016-05-22] MEDS: DOCUSATE SODIUM 250 MG CAPSULE PO SCH (21:54)
[2016-05-23] VITALS (7 sets, daily range): BP systolic 108–150; BP diastolic 72–87
[2016-05-23 06:43] LABS: ANION GAP 8 mmol/L (8-16); CALCIUM, TOTAL 8.9 mg/dL (8.8-10.5); CARBON DIOXIDE 28 mmol/L (22-29); CHLORIDE 109 mmol/L (98-107); GLOMERULAR FILTR. RATE CALC > 60 mL/min (>60); POTASSIUM 4.1 mmol/L (3.5-5.1); SODIUM SERUM 145 mmol/L (136-145); UREA NITROGEN, BLOOD 18 mg/dL (7-18)
[2016-05-23] MEDS: CHOLECALCIFEROL (VIT D3) 1,000 UNITS TABLET PO SCH ×2 (08:48→21:55)
[2016-05-23] MEDS: METOPROLOL TARTRATE 25 MG TABLET PO SCH ×2 (08:48→21:55)
[2016-05-23] MEDS: AmLODIPine BESYLATE 5 MG TABLET PO SCH (08:48)
[2016-05-23] MEDS: ASPIRIN 81 MG EC TABLET PO SCH (08:48)
[2016-05-23] MEDS: FAMOTIDINE 20 MG TABLET PO SCH (08:48)
[2016-05-23] MEDS: HEPARIN SODIUM,PORCINE 5,000 UNITS/ML VIAL SQ SCH ×2 (08:49→21:55)
[2016-05-23] MEDS ORDERED: SODIUM CHLORIDE 0.9% 250 ML IV ONE (09:31)
[2016-05-23] MEDS: LEVOFLOXACIN 750 MG/D5% WATER 150 ML IV SCH (09:36)
[2016-05-23] MEDS: ALBUTEROL SULFATE 2.5 MG/0.5 ML NEB SOLUTION NEB SCH ×2 (19:36→23:18)
[2016-05-23] MEDS: IPRATROPIUM BROMIDE 0.5 MG/2.5 ML NEB SOLUTION NEB SCH ×2 (19:37→23:18)
[2016-05-23] MEDS: DOCUSATE SODIUM 250 MG CAPSULE PO SCH (21:00)
[2016-05-23] MEDS ORDERED: 0.9% SODIUM CHLORIDE 5 ML NEB SOLUTION NEB ONE (23:11)
[2016-05-24] MEDS: IPRATROPIUM BROMIDE 0.5 MG/2.5 ML NEB SOLUTION NEB SCH ×3 (03:17→12:44)
[2016-05-24] MEDS: ALBUTEROL SULFATE 2.5 MG/0.5 ML NEB SOLUTION NEB SCH ×3 (03:18→12:44)
[2016-05-24 04:18] VITALS: BP 138/80
[2016-05-24 08:29] VITALS: BP 124/76
[2016-05-24] MEDS: AmLODIPine BESYLATE 5 MG TABLET PO SCH (09:07)
[2016-05-24] MEDS: ASPIRIN 81 MG EC TABLET PO SCH (09:07)
[2016-05-24] MEDS: FAMOTIDINE 20 MG TABLET PO SCH (09:07)
[2016-05-24] MEDS: METOPROLOL TARTRATE 25 MG TABLET PO SCH (09:08)
[2016-05-24] MEDS: CHOLECALCIFEROL (VIT D3) 1,000 UNITS TABLET PO SCH (09:08)
[2016-05-24] MEDS: HEPARIN SODIUM,PORCINE 5,000 UNITS/ML VIAL SQ SCH (09:09)
[2016-05-24 10:59] LABS: ANION GAP 6 mmol/L (8-16); CALCIUM, TOTAL 9.3 mg/dL (8.8-10.5); CARBON DIOXIDE 30 mmol/L (22-29); CHLORIDE 105 mmol/L (98-107); CREATININE 0.78 mg/dL (0.60-1.30); GLOMERULAR FILTR. RATE CALC > 60 mL/min (>60); POTASSIUM 3.8 mmol/L (3.5-5.1); SODIUM SERUM 141 mmol/L (136-145); UREA NITROGEN, BLOOD 14 mg/dL (7-18)
[2016-05-24] MEDS: LEVOFLOXACIN 750 MG/D5% WATER 150 ML IV SCH (11:17)
[2016-05-24 12:19] VITALS: BP 141/68
[2016-05-24] MEDS ORDERED: LEVO500 PO (13:15)
== END 2016-05-24 14:30 | DRG 193 ==
LOC: EMS 14:30 → 5N 20:00
PROVIDERS: ADMIT Internal Medicine; ATTEND Internal Medicine
DX: J18.9 Pneumonia, unspecified organism (principal); G93.40 Encephalopathy, unspecified; N39.0 Urinary tract infection, site not specified; E87.0 Hyperosmolality and hypernatremia; C34.90 Malignant neoplasm of unspecified part of unspecified bronchus or lung; F20.0 Paranoid schizophrenia; E44.0 Moderate protein-calorie malnutrition; I10 Essential (primary) hypertension; E55.9 Vitamin D deficiency, unspecified; E78.5 Hyperlipidemia, unspecified; K21.9 Gastro-esophageal reflux disease without esophagitis; E86.0 Dehydration; J98.01 Acute bronchospasm; F03.90 Unspecified dementia, unspecified severity, without behavioral disturbance, psychotic disturbance, mood disturbance, and anxiety; B96.4 Proteus (mirabilis) (morganii) as the cause of diseases classified elsewhere; Z85.118 Personal history of other malignant neoplasm of bronchus and lung; Z85.820 Personal history of malignant melanoma of skin; Z93.1 Gastrostomy status
CPT/HCPCS: 82962; 83605; 83735; 83935; 84100; 84145; 86140; 87040; 87081; 87086; 87804; 93005; 94640; 96361; 96365; 96366; 96368; 96375; 97167; 99291; J0131; J1644; J1956; J3260; J7030; J7050; J7060